=== PATIENT | female | born 1990 | race Caucasian/White ===

== ENCOUNTER → 2016-10-07 | Outpatient (CLI) | payer OTHER ==
[~2016-10-07] MED LIST: FLX10 PO; LRT5 PO; PENI-82 PO
== END | disposition home or self-care (01) ==
LOC: C.PAPS 14:28
PROVIDERS: ATTEND Obstetrics & Gynecology
DX: Z01.419 Encounter for gynecological examination (general) (routine) without abnormal findings (principal)

== ENCOUNTER 2023-09-21 04:44 | Inpatient (IN) ==
[2023-09-21] MEDS ORDERED: OXYTOCIN 30 UNITS/NSS 30 UNITS/500 ML BAG IV PRN (05:49)
[2023-09-21] MEDS ORDERED: LIDOCAINE 1% LOCAL 20 ML VIAL INFIL PRN (05:49)
[2023-09-21] MEDS: LACTATED RINGER'S 1,000 ML IV PRN (06:26)
[2023-09-21 06:36] LABS: Hematocrit (blood only) 37.4 % (37.0-47.0); Hemoglobin 12.6 g/dl (12.0-16.0); Mean Corpuscular Hemoglobin 30.8 pg (25.0-34.0); Mean Corpuscular Hgb Conc 33.7 g/dL (32.0-36.0); Mean Corpuscular Volume 91.4 fL (80.0-100.0); Mean Platelet Volume 11.3 fL (9.4-12.4); Platelet Count 209 K/uL (130-400); RDW Coefficient of Variation 14.7 % (11.5-14.5); RDW Standard Deviation 49.7 fL (36.4-46.3); Red Blood Count 4.09 M/uL (4.20-5.40); White Blood Count 10.19 K/ul (4.8-10.8)
--- NOTE | 2023-09-21 07:06 | History & Physical Report ---
Date of Service September 21, 2023 Assessment & Plan (1) Term : Plan: Will start Oxytocin to augment contractions Admission and Anticipated Discharge Date Admission Date: September 21, 2023 History of Present Illness Chief Complaint: water broke this morning Primary Care Provider: MARY ANN PCP 33 F P0000 at 39.3 weeks admitted to L&D at [facility] with SROM clear fluid without active contractions. GBS is negative. Allergies Allergy/AdvReac Type Severity Reaction Status Date / Time chlorpheniramine Allergy Unknown (from Verified 09/21/23 05:54 [facility]) unknown rxn Penicillins Allergy Unknown Unknown Verified 09/21/23 05:20 phenylephrine Allergy Unknown (from Verified 09/21/23 05:54 [facility]) unknown rxn lactose Allergy Abdominal Verified 09/21/23 05:21 Pain Home Medications Medication Instructions Recorded Confirmed Type prenat.vits,kirstie,[id number] 1 tab PO DAILY 11/26/21 09/21/23 History albuterol sulfate 90 mcg/actuation inhalation 09/21/23 History aerosol inhaler magnesium 250 mg tablet 250 mg PO DAILY 09/21/23 09/21/23 History omeprazole 20 mg tablet,delayed 20 mg PO DAILY 09/21/23 09/21/23 History release Patient History Medical History History of chicken pox Surgical History S/P surgical removal of pilonidal cyst Family History Grandmother (Paternal) Diabetes Hypertension Dyslipidemia Aunt Diabetes Ovarian cancer Paternal Grandfather (Paternal) Hypertension Dyslipidemia Mother Ulcerative colitis Denies family history of Breast cancer Colorectal cancer Social History (Updated 11/26/21 @ 10:06 by Gena Dutton) Smoking Status: Never smoker Do You Dip or Chew Tobacco: No; Hx Alcohol Use: Yes (Not during ) Hx Substance Use: No Preferred Language: Frisian Communication Ability: Effective Fabrication Supervisor Required: No Beliefs That Will Affect Care: None marital status: marital status details: Gal Riley (33) Current Living Situation: Spouse Current Living Situation Comment: lives with spouse, rabbit current occupational status: employed 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 Other Information That Helps Us Care for You: No Feels Safe at Home: Yes Safety Concerns: Feels Safe At This Time Assistive Devices: None 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 Review of Systems All systems reviewed & are unremarkable except as noted in HPI & below Physical Exam Constitutional: WD/WN, vitals as above Eyes: PERRL, conjunctivae normal, anicteric sclerae Respiratory: normal respiratory effort, lungs clear to auscultation Cardiovascular: RRR, no murmur, no edema Gastrointestinal (Abdomen): Inspection/Auscultation: abdomen normal to inspection Musculoskeletal: Extremities: extremities normal to inspection Skin: no rashes, warm and dry Neurologic: patellar DTR's 2+ bilat, sensation intact Psychiatric: A+Ox3, euthymic affect Genitourinary: Manual OB Exam: + cervical dilation fingertip, + cervical effacement 80%, + station high and + amniotic fluid clear OB Exam Monitor Tracing: + external FHT monitor used, + external uterine monitor used, + category I and + normal FHT variability EFW 7.5-8 lbs. Results & Data Vital Signs (Past 12 Hours) Vital Signs Temp Pulse Resp BP 09/21/23 06:31 18 09/21/23 06:31 36.4 C L 18 09/21/23 05:17 36.5 C 18 09/21/23 05:00 121 H 137/84 09/21/23 04:58 18 09/21/23 04:58 36.5 C 18 Laboratory Results Laboratory Results - last 48 hr 09/21/23 06:05 WBC 10.19 RBC 4.09 L Hgb 12.6 Hct 37.4 MCV 91.4 MCH 30.8 MCHC 33.7 RDW Std Deviation 49.7 H RDW Coeff of Caroline 14.7 H Plt Count 209 MPV 11.3 Monitoring External Monitor Cat 1
[2023-09-21] MEDS: OXYTOCIN 30 UNITS/NSS 30 UNITS/500 ML BAG IV PRN (07:28)
--- NOTE | 2023-09-21 09:24 | Obstetrical Progress Note ---
Date of Service September 21, 2023 Assessment & Plan Admission and Anticipated Discharge Date Admission Date: September 21, 2023 Subjective Patient is seen and examined. Reviewed her records and confirmed with her. She is 33-year-old -0-2-0 at 39 weeks and 4 days of gestation admitted this morning for SROM at 0 3:30 AM. Has been leaking clear fluids. Her has been uncomplicated except history of asthma, sinus tachycardia, anemia, status post IV iron infusions with normal H&H now. GBS negative She was started on oxytocin per protocol to augment contractions, now at 7 milliunits/min. she feels well, no complaints plans to get epidural when contractions get more painful. Vision exam by myself, lose 1 cm, 50% effaced, head is at -3 station. heart rate was tachycardic this morning and she was given IV fluid bolus of 500 mL and improved, now baseline is 150, category 1. Discussed the findings and what to expect. All questions were answered. Will continue to monitor closely and epidural when patient desires. Lab Results 09/21/23 09/21/23 Range/Units 05:30 06:05 WBC 10.19 (4.8-10.8) K/ul RBC 4.09 L (4.20-5.40) M/uL Hgb 12.6 (12.0-16.0) g/dl Hct 37.4 (37.0-47.0) % MCV 91.4 (80.0-100.0) fL MCH 30.8 (25.0-34.0) pg MCHC 33.7 (32.0-36.0) g/dL RDW Std Deviation 49.7 H (36.4-46.3) fL RDW Coeff of Caroline 14.7 H (11.5-14.5) % Plt Count 209 (130-400) K/uL MPV 11.3 (9.4-12.4) fL Amniotic Protein POS Results & Data Vital Signs (Past 12 Hours) Vital Signs Temp Pulse Resp BP 09/21/23 08:40 109 H 114/71 09/21/23 07:15 115 H 120/61 09/21/23 06:31 18 09/21/23 06:31 36.4 C L 18 09/21/23 05:17 36.5 C 18 09/21/23 05:00 121 H 137/84 09/21/23 04:58 18 09/21/23 04:58 36.5 C 18
--- NOTE | 2023-09-21 13:28 | Anesthesiology Consultation ---
Date of Service September 21, 2023 Assessment & Plan Chart Review Chart Review: Patient NOT seen in Pre Admission Testing and Acceptable Risk for Labor Epidural Consults Requested none ASA ASA2 Proposed Anesthesia Anesthesia Type: Labor Epidural Risk / Benefits Reviewed With: PT / POA / Parent / Guardian, Accepts Plan and Informed Consent Obtained History Height/Weight Height: 5 ft 1 in Weight: 75.8 kg Allergies Allergy/AdvReac Type Severity Reaction Status Date / Time chlorpheniramine Allergy Unknown (from Verified 09/21/23 05:54 [facility]) unknown rxn Penicillins Allergy Unknown Unknown Verified 09/21/23 05:20 phenylephrine Allergy [facility] unknown rxn lactose Allergy Abdominal Verified 09/21/23 05:21 Pain Medications Home Medications Medication Instructions Recorded Confirmed Last Taken prenat.vits,kirstie,[id number] 1 tab PO DAILY 11/26/21 09/21/23 09/20/23 21:00 albuterol sulfate 90 mcg/actuation inhalation 09/21/23 Unknown aerosol inhaler magnesium 250 mg tablet 250 mg PO DAILY 09/21/23 09/21/23 09/20/23 21:00 omeprazole 20 mg tablet,delayed 20 mg PO DAILY 09/21/23 09/21/23 09/20/23 10:30 release Active Medications Generic Name Dose Route Start Last Admin Trade Name Freq PRN Reason Stop Dose Admin Lactated Ringer's 1,000 mls @ 150 mls/hr 09/21/23 05:49 09/21/23 09:34 Lr IV 09/23/23 05:48 150 mls/hr .[id number] PRN Administration L&D Protocol Protocol Oxytocin 30 units in 500 mls @ 20 mls/hr 09/21/23 07:01 09/21/23 13:05 Pitocin 30 Units/Nss IV 09/23/23 07:00 1.2 units/hr .Q24H PRN 20 mls/hr Labor Induction/Augmentation Titration Protocol 1.2 UNITS/HR NPO Date Last Intake of Fluids: 09/21/23 Time Last Intake of Fluids: 13:00 Date Last Intake of Solids: 09/20/23 Time Last Intake of Solids: 20:00 Past Medical History Medical History History of chicken pox Exercise / Class Metabolic Activity 1 > 8 Run/Swim/Ski/Tennis Past Family History Family History Grandmother (Paternal) Diabetes Hypertension Dyslipidemia Aunt Diabetes Ovarian cancer Paternal Grandfather (Paternal) Hypertension Dyslipidemia Mother Ulcerative colitis Denies family history of Breast cancer Colorectal cancer Past Surgical History Surgical History S/P surgical removal of pilonidal cyst Past Anesthesia History No Hx of Anesthesia Complications and No Family Hx of Anesthesia Complications History of PONV No Hx of PONV and No Hx of Motion Sickness Social History Smoking Status: Never smoker Do You Dip or Chew Tobacco: No Hx Alcohol Use: Yes (Not during ) Hx Substance Use: No Review of Systems ROS Unobtainable: All systems reviewed & are unremarkable except as noted in HPI & below Physical Exam Vital Signs Last Vital Signs Temp 36.4 C L 09/21/23 06:31 Pulse 89 09/21/23 13:25 Resp 18 09/21/23 06:31 BP 129/69 09/21/23 13:24 Pulse Ox 100 09/21/23 13:25 ENMT Mouth: no TMJ abnormality Thyromental Distance: > or= 3.5 Finger Breadths Mallampati Class: II Neck normal visual inspection and trachea midline; neck extension not limited Respiratory normal respiratory effort Auscultation: lungs clear to auscultation bilaterally Cardiovascular Rate/Rhythm: regular rate and regular rhythm Heart Sounds: no murmur Musculoskeletal Spine: normal cervical ROM Extremities: full ROM of extremities Neurologic moves all extremities Psychiatric Orientation: alert and oriented x 3 Testing Laboratory Results 09/21/23 06:05
[2023-09-21] MEDS ORDERED: LIDOCAINE 2%/EPINEPHRINE 1:200,000 20 ML PF ONE (13:33)
[2023-09-21] MEDS: fentANYL 2 MCG/ML BUPIVacaine 0.125%-NSS 100ML BAG ONE (13:46)
[2023-09-21] MEDS ORDERED: NALOXONE HCL 1 MG in SODIUM CHLORIDE 0.9% 1,000 ML IV PRN (13:50)
[2023-09-21] MEDS ORDERED: SODIUM CHLORIDE 0.9% PF INJ 10 ML VIAL EPI PRN (13:50)
[2023-09-21] MEDS ORDERED: NALOXONE HCL 0.4 MG/1 ML VIAL/CARP IV PRN (13:50)
[2023-09-21] MEDS ORDERED: LIDOCAINE 2% MPF LOCAL 5 ML VIAL EPI PRN (13:50)
[2023-09-21] MEDS ORDERED: ePHEDrine sulfate 50 MG/ML AMP IV PRN (13:50)
[2023-09-21] MEDS ORDERED: diphenhydrAMINE 50 MG/ML VIAL IV PRN (13:50)
[2023-09-21] MEDS ORDERED: fentaNYL citrate PF 100 MCG/2 ML VIAL EPI PRN (13:50)
[2023-09-21] MEDS ORDERED: BUPIVACAINE 0.25% PF 30 ML VIAL EPI PRN (13:50)
[2023-09-21] MEDS: fentaNYL citrate PF 100 MCG/2 ML VIAL ONE (13:50)
[2023-09-21] MEDS ORDERED: NALBUPHINE HCL 5 MG in SYRINGE 0 ML IV PRN (13:50)
[2023-09-21] MEDS: BUPIVACAINE 0.25% PF 30 ML VIAL ONE (13:50)
[2023-09-21] MEDS ORDERED: ROPIVACAINE 0.5% PF 5 MG/ML 20 ML VIAL EPI PRN (13:50)
[2023-09-21] MEDS: ePHEDrine sulfate 50 MG/ML AMP ONE (14:24)
[2023-09-21] MEDS: SODIUM CHLORIDE 0.9% PF INJ 10 ML VIAL ONE (14:25)
[2023-09-21] MEDS ORDERED: Nursing to Pharmacy Communication SCH (16:45)
--- NOTE | 2023-09-21 18:35 | Obstetrical Progress Note ---
Date of Service September 21, 2023 Assessment & Plan Admission and Anticipated Discharge Date Admission Date: September 21, 2023 Subjective Late entry from 4:45 pm Patient is comfortable Oxytocin has been at 20 miu/min. VE: 3-4 cm/ 70%/-2, IUPC was placed FHR categ I Continue to monitor Adjust the dose of Oxytocin per readings. Results & Data Vital Signs (Past 12 Hours) Vital Signs Temp Pulse Resp BP Pulse Ox 09/21/23 18:30 93 H 100 09/21/23 18:26 88 119/63 09/21/23 18:25 86 99 09/21/23 18:20 104 H 98 09/21/23 18:15 98 H 99 09/21/23 18:11 100 H 114/57 L 09/21/23 18:10 106 H 100 09/21/23 18:05 97 H 98 09/21/23 18:01 18 09/21/23 18:01 36.8 C 18 09/21/23 18:00 93 H 99 09/21/23 17:55 100 09/21/23 17:55 93 H 09/21/23 17:55 94 H 102/56 L 09/21/23 17:50 88 99 09/21/23 17:45 82 99 09/21/23 17:40 94 H 113/57 L 100 09/21/23 17:35 89 99 09/21/23 17:30 37.3 C 90 99 09/21/23 17:26 90 110/54 L 09/21/23 17:25 107 H 99 09/21/23 17:20 79 100 09/21/23 17:15 85 99 09/21/23 17:10 100 09/21/23 17:10 83 09/21/23 17:10 83 129/67 09/21/23 17:05 81 100 09/21/23 17:00 81 100 09/21/23 16:55 82 100 09/21/23 16:54 86 123/70 09/21/23 16:50 103 H 100 09/21/23 16:45 92 H 100 09/21/23 16:42 87 140/77 09/21/23 16:40 85 99 09/21/23 16:35 77 99 09/21/23 16:30 78 100 09/21/23 16:27 77 125/67 09/21/23 16:25 81 100 09/21/23 16:20 90 100 09/21/23 16:15 99 H 100 09/21/23 16:10 100 09/21/23 16:10 87 09/21/23 16:10 87 129/62 91 09/21/23 16:05 83 100 09/21/23 16:00 91 H 100 09/21/23 15:55 93 H 127/64 100 09/21/23 15:50 75 100 09/21/23 15:45 85 100 09/21/23 15:40 95 H 100 09/21/23 15:35 72 100 09/21/23 15:30 69 99 09/21/23 15:25 100 09/21/23 15:25 89 05 15:25 71 126/68 09/21/23 15:20 78 100 09/21/23 15:15 86 96 09/21/23 15:11 76 122/71 09/21/23 15:10 78 100 09/21/23 15:05 100 H 98 09/21/23 15:00 72 100 09/21/23 14:55 75 121/67 100 09/21/23 14:50 74 100 09/21/23 14:45 68 99 09/21/23 14:40 99 09/21/23 14:40 71 09/21/23 14:40 67 115/63 09/21/23 14:35 71 99 09/21/23 14:30 70 99 09/21/23 14:25 71 113/71 100 09/21/23 14:22 73 92 09/21/23 14:20 70 98 09/21/23 14:15 75 99 09/21/23 14:10 87 116/64 98 09/21/23 14:05 89 98 09/21/23 14:00 36.5 C 16 09/21/23 14:00 80 99 09/21/23 13:55 84 99 09/21/23 13:54 86 121/75 09/21/23 13:51 83 124/74 09/21/23 13:50 98 09/21/23 13:50 83 05 13:50 85 126/77 09/21/23 13:47 96 H 119/73 09/21/23 13:45 91 H 124/69 99 05/30/24 13:42 96 H 121/70 09/21/23 13:40 97 H 100 09/21/23 13:39 91 H 130/74 09/21/23 13:35 100 H 100 09/21/23 13:31 110 H 131/84 09/21/23 13:30 96 H 100 09/21/23 13:25 89 100 09/21/23 13:24 84 129/69 09/21/23 13:20 96 H 100 09/21/23 13:18 91 H 129/69 09/21/23 13:15 88 100 09/21/23 12:31 98 H 129/83 09/21/23 12:01 90 126/74 09/21/23 11:30 96 H 132/77 09/21/23 11:00 36.5 C 16 09/21/23 08:40 109 H 114/71 09/21/23 08:00 36.5 C 18 09/21/23 07:15 115 H 120/61
--- NOTE | 2023-09-21 20:10 | Obstetrical Progress Note ---
Date of Service September 21, 2023 Assessment & Plan Admission and Anticipated Discharge Date Admission Date: September 21, 2023 Subjective Patient is reevaluated She is sitting on high Fowlers position VE; 7-8 cm/ 90%/ 0 to +1 FHR categ I [place], IUPC with ctxs q 2-3 min, 210 MVIU, Oxytocin is at 26 miu/min Continue to monitor Start IV AB, Cfeazolin, for prolonged ROM, has used Keflex before with no reaction Results & Data Vital Signs (Past 12 Hours) Vital Signs Temp Pulse Resp BP Pulse Ox 09/21/23 20:05 102 H 99 09/21/23 20:00 98 H 99 09/21/23 19:55 94 H 98 09/21/23 19:54 90 122/75 09/21/23 19:50 100 H 98 09/21/23 19:45 107 H 97 09/21/23 19:40 110 H 98 09/21/23 19:39 88 130/76 09/21/23 19:35 106 H 98 09/21/23 19:30 102 H 100 09/21/23 19:25 99 H 99 09/21/23 19:20 90 99 09/21/23 19:15 36.8 C 106 H 18 98 09/21/23 19:10 97 H 129/63 98 09/21/23 19:05 102 H 98 09/21/23 19:00 93 H 99 09/21/23 18:55 105 H 98 09/21/23 18:54 110 H 118/67 09/21/23 18:50 90 99 09/21/23 18:45 94 H 99 09/21/23 18:40 100 H 99 09/21/23 18:39 90 121/66 09/21/23 18:35 94 H 100 09/21/23 18:30 93 H 100 09/21/23 18:26 88 119/63 09/21/23 18:25 86 99 09/21/23 18:20 104 H 98 09/21/23 18:15 98 H 99 09/21/23 18:11 100 H 114/57 L 09/21/23 18:10 106 H 100 09/21/23 18:05 97 H 98 09/21/23 18:01 18 09/21/23 18:01 36.8 C 18 09/21/23 18:00 93 H 99 09/21/23 17:55 100 09/21/23 17:55 93 H 09/21/23 17:55 94 H 102/56 L 09/21/23 17:50 88 99 09/21/23 17:45 82 99 09/21/23 17:40 94 H 113/57 L 100 09/21/23 17:35 89 99 09/21/23 17:30 37.3 C 90 99 09/21/23 17:26 90 110/54 L 09/21/23 17:25 107 H 99 09/21/23 17:20 79 100 09/21/23 17:15 85 99 09/21/23 17:10 100 09/21/23 17:10 83 09/21/23 17:10 83 129/67 09/21/23 17:05 81 100 09/21/23 17:00 81 100 09/21/23 16:55 82 100 09/21/23 16:54 86 123/70 09/21/23 16:50 103 H 100 09/21/23 16:45 92 H 100 09/21/23 16:42 87 140/77 09/21/23 16:40 85 99 09/21/23 16:35 77 99 09/21/23 16:30 78 100 09/21/23 16:27 77 125/67 09/21/23 16:25 81 100 09/21/23 16:20 90 100 09/21/23 16:15 99 H 100 09/21/23 16:10 100 09/21/23 16:10 87 09/21/23 16:10 87 129/62 91 09/21/23 16:05 83 100 09/21/23 16:00 91 H 100 09/21/23 15:55 93 H 127/64 100 09/21/23 15:50 75 100 09/21/23 15:45 85 100 09/21/23 15:40 95 H 100 09/21/23 15:35 72 100 09/21/23 15:30 69 99 09/21/23 15:25 100 09/21/23 15:25 89 05 15:25 71 126/68 09/21/23 15:20 78 100 09/21/23 15:15 86 96 09/21/23 15:11 76 122/71 05/30/24 15:10 78 100 09/21/23 15:05 100 H 98 09/21/23 15:00 72 100 09/21/23 14:55 75 121/67 100 09/21/23 14:50 74 100 09/21/23 14:45 68 99 09/21/23 14:40 99 09/21/23 14:40 71 09/21/23 14:40 67 115/63 09/21/23 14:35 71 99 09/21/23 14:30 70 99 09/21/23 14:25 71 113/71 100 09/21/23 14:22 73 92 09/21/23 14:20 70 98 09/21/23 14:15 75 99 09/21/23 14:10 87 116/64 98 09/21/23 14:05 89 98 09/21/23 14:00 36.5 C 16 09/21/23 14:00 80 99 09/21/23 13:55 84 99 09/21/23 13:54 86 121/75 09/21/23 13:51 83 124/74 09/21/23 13:50 98 09/21/23 13:50 83 09/21/23 13:50 85 126/77 09/21/23 13:47 96 H 119/73 09/21/23 13:45 91 H 124/69 99 09/21/23 13:42 96 H 121/70 09/21/23 13:40 97 H 100 09/21/23 13:39 91 H 130/74 05 13:35 100 H 100 09/21/23 13:31 110 H 131/84 09/21/23 13:30 96 H 100 09/21/23 13:25 89 100 09/21/23 13:24 84 129/69 09/21/23 13:20 96 H 100 09/21/23 13:18 91 H 129/69 09/21/23 13:15 88 100 09/21/23 12:31 98 H 129/83 09/21/23 12:01 90 126/74 09/21/23 11:30 96 H 132/77 09/21/23 11:00 36.5 C 16 09/21/23 08:40 109 H 114/71
[2023-09-21] MEDS: ceFAZolin 2000MG 2,000 MG/15 ML SYR IV SCH (21:07)
[2023-09-21] MEDS: fentANYL 2 MCG/ML BUPIVacaine 0.125%-NSS 100ML BAG EPI PRN (21:41)
--- NOTE | 2023-09-21 23:24 | Obstetrical Progress Note ---
Date of Service September 21, 2023 Assessment & Plan Admission and Anticipated Discharge Date Admission Date: September 21, 2023 Subjective Patient is reevalauted. She feels crampy, no pressure VSS Afebrile, FHR categ I [place] ctx q 2-3 min, 200-210 MVU VE; 8/ 90%/ 0 to +1 with contraction, coned head Bed side US: Direct OP, Measurements limited due to head in pelvis and no fluids around baby, EFW 3614 lb, 8 lb, +/- 1 lb Mom in 5 feet 1 inch Discussed the findings with change in cervix despite adequate contractions Discussed OP, Possible CPD, LGA Options of either C section now or stop Oxytocin for 1 hour and restart Patient wants to think about it and decide. Continue to monitor Results & Data Vital Signs (Past 12 Hours) Vital Signs Temp Pulse Resp BP Pulse Ox 09/21/23 23:16 81 100 09/21/23 23:11 91 H 100 09/21/23 23:06 85 100 09/21/23 23:01 101 H 100 09/21/23 22:56 89 100 09/21/23 22:54 99 H 124/68 09/21/23 22:51 91 H 99 09/21/23 22:46 84 99 09/21/23 22:41 100 09/21/23 22:41 81 09/21/23 22:41 81 136/71 09/21/23 22:36 86 100 09/21/23 22:31 84 100 09/21/23 22:30 18 09/21/23 22:30 18 09/21/23 22:26 77 99 09/21/23 22:25 96 H 136/77 09/21/23 22:21 89 100 09/21/23 22:16 84 99 09/21/23 22:11 72 99 09/21/23 22:09 90 124/70 09/21/23 22:06 85 100 09/21/23 22:01 77 100 09/21/23 22:00 18 09/21/23 22:00 18 09/21/23 21:56 76 139/76 100 09/21/23 21:51 70 100 09/21/23 21:46 76 100 09/21/23 21:41 73 100 09/21/23 21:40 76 118/75 09/21/23 21:36 87 100 09/21/23 21:31 71 100 09/21/23 21:30 20 09/21/23 21:30 20 09/21/23 21:26 100 09/21/23 21:26 80 09/21/23 21:26 71 131/73 09/21/23 21:25 37.0 C 09/21/23 21:21 78 100 09/21/23 21:16 72 100 09/21/23 21:11 86 100 09/21/23 21:10 85 123/64 09/21/23 21:06 71 100 09/21/23 21:01 85 99 09/21/23 21:00 18 09/21/23 21:00 18 09/21/23 20:56 85 100 09/21/23 20:54 83 126/73 09/21/23 20:51 74 99 09/21/23 20:46 82 100 09/21/23 20:41 71 99 09/21/23 20:40 74 123/63 09/21/23 20:36 80 100 09/21/23 20:31 81 100 09/21/23 20:30 18 09/21/23 20:30 18 09/21/23 20:26 79 100 09/21/23 20:25 81 121/62 09/21/23 20:21 79 100 09/21/23 20:16 79 100 09/21/23 20:11 81 118/65 100 09/21/23 20:05 102 H 99 09/21/23 20:00 98 H 18 99 09/21/23 19:55 94 H 98 09/21/23 19:54 90 122/75 09/21/23 19:50 100 H 98 09/21/23 19:45 107 H 97 09/21/23 19:40 110 H 98 09/21/23 19:39 88 130/76 09/21/23 19:35 106 H 98 09/21/23 19:30 102 H 100 09/21/23 19:25 99 H 99 09/21/23 19:20 36.8 C 20 09/21/23 19:20 90 99 09/21/23 19:15 36.8 C 106 H 18 98 09/21/23 19:10 97 H 129/63 98 09/21/23 19:05 102 H 98 09/21/23 19:00 93 H 99 09/21/23 18:55 105 H 98 09/21/23 18:54 110 H 118/67 09/21/23 18:50 90 99 09/21/23 18:45 94 H 99 09/21/23 18:40 100 H 99 09/21/23 18:39 90 121/66 09/21/23 18:35 94 H 100 09/21/23 18:30 93 H 100 09/21/23 18:26 88 119/63 09/21/23 18:25 86 99 09/21/23 18:20 104 H 98 09/21/23 18:15 98 H 99 09/21/23 18:11 100 H 114/57 L 09/21/23 18:10 106 H 100 09/21/23 18:05 97 H 98 09/21/23 18:01 18 09/21/23 18:01 36.8 C 18 09/21/23 18:00 93 H 99 09/21/23 17:55 100 09/21/23 17:55 93 H 09/21/23 17:55 94 H 102/56 L 09/21/23 17:50 88 99 09/21/23 17:45 82 99 09/21/23 17:40 94 H 113/57 L 100 09/21/23 17:35 89 99 09/21/23 17:30 37.3 C 90 99 09/21/23 17:26 90 110/54 L 09/21/23 17:25 107 H 99 09/21/23 17:20 79 100 09/21/23 17:15 85 99 09/21/23 17:10 100 09/21/23 17:10 83 09/21/23 17:10 83 129/67 09/21/23 17:05 81 100 09/21/23 17:00 81 100 09/21/23 16:55 82 100 09/21/23 16:54 86 123/70 09/21/23 16:50 103 H 100 09/21/23 16:45 92 H 100 09/21/23 16:42 87 140/77 09/21/23 16:40 85 99 09/21/23 16:35 77 99 09/21/23 16:30 78 100 09/21/23 16:27 77 125/67 09/21/23 16:25 81 100 09/21/23 16:20 90 100 09/21/23 16:15 99 H 100 09/21/23 16:10 100 09/21/23 16:10 87 09/21/23 16:10 87 129/62 91 09/21/23 16:05 83 100 09/21/23 16:00 91 H 100 09/21/23 15:55 93 H 127/64 100 09/21/23 15:50 75 100 09/21/23 15:45 85 100 09/21/23 15:40 95 H 100 09/21/23 15:35 72 100 09/21/23 15:30 69 99 09/21/23 15:25 100 09/21/23 15:25 89 09/21/23 15:25 71 126/68 09/21/23 15:20 78 100 09/21/23 15:15 86 96 09/21/23 15:11 76 122/71 09/21/23 15:10 78 100 09/21/23 15:05 100 H 98 09/21/23 15:00 72 100 09/21/23 14:55 75 121/67 100 09/21/23 14:50 74 100 09/21/23 14:45 68 99 09/21/23 14:40 99 09/21/23 14:40 71 09/21/23 14:40 67 115/63 09/21/23 14:35 71 99 09/21/23 14:30 70 99 09/21/23 14:25 71 113/71 100 09/21/23 14:22 73 92 09/21/23 14:20 70 98 09/21/23 14:15 75 99 09/21/23 14:10 87 116/64 98 09/21/23 14:05 89 98 09/21/23 14:00 36.5 C 16 09/21/23 14:00 80 99 09/21/23 13:55 84 99 09/21/23 13:54 86 121/75 09/21/23 13:51 83 124/74 09/21/23 13:50 98 09/21/23 13:50 83 09/21/23 13:50 85 126/77 09/21/23 13:47 96 H 119/73 09/21/23 13:45 91 H 124/69 99 05/24 13:42 96 H 121/70 09/21/23 13:40 97 H 100 09/21/23 13:39 91 H 130/74 09/21/23 13:35 100 H 100 09/21/23 13:31 110 H 131/84 09/21/23 13:30 96 H 100 09/21/23 13:25 89 100 09/21/23 13:24 84 129/69 09/21/23 13:20 96 H 100 09/21/23 13:18 91 H 129/69 09/21/23 13:15 88 100 09/21/23 12:31 98 H 129/83 09/21/23 12:01 90 126/74 09/21/23 11:30 96 H 132/77
--- OUTSIDE RECORDS SUMMARY | 2023-09-21 23:41 | External Medical Summary | Summary of Care ---
Author Name Unknown Organization [facility] Address [address] [place] [address] Phone [phone] Care Team Providers Care Logging Tractor Operator Name Role Phone Shelby Hector MD Primary Care Provid er Reason for Visit * Reason Onset Date Comments Anemia Follow-Up 09/20/2023 Encounter Details Date Type Department Care Team (Late st Contact Info) Description 09/14/2023 9:30 AM EDT Pharmacy Pharmacy, [facility] [address] [place] [address] Clinic, Anemia [address] [place] [address] Iron deficiency anemia, unspecified iron deficiency anemia type* Allergies Active Allergy Reactions Criticality Noted Date Comments Erythromycin Base 06/04/2002 rash Lactose Other (Please comment) High 08/04/2015 Dietary. Lactose intolerant, Severe G.I. Intolerance. Penicillins 05/18/1999 "As a child, unsure of reaction." Chlorpheniramine-Phenyl ephrine Rash Low 10/29/2010 documented as of this encounter (statuses as of 09/20/2023) Medications Medication Sig Dispensed Refills Start Date End Date Status Vitamin 27-0.8 MG Oral Tablet Take by mouth daily . Active Albuterol Sulfate HFA 108 (90 Base) MCG/ACT Inhalation Aerosol SolutionIndications:M ild persistent extrinsic asthma without complication INHALE 2 PUFFS BY MOUTH 4 TIMES A DAY. 18 g 3 02/07/2022 Active Albuterol Sulfate HFA 108 (90 Base) MCG/ACT Inhalation Aerosol SolutionIndications:M ild persistent extrinsic asthma without complication Inhale by mouth 2 Puffs every 4 hours as needed (wheeze or cough or sob). 18 g 3 02/07/2022 Active Clindamycin Phos-Benzoyl Perox 1-5 % External GelIndications:Cystic acne Apply topically to affected area 2 times a day. To affected area (after washing and drying area). 60 g 11 09/23/2022 Active Omeprazole 20 MG Oral Capsule Delayed Release (PriLOSEC) Take 1 Capsule by mouth in the morning. Active Iron-Vitamin C 65-125 MG Oral Tablet (Vitron C) Take 1 Tablet by mouth in the morning. 90 Tablet 1 06/23/2023 Active documented as of this encounter (statuses as of 09/20/2023) Active Problems Problem Noted Date Diagnosed Date Iron deficiency anemia 07/25/2023 Anxiety 03/01/2023 Irritable bowel syndrome 03/01/2023 Normal 03/01/2023 AMA (advanced maternal age) multigravida 35+ 11/2022 Rh negative status during 03/01/2023 Maternal asthma complicating 3 Genetic testing 11/07/2022 Overview: Chromosome analysis/karyotype completed for recurrent loss. NORMAL FEMALE karyotype, 46,XX. Screening for genetic disease carrier status Overview: Expanded carrier screening for 556 genes completed. Found to be negative for all conditions screened for. See scanned in report on 10.20.2022. EXTRINSIC ASTHMA, -EXERCISE INDUCED 08/04/2004 Idiopathic scoliosis 08/04/2004 Estimated Date of Delivery Comme nts Yes 09/25/2023 Based on last me nstrual period of 12/19/2022 documented as of this encounter (statuses as of 09/20/2023) Resolved Problems Problem Noted Date Diagnosed Date Resolved Date Pilonidal cyst 08/17/2010 09/26/2016 CELLULITIS OF BUTTOCK, RIGHT UPPER 08/17/2010 07/15/2016 STREP SORE THROAT 06/04/2002 07/15/2016 ACUTE URI NOS 06/04/2002 07/15/2016 documented as of this encounter (statuses as of 09/20/2023) Immunizations Name Administration Dates Next Due PPD 12/08/2015 Season Influenza, Cell Cultu re, 18+ Yrs, With Preserv (Flucelvax) 01/22/2014 Seasonal Influenza, Quadriva lent, No Preserve, IM 01/27/2016 Seasonal Influenza, Split, I IV3, With Preserve, Inj 01/16/2015,02/18/2014,01/25/2010 TDAP (age 10 and older)(Boostrix) 07/06/2023 TDAP (age 11 and older)(Adacel) 03/17/2010 documented as of this encounter Social History Tobacco Use Types Packs/Day Years Used Date Smoking Tobacco: Never Smokeless Tobacco: Never Comments:mom, step dad smoke s in house Alcohol Use Standard Drinks/Week Comments Not Currently 0 (1 standard drink = 0.6 oz pur e alcohol) rare PHQ-2 Answer Date Recorded PHQ Adult Total Score 0 08/15/2023 Hunger Vital Sign Answer Date Recorded Within the past 12 months, y ou worried that your food would run out before you got the money to buy more. Never true 08/15/19 24 Within the past 12 months, t he food you bought just didn't last and you didn't have money to get more. Never true 08/15/2023 Chaparral Depression Scale Answer Date Recorded Chaparral Depression Scale Total 4 08/15/2023 The thought of harming myself has occurred to me . Never 08/15/2023 Estimated Date of Delivery Comme nts Yes 09/25/2023 Based on last me nstrual period of 12/19/2022 Sex and Gender Information Value Date Recorded Sex Assigned at Female 09/25/2022 9:45 PM EDT Gender Identity Female 09/25/2022 9:45 PM EDT Sexual Orientation Straight 10/30/2018 2: 40 PM EDT Job Start Date Occupation Industry Not on file Not on file Not on file documented as of this encounter Progress Notes * Karis Pink, [facility] - 09/20/2023 11:21 AM EDT Patient Phone Numbers Reviewed labs from 09/13/23. Hgb: 13.2 g/dL TSAT: 46 % Ferritin: 165 ng/mL B12: 267 FA: >20 GA: 39w2d TIMOTHY: 09/25/23 S/p Venofer 300 mg x 3 on 08/02, 08/09 and 08/16 Hgb and Iron studies within goal. Patient does not qualify for anemia pharmacologic intervention atthis time. Plan: Given late GA no additional anemia intervention required. Anemia clinic will sign off. Thank you for allowing us to participate in the care of this patient. Karis Pink, PharmD [facility] Clinical Pharmacist 09/20/2023 11:23 AM Lab Results Component Value Date/Time HGB 13.2 09/13/2023 08:36 AM HGB 11.1 (L) 07/20/2023 12:15 PM HGB 10.6 (L) 07/12/2023 03:04 PM HGB 14.2 07/10/2017 10:52 AM No results found for: "HEMOGLOBIN-OUTSIDE LAB" Results for orders placed or performed in visit on 09/13/23 IRON SCREEN, INCLUDING TIBC Result Value Ref Range Iron 164 (H) 33 - 151 ug/dL Iron Binding Capacity 354 250 - 425 ug/dL Transferrin Saturation Percent 46 15 - 55 % Results for orders placed or performed in visit on 07/20/23 IRON SCREEN, INCLUDING TIBC Result Value Ref Range Iron 82 33 - 151 ug/dL Iron Binding Capacity 395 250 - 425 ug/dL Transferrin Saturation Percent 21 15 - 55 % Results for orders placed or performed in visit on 06/22/23 IRON SCREEN, INCLUDING TIBC Result Value Ref Range Iron 57 33 - 151 ug/dL Iron Binding Capacity 461 (H) 250 - 425 ug/dL Transferrin Saturation Percent 12 (L) 15 - 55 % No results found for: "TRANSFERRIN SAT %-OUTSIDE LAB" Lab Results Component Value Date/Time FERRITIN - [facility] 165 (H) 09/13/2023 08:36 AM FERRITIN - [facility] 9 (L) 06/22/2023 11:37 AM No results found for: "FERRITIN-OUTSIDE LAB" documented in this encounter Plan of Treatment Upcoming Encounters Date Type Department Care Team (Late st Contact Info) Description 09/22/2023 8:45 AM EDT Office Visit Gynecology/Obstetrics [facility] [address] [place] [id number] Nehal Mendoza CRNP [address] [place] [address] Health Maintenance Due Date Last Done Comments Pneumococcal Vaccine: Pediatrics (0 to 5 Years) and At-Risk Patients (6 to 64 Years) (1 of 2 - PCV) 02/04/1994 COVID-19 Vaccine (1 - 2022-24 season) 2022 Influenza Vaccine (FLU shot) (Season Ended) 2023 07/10/2017 (Declined), 01/27/2016, 01/16/2015, Additional history exists Depression Screening 08/14/2024 08/15/2023 Pap Smear 03/01/2026 03/01/2023, 09/23, 10/07/2016, Additional history exists Diabetes Screening 07/11/2026 07/12/2023, 0 11/20/2020, 07/10/2017, Additional history exists Cervical Cancer Screening 03/01/2028 HPV/Co-Test 03/01/2028 03/01/2023 DTaP,Tdap,and Td Vaccines (8 - Td or Tdap) 07/05/2033 07/06/2023, 03/17/2010, 02/09/1999, Additional history exists Hepatitis B Completed 06/15/1999, 01/22, 11/16/1998 GARDASIL-HPV IMMUNIZATION SERIES Aged Out No longer eligible based on patient's age to complete this topic MENINGOCOCCAL (MENACTRA/MENVEO) Aged Out No longer eligible based on patient's age to complete this topic documented as of this encounter Medical Devices Not on filedocumented as of this encounter Visit Diagnoses Diagnosis Iron deficiency anemia, unspecified iron deficiency anemia type- Primary documented in this encounter Advance Directives * Full Code (Latest Code Status on File) Date Activated Date Inactivated Comments 10/04/2019 12:16 PM 10/04/2019 6:39 PM This order reflects the patients wishes and were consensually agreed upon. Care Teams Logging Tractor Operator Relationship Specialty Start Date End Date Shelby Hector MD [address] [facility] [place] [address] PCP - General Family Medicine 06/14/22 documented as of this encounter
--- OUTSIDE RECORDS SUMMARY | 2023-09-21 23:42 | External Medical Summary | Summary of Care ---
Author Name Unknown Organization [facility] Address [address] [facility] [place] [address] Phone [phone] Care Team Providers Care Shipping Clerk Crating Name Role Phone Shelby Hector MD Primary Care Provid er Reason for Visit * Reason Comments Return Visit Encounter Details Date Type Department Care Team (Late st Contact Info) Description 09/01/2023 8:30 AM EDT Office Visit Gynecology/Obstetric s [facility] [address] [place] [address] Gail Peterson CRNP [address] [place] [address] Normal in third trimester*; Multigravida of advanced maternal age in third trimester; Rh negative status during in third trimester; Maternal asthma complicating Allergies Active Allergy Reactions Criticality Noted Date Comments Erythromycin Base 06/04/2002 rash Lactose Other (Please comment) High 08/04/2015 Dietary. Lactose intolerant, Severe G.I. Intolerance. Penicillins 05/18/1999 "As a child, unsure of reaction." Chlorpheniramine-Phenyl ephrine Rash Low 10/29/2010 documented as of this encounter (statuses as of 09/01/2023) Medications Medication Sig Dispensed Refills Start Date End Date Status Vitamin 27-0.8 MG Oral Tablet Take by mouth daily . 0 Active Albuterol Sulfate HFA 108 (90 Base) [...] 1 Capsule by mouth in the morning. 0 Active Iron-Vitamin C 65-125 MG Oral Tablet (Vitron C) Take 1 Tablet by mouth in the morning. 90 Tablet 1 06/23/2023 Active documented as of this encounter (statuses as of 09/01/2023) Active Problems Problem Noted Date Diagnosed Date [...] as of this encounter (statuses as of 09/01/2023) Resolved Problems Problem Noted Date Diagnosed Date Resolved Date Pilonidal cyst 08/17/2010 09/26/2016 CELLULITIS OF BUTTOCK, RIGHT UPPER 08/17/2010 07/15/2016 STREP SORE THROAT 06/04/2002 07/15/2016 ACUTE URI NOS 06/04/2002 07/15/2016 documented as of this encounter (statuses as of 09/01/2023) Immunizations Name Administration Dates Next Due PPD [...] money to get more. Never true 08/15/2023 [place] Depression Scale Answer Date Recorded [place] Depression Scale Total 4 08/15/2023 The thought [...] on file documented as of this encounter Last Filed Vital Signs Vital Sign Reading Time Taken Comments Blood Pressure 118/74 09/01/2023 8:34 AM EDT Pulse - - Temperature - - Respiratory Rate - - Oxygen Saturation - - Inhaled Oxygen Concentration - - Weight 75.3 kg (166 lb) 09/01/2023 8:34 AM EDT Height - - Body Mass Index 29.41 08/01/2023 3:44 PM EDT documented in this encounter Progress Notes * Gail Peterson CRNP - 09/01/2023 8:41 AM EDT 36w4d Baby moving well, no regular ctx or leaking/bleeding. Denies new ZAZUETA, visual changes, epigastric pain. Bilateral LE edema - encouraged to push fluids, usecompression socks, elevate, decrease dietary salt. BP is normal. Baby is cephalic by Almas's. GBS collected today. Reviewed labor precautions and FKC. 1 week return Race Car Mechanic Documentation Provider requested sales floor associate. Name of sales floor associate: SAVI Rodriguez * Barbi Garcia LPN - 09/01/2023 8:34 AM EDT 36w4d Denies vaginal bleeding/rom + movement Bilat lower extremity swelling- trying to elevate, wearing compression stockings documented in this encounter Plan of Treatment Upcoming Encounters Date Type Department Care Team (Late st Contact Info) Description 09/05/2023 8:45 AM EDT Office Visit Gynecology/Obstetrics [facility] [address] [place] [address] Gail Peterson CRNP [address] [place] [address] 09/13/2023 8:10 AM EDT [facility] [address] [place] [phone] Mikhail Dixon [address] [place] [address] 09/13/2023 8:45 AM EDT Office Visit Gynecology/Obstetrics [facility] [place] [address] Reyes Bashir [facility] [place] [address] 09/14/2023 9:30 AM EDT Pharmacy Pharmacy, [address] [address] 09/22/2023 8:45 AM EDT Office Visit Gynecology/Obstetrics [facility] [place] [address] Nehal Mendoza CRNP [address] [place] [address] Pending Results Name Type Priority Associated Diagnoses Date /Time GROUP B STREP CULTURE/PCR Lab Routine Normal in third trimester 09/01/2023 8:49 AM EDT Health Maintenance Due Date Last Done Comments Pneumococcal Vaccine: Pediatrics (0 to 5 Years) and At-Risk Patients (6 to 64 Years) (1 of 2 - PCV) 02/04/1994 COVID-19 Vaccine ( - season) 2022 Influenza Vaccine (FLU shot) (Season Ended) 2023 07/10/2017 (Declined), 01/27/2016, 01/16/2015, Additional history exists Depression Screening 08/14/2024 08/15/2023 Pap Smear 03/01/2026 03/01/2023, 06/08/2017, 10/07/2016, Additional history exists Diabetes Screening 07/11/2026 [...] as of this encounter Visit Diagnoses Diagnosis Normal in third trimester- Primary Multigravida of advanced maternal age in third trimester Rh negative status during in third trimester Maternal asthma complicating Other current maternal conditions classifiable elsewhere, complicating , childbirth, or the puerperium, unspecified as to episode of care documented in this encounter Advance Directives Latest Code Status on File Code Status Date Activated Date Inactivated Comments Full Code 10/04/2019 12:16 PM 10/04/2019 6:39 PM This order reflects the patients wishes and were consensually agreed upon. Care Teams Shipping Clerk Crating Relationship Specialty Start Date End Date Shelby Hector MD [address] [place] [facility] [place] [address] PCP - General Family Medicine 06/14/22 documented as of this encounter
--- OUTSIDE RECORDS SUMMARY | 2023-09-21 23:42 | External Medical Summary ---
Author Name Unknown Address Unknown Organization [id number]:[facility] - [address] [place] [address] Laboratory Report Ordering Provider Test Date Status MAGGIEJENNIFER KRAMER 09/13/2023 08:36:37 Final Observation Date Value Abnormality Reference (Units ) Status SYNC LEUKOCYTES IN BLOOD BY AUTOMATED COUNT 09/13/2023 08:36:37 8.69 4.00-10.80 (K/uL) Final Segs 09/13/2023 08:36:37 61.9 40.0-75.0 (%) Final Lymphs % 09/13/2023 08:36:37 29.7 18.0-42.0 (%) Final Monos 09/13/2023 08:36:37 6.8 1.0-11.0 (%) Final Eosinophils 09/13/2023 08:36:37 0.5 0.0-6.0 (%) Final Basos 09/13/2023 08:36:37 0.3 0.0-2.0 (%) Final Immature Granulocyte, Percent 09/13/2023 08:36:37 0.8 0.0-2.0 (%) Final Absolute Segs 09/13/2023 08:36:37 5.38 1.80-7.70 (K/uL) Final Lymphs, absolute 09/13/2023 08:36:37 2.58 1.00-4.80 (K/ul) Final Monos, Abs 09/13/2023 08:36:37 0.59 0.00-1.10 (K/uL) Final Eos, Abs 09/13/2023 08:36:37 0.04 0.00-0.70 (K/uL) Final Basos, Abs 09/13/2023 08:36:37 0.03 0.00-0.20 (K/uL) Final Immature Granulocytes, Number 09/13/2023 08:36:37 0.07 0.00-0.20 (K/uL) Final Performing Location [facility] - [address] [facility] [address]
--- OUTSIDE RECORDS SUMMARY | 2023-09-21 23:42 | External Medical Summary ---
Author Name Unknown Address Unknown Organization [id number]:[facility] - [address] [place] [address] Laboratory Report Ordering Provider Test Date Status MAGGIEJENNIFER KRAMER 09/13/2023 08:36:37 Final Observation Date Value Abnormality Reference (Units ) Status Retic, % (auto) 09/13/2023 08:36:37 2.74 Above high normal 0.80-1.90 (%) Final Reticulocytes, Absolute 09/13/2023 08:36:37 116.5 Above high normal 31.3-100.1 (K/uL) Final Reticulocyte fraction, immature 09/13/2023 08:36:37 26.1 Above high normal 2.5-20.6 (%) Final Reticulocyte HGB 09/13/2023 08:36:37 34.4 29.7-37.4 (pg) Final Performing Location [facility] - [address] [place] [address]
--- OUTSIDE RECORDS SUMMARY | 2023-09-21 23:42 | External Medical Summary ---
Author Name Unknown Address Unknown Organization [id number]:[facility] [place] [address] [place] [address] Laboratory Report Ordering Provider Test Date Status JENNIFER SERRANO 09/13/2023 08:36:37 Final Observation Date Value Abnormality Reference (Units ) Status Vitamin B12 09/13/2023 08:36:37 [phone] (pg/mL) Final Performing Location [facility] - [address] [place] [address]
--- OUTSIDE RECORDS SUMMARY | 2023-09-21 23:42 | External Medical Summary | Summary of Care ---
Author Name Unknown Organization [facility] Address [address] [facility] [place] [address] Phone [phone] Care Team Providers Care Human Resource Statistician Name Role Phone Shelby Hector MD Primary Care Provid er Reason for Visit * Reason Comments Outpatient Testing Encounter Details Date Type Department Care Team (Late st Contact Info) Description 09/13/2023 8:10 AM EDT Laboratory Laboratory, [facility] [address] [place] [phone] [facility] [address] [place] [address] Iron deficiency anemia, unspecified iron deficiency anemia type Allergies Active Allergy Reactions Criticality Noted Date Comments Erythromycin Base 06/04/2002 rash Lactose Other (Please comment) High 08/04/2015 Dietary. Lactose intolerant, Severe G.I. Intolerance. Penicillins 05/18/1999 "As a child, unsure of reaction." Chlorpheniramine-Phenyl ephrine Rash Low 10/29/2010 documented as of this encounter (statuses as of 09/13/2023) Medications Medication Sig Dispensed Refills Start Date [...] as of this encounter (statuses as of 09/13/2023) Active Problems Problem Noted Date Diagnosed Date [...] as of this encounter (statuses as of 09/13/2023) Resolved Problems Problem Noted Date Diagnosed Date Resolved Date Pilonidal cyst 08/17/2010 09/26/2016 CELLULITIS OF BUTTOCK, RIGHT UPPER 08/17/2010 07/15/2016 STREP SORE THROAT 06/04/2002 07/15/2016 ACUTE URI NOS 06/04/2002 07/15/2016 documented as of this encounter (statuses as of 09/13/2023) Immunizations Name Administration Dates Next Due PPD [...] money to get more. Never true 08/15/2023 [place] Depression Scale Answer Date Recorded [place] Depression Scale Total 4 08/15/2023 The thought [...] on file documented as of this encounter Plan of Treatment Upcoming Encounters Date Type Department Care Team (Late st Contact Info) Description 09/14/2023 9:30 AM EDT Pharmacy Pharmacy, [place] [address] [place] [address] [facility], [place] [address] [place] [address] 09/22/2023 8:45 AM EDT Office Visit Gynecology/Obstetrics [facility] [address] [place] [address] Nehal Mendoza CRNP [address] [place] [address] Pending Results Name Type Priority Associated Diagnoses Date /Time CBC WITH WBC DIFFERENTIAL Lab Routine Iron deficiency anemia, unspecified iron deficiency anemia type 09/13/2023 8:36 AM EDT IRON SCREEN, INCLUDING TIBC Lab Routine Iron deficiency anemia, unspecified iron deficiency anemia type 09/13/2023 8:36 AM EDT FERRITIN Lab Routine Iron deficiency anemia, unspecified iron deficiency anemia type 09/13/2023 8:36 AM EDT RETICULOCYTE PANEL Lab Routine Iron deficiency anemia, unspecified iron deficiency anemia type 09/13/2023 8:36 AM EDT FOLIC ACID Lab Routine Iron deficiency anemia, unspecified iron deficiency anemia type 09/13/2023 8:36 AM EDT VITAMIN B12 Lab Routine Iron deficiency anemia, unspecified iron deficiency anemia type 09/13/2023 8:36 AM EDT CBC Lab Routine Iron deficiency anemia, unspecified iron deficiency anemia type 09/13/2023 8:36 AM EDT DIFFERENTIAL, AUTOMATED Lab Routine Iron deficiency anemia, unspecified iron deficiency anemia type 09/13/2023 8:36 AM EDT Health Maintenance Due Date Last [...] Iron deficiency anemia, unspecified iron deficiency anemia type documented in this encounter Advance Directives * Full Code (Latest Code Status on File) Date Activated Date Inactivated Comments 10/04/2019 12:16 PM 10/04/2019 6:39 PM This order reflects the patients wishes and were consensually agreed upon. Care Teams Human Resource Statistician Relationship Specialty Start Date End Date Shelby Hector MD [address] [place] [address] PCP - General Family Medicine 06/14/22 documented as of this encounter
--- OUTSIDE RECORDS SUMMARY | 2023-09-21 23:42 | External Medical Summary ---
Author Name Unknown Address Unknown Organization [id number]:[facility] [place] - [address] [place] [address] Laboratory Report Ordering Provider Test Date Status ELBA VAZQUEZ 09/01/2023 08:49:17 Final Observation Date Value Abnormality Reference (Units ) Status Streptococcus agalactiae DNA [Presence] in Specimen by CHERYL with probe detection 09/01/2023 08:49:17 Negative Negative Final No Group B Streptococcus det ected by culture-enhanced PCR (amplified probe).
The collection of vaginal/rectal swab specimen combinations (FDA approved specimen type) is optimal for the detection of Group B Streptococcus. Single source collection (vaginal only or rectal only) or alternate specimen sources may lead to false negative results. Performing Location [facility] [place] - [address] [place] [address]
--- OUTSIDE RECORDS SUMMARY | 2023-09-21 23:42 | External Medical Summary | Summary of Care ---
Author Name Unknown Organization [facility] Address [address] [place] [address] Phone [phone] Care Team Providers Care Coding Analyst Name Role Phone Shelby Hector MD Primary Care Provid er Reason for Visit * Reason Comments Infusion Venofer 04/26 Encounter Details Date Type Department Care Team (Latest Contact Info) Description 08/03/2023 1:00 PM EDT Hem/Onc Treatment Hematology/Oncology Treatment, [place] [address] [place] [address] [place], Chair 6 Hem Onc Scenery [address] [place] [address] Iron deficiency anemia, unspecified iron deficiency anemia type* Allergies Active Allergy Reactions Criticality Noted Date Comments Erythromycin Base 06/04/2002 rash Lactose Other (Please comment) High 08/04/2015 Dietary. Lactose intolerant, Severe G.I. Intolerance. Penicillins 05/18/1999 "As a child, unsure of reaction." Chlorpheniramine-Phenyl ephrine Rash Low 10/29/2010 documented as of this encounter (statuses as of 09/05/2023) Medications Medication Sig Dispensed Refills Start Date End Date Status Vitamin 27-0.8 MG Oral Tablet Take by mouth daily . 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 18 g 3 02/07/2022 Active Clindamycin Phos-Benzoyl Perox 1-5 % External GelIndications:Cyst ic acne Apply topically to affected area 2 times a day. To affected area (after washing and drying area). 60 g 11 09/23/2022 Active Omeprazole 20 MG Oral Capsule Delayed Release (PriLOSEC) Take 1 Capsule by mouth in the morning. 0 Active Iron-Vitamin C 65-125 MG Oral Tablet (Vitron C) Take 1 Tablet by mouth in the morning. 90 Tablet 1 06/23/2023 Active Mupirocin 2 % External Ointment (Bactroban)Indicati ons:Angular cheilitis Apply topically to affected area 3 times a day for 14 days. Apply to affected area. 22 g 1 08/01/2023 08/15/2023 documented as of this encounter (statuses as of 09/05/2023) Active Problems Problem Noted Date Diagnosed Date Iron deficiency anemia 07/25/2023 Anxiety 03/01/2023 Irritable bowel syndrome 03/01/2023 Normal 03/01/2023 AMA (advanced maternal age) multigravida 35+ 11/2022 Rh negative status during 03/01/2023 Maternal asthma complicating Genetic testing 11/07/2022 Overview: Chromosome analysis/karyotype completed [...] as of this encounter (statuses as of 09/05/2023) Resolved Problems Problem Noted Date Diagnosed Date Resolved Date Pilonidal cyst 08/17/2010 09/26/2016 CELLULITIS OF BUTTOCK, RIGHT UPPER 08/17/2010 07/15/2016 STREP SORE THROAT 06/04/2002 07/15/2016 ACUTE URI NOS 06/04/2002 07/15/2016 documented as of this encounter (statuses as of 09/05/2023) Immunizations Name Administration Dates Next Due PPD [...] e alcohol) rare PHQ-2 Answer Date Recorded PHQ-2 Score 0 10/30/2018 Hunger Vital Sign Answer Date Recorded Worried About Running Out of Food in the Last Ye ar Never true 10/30/2018 Ran Out of Food in the Last Year Never true 10/30/2018 Stat[place] Depression Scale Answer Date Recorded [place] Depression Scale Total 4 07/06/2023 The thought of harming myself has occurred to me . Never 07/06/2023 Estimated Date of Delivery Comme nts Yes [...] Sign Reading Time Taken Comments Blood Pressure 122/74 08/03/2023 1:10 PM EDT Pulse 130 08/03/2023 1:10 PM EDT Temperature 37 C (98.6 F) 08/03/2023 1:10 PM EDT Respiratory Rate 18 08/03/2023 1:10 PM EDT Oxygen Saturation 97% 08/03/2023 1:10 PM EDT Inhaled Oxygen Concentration - - Weight - - Height - - Body Mass Index - - documented in this encounter Nursing Notes * Karis Stephens LPN - 08/03/2023 3:25 PM EDT 1310: Chair 1. Pt arrived for Venofer 04/26 infusion. PIV in RFA. Pt tolerated well. VSS. at side. No complaints at this time. 1455: Pt tolerated Venofer infusion well. PIV removed intact. Pt to return in one week. Discharged in stable condition. documented in this encounter Plan of Treatment Upcoming Encounters Date Type Department Care Team (Late st Contact Info) Description 09/13/2023 8:10 AM EDT Laboratory Laboratory, [facility] [address] [address] [facility] [address] [place] [address] 09/13/2023 8:45 AM EDT [facility] [address] [address] Reyes Bashir MD [address] [place] [address] 09/14/2023 9:30 AM EDT Pharmacy Pharmacy, [place] [address] [place] [facility] [place] [address] Clinic, [facility] [address] [place] [facility] [place] [address] 09/22/2023 8:45 AM EDT Office Visit Gynecology/Obstetrics [facility] [address] [place] [address] Nehal Mendoza CRNP [address] [place] [address] Health Maintenance Due Date Last Done Comments Pneumococcal Vaccine: Pediatrics (0 to 5 Years) and At-Risk Patients (6 to 64 Years) (1 of 2 - PCV) 02/04/1994 COVID-19 Vaccine (1 - season) 2022 Influenza Vaccine (FLU shot) [...] anemia type- Primary documented in this encounter Administered Medications Inactive Administered Medications - up to 3 most recent administrations Medication Order MAR Action Action Date Dose Rate Site Iron Sucrose (Venofer) 300 mg in NSS 250 mL ivpb 300 mg, IV Piggyback, ONCE, 1 dose, On Shaina 08/03/23 at 1500, Administer over 90 Minutes Start Infusion 08/03/2023 1:15 PM EDT 300 mg 166.67 mL/hr NSS infusion 500 mL, Intravenous, at 50 mL/hr, CONTINUOUS, Starting on Shaina 08/03/23 at 1430, Until Shaina 08/03/23 at 1931 Start Infusion 08/03/2023 1:15 PM EDT 500 mL 50 mL/hr documented in this encounter Advance Directives Latest Code Status on File Code Status Date Activated Date Inactivated Comments Full Code 10/04/2019 12:16 PM 10/04/2019 6:39 PM This order reflects the patients wishes and were consensually agreed upon. Care Teams Coding Analyst Relationship Specialty Start Date End Date Shelby Hector MD [address] [facility] [place] [address] PCP - General Family Medicine 06/14/22 documented as of this encounter
--- OUTSIDE RECORDS SUMMARY | 2023-09-21 23:42 | External Medical Summary ---
Author Name Unknown Address Unknown Organization [id number]:LAB[facility]ATORY [facility] - [address] [place] [address] Laboratory Report Ordering Provider Test Date Status JENNIFER SERRANO 09/13/2023 08:36:37 Final Observation Date Value Abnormality Reference (Units ) Status WBC, Total 09/13/2023 08:36:37 8.69 4.00-10.80 (K/uL) Final RBC 09/13/2023 08:36:37 4.25 3.85-5.15 (M/uL) Final Hemoglobin 09/13/2023 08:36:37 13.2 12.0-15.3 (g/dL) Final HCT 09/13/2023 08:36:37 40.4 36.0-45.2 (%) Final MCV 09/13/2023 08:36:37 95.1 81.5-97.5 (fL) Final MCH 09/13/2023 08:36:37 31.1 27.0-34.0 (pg) Final MCHC 09/13/2023 08:36:37 32.7 32.0-36.0 (g/dL) Final RDW 09/13/2023 08:36:37 15.2 11.5-15.5 (%) Final Platelets 09/13/2023 08:36:37 195 140-400 (K/uL) Final MPV 09/13/2023 08:36:37 11.5 6.6-11.1 (fL) Final Nucleated erythrocytes/100 leukocytes [Ratio] in Blood by Automated count 09/13/2023 08:36:37 0 <=0 (/100 WBCs) Final Performing Location [facility] - [address] [place] [address]
--- OUTSIDE RECORDS SUMMARY | 2023-09-21 23:42 | External Medical Summary | Summary of Care ---
Author Name Unknown Organization [facility] Address [address] [facility] [place] [address] Phone [phone] Care Team Providers Care Tool Maintenance Technician Name Role Phone Shelby Hector MD Primary Care Provid er Reason for Visit * Reason Comments Return Visit Encounter Details Date Type Department Care Team (Late st Contact Info) Description 09/13/2023 8:45 AM EDT Office Visit Gynecology/Obstetric s Zonia Dixon [address] [place] [address] Reyes Bashir MD [address] [place] [address] Normal in third trimester*; Multigravida of advanced [...] money to get more. Never true 08/15/2023 Valera Depression Scale Answer Date Recorded Valera Depression Scale Total 4 08/15/2023 The thought [...] Sign Reading Time Taken Comments Blood Pressure 118/76 09/13/2023 8:43 AM EDT Pulse - - Temperature - - Respiratory Rate - - Oxygen Saturation - - Inhaled Oxygen Concentration - - Weight 75.8 kg (167 lb) 09/13/2023 8:43 AM EDT Height 160 cm (5' 2.99") 09/13/2023 8:43 AM EDT Body Mass Index 29.59 09/13/2023 8:43 AM EDT documented in this encounter Progress Notes * Reyes Bashir MD - 09/13/2023 9:06 AM EDT Pt doing well No complaint Discussed labor and meds RTC 1 weeks documented in this encounter Nursing Notes * Karen Fuller LPN - 09/13/2023 8:49 AM EDT 38w2d BL swelling. Would like to wait until next week to discuss scheduling IOL. documented in this encounter Plan of Treatment Upcoming Encounters Date Type Department Care Team (Late st Contact Info) Description 09/14/2023 9:30 AM EDT Pharmacy Pharmacy, [place] [address] [place] [address] Clinic, [facility] [address] [place] [address] 09/22/2023 8:45 AM EDT Office Visit Gynecology/Obstetrics Josephyong [place] [address] [place] [address] Nehal Mendoza CRNP [address] [place] [address] Health Maintenance Due Date Last Done Comments Pneumococcal Vaccine: Pediatrics (0 to 5 Years) and At-Risk Patients (6 to 64 Years) (1 of 2 - PCV) 02/04/1994 COVID-19 Vaccine (1 - 2022-24 season) 2022 Influenza Vaccine (FLU shot) (Season Ended) 2023 07/10/2017 (Declined), 01/27/2016, 01/16/2015, Additional history exists Depression Screening 08/14/2024 08/15/2023 Pap Smear 03/01/2026 03/01/2023, /08/2017, 10/07/2016, Additional history exists Diabetes Screening 07/11/2026 [...] care documented in this encounter Advance Directives * Full Code (Latest Code Status on File) Date Activated Date Inactivated Comments 10/04/2019 12:16 PM 10/04/2019 6:39 PM This order reflects the patients wishes and were consensually agreed upon. Care Teams Tool Maintenance Technician Relationship Specialty Start Date End Date Shelby Hector MD [address] [facility] [place] [place] [address] PCP - General Family Medicine 06/14/22 documented as of this encounter
--- OUTSIDE RECORDS SUMMARY | 2023-09-21 23:42 | External Medical Summary ---
Author Name Unknown Address Unknown Organization K01:[facility] - [address] [place] [address] Laboratory Report Ordering Provider Test Date Status JENNIFER SERRANO 09/13/2023 08:36:37 Final Observation Date Value Abnormality Reference (Units ) Status Ferritin 09/13/2023 08:36:37 165 Above high normal 13 -150 (ng/mL) Final Performing Location [facility] - [address] [place] [address]
--- OUTSIDE RECORDS SUMMARY | 2023-09-21 23:42 | External Medical Summary | Summary of Care ---
Author Name Unknown Organization [facility] Address [address] [place] [facility] [place] [address] Phone [phone] Care Team Providers Care Docking Pilot Name Role Phone Shelby Hector MD Primary Care Provid er Reason for Visit * Reason Comments IV Therapy Venofer. Encounter Details Date Type Department Care Team (Latest Contact Info) Description 08/17/2023 1:30 PM EDT Hem/Onc Treatment Hematology/Oncology Treatment, [place] [address] [place] [address] [place], Chair 8 Hem Onc Scene [address] [place] [address] Iron deficiency anemia, unspecified iron deficiency anemia type* Allergies Active Allergy Reactions Criticality Noted Date Comments Erythromycin Base 06/04/2002 rash Lactose Other (Please comment) High 08/04/2015 Dietary. Lactose intolerant, Severe G.I. Intolerance. Penicillins 05/18/1999 "As a child, unsure of reaction." Chlorpheniramine-Phenyl ephrine Rash Low 10/29/2010 documented as of this encounter (statuses as of 09/02/2023) Medications Medication Sig Dispensed Refills Start Date [...] as of this encounter (statuses as of 09/02/2023) Active Problems Problem Noted Date Diagnosed Date [...] as of this encounter (statuses as of 09/02/2023) Resolved Problems Problem Noted Date Diagnosed Date Resolved Date Pilonidal cyst 08/17/2010 09/26/2016 CELLULITIS OF BUTTOCK, RIGHT UPPER 08/17/2010 07/15/2016 STREP SORE THROAT 06/04/2002 07/15/2016 ACUTE URI NOS 06/04/2002 07/15/2016 documented as of this encounter (statuses as of 09/02/2023) Immunizations Name Administration Dates Next Due PPD [...] money to get more. Never true 08/15/2023 Stand[place] Depression Scale Answer Date Recorded Stand[place] Depression Scale Total 4 08/15/2023 The thought [...] Sign Reading Time Taken Comments Blood Pressure 126/79 08/17/2023 1:30 PM EDT Pulse 110 08/17/2023 1:30 PM EDT Temperature 36.5 C (97.7 F) 08/17/2023 1:30 PM ED T Respiratory Rate 18 08/17/2023 1:30 PM EDT Oxygen Saturation 97% 08/17/2023 1:30 PM EDT Inhaled Oxygen Concentration - - Weight - - Height - - Body Mass Index - - documented in this encounter Nursing Notes * Lisa Singletary RN - 08/17/2023 3:33 PM EDT Goals: Patient will remain free from injury. Possible barriers to meeting goals: Fall risk d/t ambulation with IV pole. Stability of the patient: Moderately stable - low risk of patient condition declining or worsening Summary regarding today's goals: Met: Patient remained free of injury. Patient tolerated infusion well. Discharged in stable condition. * Lisa Singletary RN - 08/17/2023 2:04 PM EDT Chair 10. at chairside. Patient arrived for Venofer infusion 06/24 with no acute complaints. PIV established without difficulties. Safety and Risk for Injury Patient will remain free from injury. Ensure appropriate safety devices are available. Provide and maintain safe environment. documented in this encounter Plan of Treatment Upcoming Encounters Date Type Department Care Team (Late st Contact Info) Description 09/05/2023 8:45 AM EDT Office Visit Gynecology/Obstetrics [address] [place] [address] [place], S[place]I [place] [address] [place] [address] 09/13/2023 8:10 AM EDT Laboratory Laboratory, [place]onia Dixon [place] [address] [phone] [address] [place] [address] 09/13/2023 8:45 AM EDT Office Visit Gynecology/Obstetrics Zonia Dixon [address] [facility] [place] [address] Reyes Bashir MD [address] [place] [address] 09/14/2023 9:30 AM EDT Pharmacy Pharmacy, [place] [address] [place] [address] Clinic, [place] [address] [place], [place] [id number] 09/22/2023 8:45 AM EDT Office Visit Gynecology/Obstetrics Zonia Ruggieros [address] [facility] [place] [address] Nehal Mendoza CRNP [address] [place] [address] Health Maintenance Due Date Last Done Comments Pneumococcal Vaccine: Pediatrics (0 to 5 Years) and At-Risk Patients (6 to 64 Years) (1 of 2 - PCV) 02/04/1994 COVID-19 Vaccine ( - 2022- season) 2022 Influenza Vaccine (FLU shot) (Season [...] IV Piggyback, ONCE, 1 dose, On Shaina 08/17/23 at 1530, Administer over 90 Minutes Start Infusion 08/17/2023 1:54 PM EDT 300 mg 193.33 mL/hr NSS infusion 500 mL, Intravenous, at 50 mL/hr, CONTINUOUS, Starting on Shaina 08/17/23 at 1500, Until Shaina 08/17/23 at 1938 Start Infusion 08/17/2023 1:53 PM EDT 500 mL 50 mL/hr documented in this encounter Advance Directives Latest Code Status on File Code Status Date Activated Date Inactivated Comments Full Code 10/04/2019 12:16 PM 10/04/2019 6:39 PM This order reflects the patients wishes and were consensually agreed upon. Care Teams Docking Pilot Relationship Specialty Start Date End Date Shelby Hector MD [address] [place] [address] PCP - General Family Medicine 06/14/22 documented as of this encounter
--- OUTSIDE RECORDS SUMMARY | 2023-09-21 23:42 | External Medical Summary ---
Author Name Unknown Address Unknown Organization K01:[facility] - [address] [place] [address] Laboratory Report Ordering Provider Test Date Status JENNIFER SERRANO 09/13/2023 08:36:37 Final Observation Date Value Abnormality Reference (Units ) Status Folic Acid 09/13/2023 08:36:37 >20.0 >4.5 (ng/ mL) Final Performing Location [facility] - [address] [place] [address]
--- OUTSIDE RECORDS SUMMARY | 2023-09-21 23:42 | External Medical Summary | Summary of Care ---
Author Name Unknown Organization [facility] Address [address] [facility] [place] [address] Phone [phone] Care Team Providers Care Dry Wall Plasterer Name Role Phone Shelby Hector MD Primary Care Provid er Reason for Visit * Reason Comments Return Visit Encounter Details Date Type Department Care Team (Late st Contact Info) Description 09/05/2023 8:45 AM EDT Office Visit Gynecology/Obstetric s Zonia Dixon [address] [place] [address] BackGail pool CRNP [address] [place] [address] Normal in third trimester*; Multigravida of advanced [...] money to get more. Never true 08/15/2023 [place] Depression Scale Answer Date Recorded [place] Depression Scale Total 4 08/15/2023 The thought [...] Sign Reading Time Taken Comments Blood Pressure 116/70 09/05/2023 8:45 AM EDT Pulse - - Temperature - - Respiratory Rate - - Oxygen Saturation - - Inhaled Oxygen Concentration - - Weight 76.6 kg (168 lb 12.8 oz) 09/05/2023 8:45 AM EDT Height - - Body Mass Index 29.91 08/01/2023 3:44 PM EDT documented in this encounter Progress Notes * Gail Peterson CRNP - 09/05/2023 8:57 AM EDT 37w1d Baby moving well - less pronounced but still same quantity. Discussed [facility] and when to call. Still LE edema, does improve w/elevation. BP normal. Reviewed symptoms that warrant medical attention. 1 week return SAVI Peguero documented in this encounter Plan of Treatment Upcoming Encounters Date Type Department Care Team (Late st Contact Info) Description 09/13/2023 8:10 AM EDT [facility] [address] [place] [phone] [place]Mikhail griffith [address] [place] [address] 09/13/2023 8:45 AM EDT [facility] [address] [place] [address] Reyes Bashir MD [address] [place] [address] 09/14/2023 9:30 AM EDT Pharmacy Pharmacy, [place] [address] [place] [address] Clinic, [facility] [address] [place] [address] 09/22/2023 8:45 AM EDT Office Visit Gynecology/Obstetrics [facility] [address] [place] [address] Nehal Mendoza CRNP [address] [place] [address] Health Maintenance Due Date Last Done Comments Pneumococcal Vaccine: Pediatrics (0 to 5 Years) and At-Risk Patients (6 to 64 Years) (1 of 2 - PCV) 02/04/1994 COVID-19 Vaccine (1 - 2022- season) 2022 Influenza Vaccine (FLU [...] and were consensually agreed upon. Care Teams Dry Wall Plasterer Relationship Specialty Start Date End Date Shelby Hector MD [address] [place] [address] PCP - General Family Medicine 06/14/22 documented as of this encounter
--- OUTSIDE RECORDS SUMMARY | 2023-09-21 23:43 | External Medical Summary | Summary of Care ---
Author Name Unknown Organization [facility] Address [address] [place] [address] Phone [phone] Care Team Providers Care Coloring Room Man Name Role Phone Shelby Hector MD Primary Care Provid er Reason for Visit * Reason Comments Follow Up Lip infection Lips w ill split and had swelling and thinks it is infected now Encounter Details Date Type Department Care Team (Late st Contact Info) Description 08/01/2023 3:40 PM EDT Office Visit [place] [address] [place] [address] Shelby Hector MD [address] [place] [address] Angular cheilitis* Allergies Active Allergy Reactions Criticality Noted Date Comments Erythromycin Base 06/04/2002 rash Lactose Other (Please comment) High 08/04/2015 Dietary. Lactose intolerant, Severe G.I. Intolerance. Penicillins 05/18/1999 "As a child, unsure of reaction." Chlorpheniramine-Phenyl ephrine Rash Low 10/29/2010 documented as of this encounter (statuses as of 08/01/2023) Medications Medication Sig Dispensed Refills Start Date End Date Status Vitamin 27-0.8 MG Oral Tablet Take by mouth daily . 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 18 g 3 02/07/2022 Active Clindamycin Phos-Benzoyl Perox 1-5 % External GelIndications:Cysti c acne Apply topically to affected area 2 [...] 06/23/2023 Active Mupirocin 2 % External Ointment (Bactroban)Indicatio ns:Angular cheilitis Apply topically to affected area 3 times a day for 14 days. Apply to affected area. 22 g 1 08/01/2023 08/15/2023 Active documented as of this encounter (statuses as of 08/01/2023) Active Problems Problem Noted Date Diagnosed Date [...] as of this encounter (statuses as of 08/01/2023) Resolved Problems Problem Noted Date Diagnosed Date Resolved Date Pilonidal cyst 08/17/2010 09/26/2016 CELLULITIS OF BUTTOCK, RIGHT UPPER 08/17/2010 07/15/2016 STREP SORE THROAT 06/04/2002 07/15/2016 ACUTE URI NOS 06/04/2002 07/15/2016 documented as of this encounter (statuses as of 08/01/2023) Immunizations Name Administration Dates Next Due PPD [...] Date Smoking Tobacco: Never Smokeless Tobacco: Never Tobacco Cessation:Counseling Given: Not Answered Comments:mom, step dad smokes in house Alcohol Use Standard Drinks/Week Comments Not Currently 0 (1 standard drink = 0.6 oz pur e alcohol) rare PHQ-2 Answer Date Recorded PHQ-2 Score 0 10/30/2018 Hunger Vital Sign Answer Date Recorded Worried About Running Out of Food in the Last Ye ar Never true 10/30/2018 Ran Out of Food in the Last Year Never true 10/30/2018 [place] Depression Scale Answer Date Recorded [place] Depression Scale Total 4 07/06/2023 The thought [...] Sign Reading Time Taken Comments Blood Pressure 116/74 08/01/2023 3:44 PM EDT Pulse 103 08/01/2023 3:44 PM EDT Temperature 36.7 C (98 F) 08/01/2023 3:44 PM EDT Respiratory Rate 17 08/01/2023 3:44 PM EDT Oxygen Saturation 98% 08/01/2023 3:44 PM EDT Inhaled Oxygen Concentration - - Weight 69.9 kg (154 lb) 08/01/2023 3:44 PM EDT Height 160 cm (5' 2.99") 08/01/2023 3:44 PM EDT Body Mass Index 27.29 08/01/2023 3:44 PM EDT documented in this encounter Progress Notes * Shelby Hector MD - 08/01/2023 3:53 PM EDT ASSESSMENT / PLAN: Rola Riley is a 33 year old female Angular cheilitis (Primary) - Mupirocin 2 % External Ointment (Bactroban); Apply topically to affected area 3 times a day for 14 days. Apply to affected area. Reviewed supportive care with barrier cream (aquaphor) If no improvement can add ointment as above If needed, prefers contact by: Ok to leave message on phone: SUBJECTIVE: Nursing Notes: Le Peña LPN 08/01/23 1551 Signed The patient has been properly identified by confirmation of name and date of . Chief Complaint Patient presents with Follow Up Lip infection Lips will split and had swelling and thinks it is infected now HPI: Rola Riley is a 33 year old female. Here for recheck. Area of redness and localized swelling on right angle of lip x several days Reviewed sources 1- Patient Active Problem List Diagnosis Code EXTRINSIC ASTHMA, -EXERCISE INDUCED J45.909 Idiopathic scoliosis M41.20 Genetic testing Z13.79 Screening for genetic disease carrier status Z13.71 Anxiety F41.9 Irritable bowel syndrome K58.9 Normal Z34.90 AMA (advanced maternal age) multigravida 35+ O09.529 Rh negative status during O26.899, Z67.91 Maternal asthma complicating O99.519, J45.909 Iron deficiency anemia D50.9 Current Outpatient Medications Medication Sig Dispense Refill Vitamin 27-0.8 MG Oral Tablet Take by mouth daily . Albuterol Sulfate HFA 108 (90 Base) MCG/ACT Inhalation Aerosol Solution INHALE 2 PUFFS BY MOUTH 4 TIMES A DAY. 18 g 3 Albuterol Sulfate HFA 108 (90 Base) MCG/ACT Inhalation Aerosol Solution Inhale by mouth 2 Puffs every 4 hours as needed (wheeze or cough or sob). 18 g 3 Clindamycin Phos-Benzoyl Perox 1-5 % External Gel Apply topically to affected area 2 times a day. To affected area (after washing and drying area). 60 g 11 Omeprazole 20 MG Oral Capsule Delayed Release (PriLOSEC) Take 1 Capsule by mouth in the morning. Iron-Vitamin C 65-125 MG Oral Tablet (Vitron C) Take 1 Tablet by mouth in the morning. 90 Tablet 1 Mupirocin 2 % External Ointment (Bactroban) Apply topically to affected area 3 times a day for 14 days. Apply to affected area. 22 g 1 No current facility-administered medications for this visit. OBJECTIVE: BP 116/74 | Pulse 103 | Temp 36.7 C (98 F) | Resp 17 | Ht 1.6 m (5' 2.99") | Wt 69.9 kg (154 lb) | LMP 12/19/2022 | SpO2 98% | BMI 27.29 kg/m | BSA 1.76 m Vitals reviewed and is normotensive / afebrile / and not tachycardic General: No acute distress. Neuro: Alert Pleasant & interactive. Respiratory: Good inspiratory effort, no labored breathing. HEENT: Conjunctivae appear clear. No swelling noted face or lips. Skin: +angular cheilitis on R raffi border Psych: Normal affect. Fluent speech. Shelby Hector MD [address] [address] There are no Patient Instructions on file for this visit. documented in this encounter Nursing Notes * Le Peña LPN - 08/01/2023 3:51 PM EDT The patient has been properly identified by confirmation of name and date of . Chief Complaint Patient presents with Follow Up Lip infection Lips will split and had swelling and thinks it is infected now documented in this encounter Plan of Treatment Upcoming Encounters Date Type Department Care Team (Late st Contact Info) Description 08/02/2023 8:45 AM EDT Office Visit Gynecology/Obstetrics [facility] [address] [facility] [place] [address] Yarely Goldstein, DNP, CNM [address] [facility] [place] [address] 08/03/2023 1:00 PM EDT Hem/Onc Treatment Hematology/Oncology Treatment, [address] [phone] Vero, Chair 6 Hem Onc [address] [place] [address] 08/09/2023 10:00 AM EDT Pharmacy Pharmacy, [place] [address] [place] [address] Clinic, [facility] [address] [place] [address] 08/09/2023 3:00 PM EDT Office Visit Cardiology, [facility] [address] [facility] [place] [address] Candy Cordova PA-C [address] [facility] [place] [address] 08/10/2023 1:00 PM EDT Hem/Onc Treatment [address] [phone] Vero, Chair 3 Hem Onc [address] [place] [address] 08/15/2023 8:45 AM EDT Office Visit Gynecology/Obstetrics [facility] [address] [place] [address] BackerGail CRNP [address] [place] [address] 08/17/2023 1:30 PM EDT Hem/Onc Treatment Hematology/Oncology Treatment, [place] [address] [facility] [address] [place] [phone] Vero, Chair 8 Hem Onc [place] [address] [place] [address] 09/01/2023 8:30 AM EDT Office Visit Gynecology/Obstetrics [facility] [address] [place] [address] BackGail pool CRNP [address] [place] [address] Health Maintenance Due Date Last Done Comments Pneumococcal Vaccine: Pediatrics (0 to 5 Years) and At-Risk Patients (6 to 64 Years) (1 of 2 - PCV) 02/04/1994 Depression Screening 10/31/2019 10/30/2018 COVID-19 Vaccine ( - 2022- season) 2022 Influenza Vaccine (FLU shot) (Season Ended) 2023 07/10/2017 (Declined), 01/27/2016, 01/16/2015, Additional history exists Pap Smear 03/01/2026 03/01/2023, 09/23, 10/07/2016, Additional [...] as of this encounter Visit Diagnoses Diagnosis Angular cheilitis- Primary Diseases of lips documented in this encounter Advance Directives Latest Code Status on File Code Status Date Activated Date Inactivated Comments Full Code 10/04/2019 12:16 PM 10/04/2019 6:39 PM This order reflects the patients wishes and were consensually agreed upon. Care Teams Coloring Room Man Relationship Specialty Start Date End Date Shelby Hector MD [address] [place] [address] PCP - General Family Medicine 06/14/22 documented as of this encounter
--- OUTSIDE RECORDS SUMMARY | 2023-09-21 23:43 | External Medical Summary ---
Author Name Unknown Address Unknown Organization K01:LABORATORY [facility] - [address] [place] [address] Laboratory Report Ordering Provider Test Date Status ELBA VAZQUEZ 07/20/2023 12:15:45 Final Observation Date Value Abnormality Reference (Units ) Status Iron 07/20/2023 12:15:45 82 33-151 (ug /dL) Final Iron-binding capacity 07/20/2023 12:15:45 395 250-425 (ug/dL) Final Transferrin Sat % 07/20/2023 12:15:45 21 15 -55 (%) Final Performing Location LABORATORY C - [address] [place] [address]
--- OUTSIDE RECORDS SUMMARY | 2023-09-21 23:43 | External Medical Summary | Summary of Care ---
Author Name Unknown Organization [facility] Address [address] [facility] [place] [address] Phone [phone] Care Team Providers Care Deputy Director Of Finance Name Role Phone Shelby Hector MD Primary Care Provid er Reason for Visit * Reason Comments IV Therapy Venofer. Encounter Details Date Type Department Care Team (Latest Contact Info) Description 08/17/2023 1:30 PM EDT Hem/Onc Treatment Hematology/Oncology Treatment, [place] [address] [place] [address] Vero, Chair 8 Hem Onc [place] [address] [place] [address] Iron deficiency anemia, unspecified iron deficiency anemia type* Allergies Active Allergy Reactions Criticality Noted Date Comments Erythromycin Base 06/04/2002 rash Lactose Other (Please comment) High 08/04/2015 Dietary. Lactose intolerant, Severe G.I. Intolerance. Penicillins 05/18/1999 "As a child, unsure of reaction." Chlorpheniramine-Phenyl ephrine Rash Low 10/29/2010 documented as of this encounter (statuses as of 08/17/2023) Medications Medication Sig Dispensed Refills Start Date [...] as of this encounter (statuses as of 08/17/2023) Active Problems Problem Noted Date Diagnosed Date [...] as of this encounter (statuses as of 08/17/2023) Resolved Problems Problem Noted Date Diagnosed Date Resolved Date Pilonidal cyst 08/17/2010 09/26/2016 CELLULITIS OF BUTTOCK, RIGHT UPPER 08/17/2010 07/15/2016 STREP SORE THROAT 06/04/2002 07/15/2016 ACUTE URI NOS 06/04/2002 07/15/2016 documented as of this encounter (statuses as of 08/17/2023) Immunizations Name Administration Dates Next Due PPD [...] money to get more. Never true 08/15/2023 [place] Depression Scale Answer Date Recorded [place] Depression Scale Total 4 08/15/2023 The thought [...] Care Team (Late st Contact Info) Description 08/22/2023 2:30 PM EDT Pharmacy Pharmacy, [address] [address] Clinic, [place] [address] [place] [address] 09/01/2023 8:30 AM EDT Office Visit Gynecology/Obstetrics [facility] [address] [place] [address] Gail Peterson CRNP [address] [place] [address] 09/05/2023 8:45 AM EDT Office Visit Gynecology/Obstetrics [facility] [address] [place] [address] Gail Peterson CRNP [address] [place] [address] 09/13/2023 8:45 AM EDT Office Visit Gynecology/Obstetrics [facility] [address] [place] [address] Reyes Bashir MD [address] [place] [address] 09/22/2023 8:45 AM EDT Office Visit Gynecology/Obstetrics [facility] [address] [place] [address] Nehal Mendoza CRNP [address] [place] [address] Health Maintenance Due Date Last Done Comments [...] Primary documented in this encounter Administered Medications Active Administered Medications - up to 3 most recent administrations Medication Order MAR Action Action Date Dose Rate Site diphenhydrAMINE (Benadryl) inj 50 mg 50 mg, IV Push, ONCE PRN Other, Hypersensitivity Reaction, Starting on Mon08/17/23 at 1353, Until Mon08/18/23 at 1352, For 24 hours EPINEPHrine 1 MG/ML inj 0.3 mg 0.3 mg, Intramuscular, ONCE PRN Other, Hypersensitivity Reaction or Anaphylaxis, Starting on Mon08/17/23 at 1353, Until Mon08/18/23 at 1352, For 24 hours hEParin 100 UNIT/ML Lock Flush inj 500 Units 500 Units (5 mL), IV Lock, PRN Other, IV Flush, Starting on Mon08/17/23 at 1353, Until Mon08/18/23 at 1352, For 24 hours, Do not flush if lock, PICC, or central line not in place; IV infusing or unable to flush. Hydrocortisone Sod Suc (PF) (Solu-Cortef) inj 100 mg 100 mg, IV Push, ONCE PRN Other, Hypersensitivity Reaction, Starting on Mon08/17/23 at 1353, Until Mon08/18/23 at 1352, For 24 hours NSS infusion 500 mL, Intravenous, at 50 mL/hr, CONTINUOUS, Starting on Mon08/17/23 at 1500, Until Mon08/18/23 at 0059 Start Infusion 08/17/2023 1:53 PM EDT 500 mL 50 mL/hr oxygen GAS Inhalation, OXYGEN, First dose on Mon08/17/23 at 1600, Until Discontinued, Device/Managed by: Low Flow Device, Goal SPO2 (%): 91-95, Starting Device: Nasal Cannula, Initial Flow Rate (LPM): 2, Lowest Support: Nasal Cannula: Flow 0-6 LPM. Titrate up/down by 1 LPM., Higher Support: Non-Rebreather (NRB) Mask: Minimum of 10 LPM. Titrate to maintain bag inflation., Titration Interval: Q2 minutes and as needed., Notify Provider: For sudden DECREASE in resting SPO2 to less than 85% and when escalating delivery device., Wean patient off Oxygen when the oxygen saturation is greater than or equal to 93% sodium chloride 0.9 % flush central line 10 mL 10 mL, IV Push, PRN Other, IV Flush, Starting on Shaina 08/17/23 at 1353, Until Mon08/18/23 at 1352, For 24 hours, Do not flush if lock, PICC, or central line not in place; IV infusing or unable to flush. Inactive Administered Medications - up to 3 most recent administrations Medication Order MAR Action Action Date Dose Rate Site Iron Sucrose (Venofer) 300 mg in NSS 250 mL ivpb 300 mg, IV Piggyback, ONCE, 1 dose, On Shaina 08/17/23 at 1530, Administer over 90 Minutes Start Infusion 08/17/2023 1:54 PM EDT 300 mg 193.33 mL/hr documented in this encounter Advance Directives Latest Code Status on File Code Status Date Activated Date Inactivated Comments Full Code 10/04/2019 12:16 PM 10/04/2019 6:39 PM This order reflects the patients wishes and were consensually agreed upon. Care Teams Deputy Director Of Finance Relationship Specialty Start Date End Date Shelby Hector MD [address] [place] [address] PCP - General Family Medicine 06/14/22 documented as of this encounter
--- OUTSIDE RECORDS SUMMARY | 2023-09-21 23:43 | External Medical Summary | Summary of Care ---
Author Name Unknown Organization [facility] Address [address] [facility] [place] [address] Phone [phone] Care Team Providers Care Machine Worker Name Role Phone Shelby Hector MD Primary Care Provid er Encounter Details Date Type Department Care Team (Late st Contact Info) Description 07/25/2023 Orders Only Gynecology/Obstetrics [facility] [address] [place] [address] Gial Peterson CRNP [address] [place] [address] Iron deficiency anemia, unspecified iron deficiency anemia type* Allergies Active Allergy Reactions Criticality Noted Date Comments Erythromycin Base 06/04/2002 rash Lactose Other (Please comment) High 08/04/2015 Dietary. Lactose intolerant, Severe G.I. Intolerance. Penicillins 05/18/1999 "As a child, unsure of reaction." Chlorpheniramine-Phenyl ephrine Rash Low 10/29/2010 documented as of this encounter (statuses as of 07/25/2023) Medications Medication Sig Dispensed Refills Start Date [...] as of this encounter (statuses as of 07/25/2023) Active Problems Problem Noted Date Diagnosed Date [...] as of this encounter (statuses as of 07/25/2023) Resolved Problems Problem Noted Date Diagnosed Date Resolved Date Pilonidal cyst 08/17/2010 09/26/2016 CELLULITIS OF BUTTOCK, RIGHT UPPER 08/17/2010 07/15/2016 STREP SORE THROAT 06/04/2002 07/15/2016 ACUTE URI NOS 06/04/2002 07/15/2016 documented as of this encounter (statuses as of 07/25/2023) Immunizations Name Administration Dates Next Due PPD [...] in the Last Year Never true 10/30/2018 [place] Depression Scale Answer Date Recorded [place] Depression Scale Total 4 07/06/2023 The thought [...] Care Team (Late st Contact Info) Description 07/25/2023 4:00 PM EDT Pharmacy Pharmacy, [place] [address] [place] [place] [address] Clinic, [place] [address] [place] [address] Iron deficiency anemia, unspecified iron deficiency anemia type* 08/02/2023 8:45 AM EDT Office Visit Gynecology/Obstetric s [facility] [address] [place] [address] Yarely Goldstein, DNP, CNM [address] [place] [address] 08/09/2023 10:00 AM EDT Pharmacy Pharmacy, [address] [id number] Clinic, [place] [address] [place] [address] 08/09/2023 3:00 PM EDT Office Visit Cardiology, [facility] [address] [place] [address] Candy Cordova PA-C [address] [place] [address] 08/15/2023 8:45 AM EDT Office Visit Gynecology/Obstetric s [facility] [address] [place] [address] Gail Peterson CRNP [address] [place] [address] 09/01/2023 8:30 AM EDT Office Visit Gynecology/Obstetric [facility] [address] [place] [address] Gail Peterson CRNP [address] [place] [address] Health Maintenance Due Date Last Done Comments Pneumococcal Vaccine: Pediatrics (0 to 5 Years) and At-Risk Patients (6 to 64 Years) (1 of 2 - PCV) 02/04/1994 Depression Screening 10/31/2019 10/30/2018 COVID-19 Vaccine (1 - 2022-24 season) 2022 Influenza Vaccine (FLU shot) (Season Ended) 2023 07/10/2017 (Declined), 01/27/2016, 01/16/2015, Additional history exists Pap Smear 03/01/2026 03/01/2023, 06/08/2017, 10/07/2016, Additional [...] anemia, unspecified iron deficiency anemia type- Primary Iron deficiency anemia, unspecified iron deficiency anemia type- Primary documented in this encounter Advance Directives Latest Code Status on File Code Status Date Activated Date Inactivated Comments Full Code 10/04/2019 12:16 PM 10/04/2019 6:39 PM This order reflects the patients wishes and were consensually agreed upon. Care Teams Machine Worker Relationship Specialty Start Date End Date Shelby Hector MD [address] [place] [address] PCP - General Family Medicine 06/14/22 documented as of this encounter
--- OUTSIDE RECORDS SUMMARY | 2023-09-21 23:43 | External Medical Summary | Summary of Care ---
Author Name Unknown Organization [facility] Address [address] [place] [address] Phone [phone] Care Team Providers Care Usability Specialist Name Role Phone Shelby Hector MD Primary Care Provid er Reason for Visit * Reason Comments Infusion Venofer 04/26 Encounter Details Date Type Department Care Team (Latest Contact Info) Description 08/03/2023 1:00 PM EDT Hem/Onc Treatment Hematology/Oncology Treatment, [place] [address] [place] [address] Park, Chair 6 Hem Onc Scen[place] [address] [place] [address] Iron deficiency anemia, unspecified iron deficiency anemia type* Allergies Active Allergy Reactions Criticality Noted Date Comments Erythromycin Base 06/04/2002 rash Lactose Other (Please comment) High 08/04/2015 Dietary. Lactose intolerant, Severe G.I. Intolerance. Penicillins 05/18/1999 "As a child, unsure of reaction." Chlorpheniramine-Phenyl ephrine Rash Low 10/29/2010 documented as of this encounter (statuses as of 08/03/2023) Medications Medication Sig Dispensed Refills Start Date [...] as of this encounter (statuses as of 08/03/2023) Active Problems Problem Noted Date Diagnosed Date [...] as of this encounter (statuses as of 08/03/2023) Resolved Problems Problem Noted Date Diagnosed Date Resolved Date Pilonidal cyst 08/17/2010 09/26/2016 CELLULITIS OF BUTTOCK, RIGHT UPPER 08/17/2010 07/15/2016 STREP SORE THROAT 06/04/2002 07/15/2016 ACUTE URI NOS 06/04/2002 07/15/2016 documented as of this encounter (statuses as of 08/03/2023) Immunizations Name Administration Dates Next Due PPD [...] in the Last Year Never true 10/30/2018 [place] Depression Scale Answer Date Recorded [place] Depression Scale Total 4 07/06/2023 The thought of harming myself has occurred to me . Never 07/06/2023 Estimated Date of Delivery Comme nts Yes 09/25/2023 Based on last me nstrual period of 12/19/2022 Sex and Gender Information Value Date Recorded Sex Assigned at Female 09/25/2022 9:45 PM EDT Gender Identity Female 09/25/2022 9:45 PM EDT Sexual Orientation Straight 10/30/2018 2 :40 PM EDT Job Start Date Occupation Industry [...] Care Team (Late st Contact Info) Description 08/09/2023 10:00 AM EDT Pharmacy Pharmacy, [place] [address] [place] [address] Clinic, [place] [address] [place] [address] 08/09/2023 3:00 PM EDT Office Visit Cardiology, [facility] [address] [facility] [place] [address] Candy Cordova PA-C [address] [facility] [place] [address] 08/10/2023 1:00 PM EDT Hem/Onc Treatment Hematology/Oncology Treatment, [place] [address] [place] [phone] [place], Chair 3 Hem Onc Scenery [address] [place] [address] 08/15/2023 8:45 AM EDT Office Visit Gynecology[facility]stetrics [facility] [place] [address] Gail Peterson CRNP [address] [place] [address] 08/17/2023 1:30 PM EDT Hem/Onc Treatment Hematology/Oncology Treatment, [place] [address] [place] [phone] [place], Chair 8 Hem Onc Scenery [address] [place] [address] 09/01/2023 8:30 AM EDT Office Visit Gynecology/Obstetrics Zonia Dixon [address] [place] [address] Gail Peterson CRNP [address] [place] [address] Health Maintenance Due Date Last Done Comments Pneumococcal Vaccine: Pediatrics (0 to 5 Years) and At-Risk Patients (6 to 64 Years) (1 of 2 - PCV) 02/04/1994 Depression Screening 10/31/2019 10/30/2018 COVID-19 Vaccine ( - season) 2022 Influenza [...] ONCE PRN Other, Hypersensitivity Reaction, Starting on Shaina 08/03/23 at 1315, Until Mon08/04/23 at 1314, For 24 hours EPINEPHrine 1 MG/ML inj 0.3 mg 0.3 mg, Intramuscular, ONCE PRN Other, Hypersensitivity Reaction or Anaphylaxis, Starting on Mon08/03/23 at 1315, Until Mon08/04/23 at 1314, For 24 hours hEParin 100 UNIT/ML Lock Flush inj 500 Units 500 Units (5 mL), IV Lock, PRN Other, IV Flush, Starting on Mon08/03/23 at 1315, Until Mon08/04/23 at 1314, For 24 hours, Do not flush if lock, PICC, or central line not in place; IV infusing or unable to flush. Hydrocortisone Sod Suc (PF) (Solu-Cortef) inj 100 mg 100 mg, IV Push, ONCE PRN Other, Hypersensitivity Reaction, Starting on Mon08/03/23 at 1315, Until Mon08/04/23 at 1314, For 24 hours NSS infusion 500 mL, Intravenous, at 50 mL/hr, CONTINUOUS, Starting on Mon08/03/23 at 1430, Until Mon08/04/23 at 0029 Start Infusion 08/03/2023 1:15 PM EDT 500 mL 50 mL/hr oxygen GAS Inhalation, OXYGEN, First dose on Mon08/03/23 at 1600, Until Discontinued, Device/Managed by: Low [...] PRN Other, IV Flush, Starting on Shaina 08/03/23 at 1315, Until Mon08/04/23 at 1314, For 24 hours, Do not flush if [...] 1:15 PM EDT 300 mg 166.67 mL/hr documented in this encounter Advance Directives Latest Code Status on File Code Status Date Activated Date Inactivated Comments Full Code 10/04/2019 12:16 PM 10/04/2019 6:39 PM This order reflects the patients wishes and were consensually agreed upon. Care Teams Usability Specialist Relationship Specialty Start Date End Date Shelby Hector MD [address] [place] [address] PCP - General Family Medicine 06/14/22 documented as of this encounter
--- OUTSIDE RECORDS SUMMARY | 2023-09-21 23:43 | External Medical Summary | Summary of Care ---
Author Name Unknown Organization [facility] Address [address] [place] [address] Phone [phone] Care Team Providers Care Auto Heater Mechanic Name Role Phone Shelby Hector MD Primary Care Provid er Reason for Visit * Reason Comments Left Message Encounter Details Date Type Department Care Team (Late st Contact Info) Description 08/22/2023 2:30 PM EDT Pharmacy Pharmacy, [place] [address], [place] [id number] Clinic, [place] [address] [place] [address] Iron deficiency anemia, unspecified iron deficiency anemia type* Allergies Active Allergy Reactions Criticality Noted Date Comments Erythromycin Base 06/04/2002 rash Lactose Other (Please comment) High 08/04/2015 Dietary. Lactose intolerant, Severe G.I. Intolerance. Penicillins 05/18/1999 "As a child, unsure of reaction." Chlorpheniramine-Phenyl ephrine Rash Low 10/29/2010 documented as of this encounter (statuses as of 08/22/2023) Medications Medication Sig Dispensed Refills Start Date [...] as of this encounter (statuses as of 08/22/2023) Active Problems Problem Noted Date Diagnosed Date [...] as of this encounter (statuses as of 08/22/2023) Resolved Problems Problem Noted Date Diagnosed Date Resolved Date Pilonidal cyst 08/17/2010 09/26/2016 CELLULITIS OF BUTTOCK, RIGHT UPPER 08/17/2010 07/15/2016 STREP SORE THROAT 06/04/2002 07/15/2016 ACUTE URI NOS 06/04/2002 07/15/2016 documented as of this encounter (statuses as of 08/22/2023) Immunizations Name Administration Dates Next Due PPD [...] money to get more. Never true 08/15/2023 [place] Depression Scale Answer Date Recorded [place] Depression Scale Total 4 08/15/2023 The thought [...] as of this encounter Progress Notes * Liana Becker, [facility] - 08/22/2023 3:02 PM EDT CBCd, ferritin, iron screen, retic panel, B12, FA ordered for 09/13/23. Liana Becker, PharmD, BCPS Clinical Pharmacist [facility] (P: [phone]) 08/22/2023 3:02 PM * Carey Black, supervisor - 08/22/2023 9:14 AM EDT Patient Phone Numbers MyG sent to patient. Patient received Venofer 300 mg x 3 on 08/02, 08/09 and 08/16. Labs due on 09/12. GA: 35w1d Estimated Date of Delivery: 09/25/23 Pharmacist - please place appropriate lab orders. Thank you, Carey Black Cabin Outfitter 08/22/2023,9:15 AM documented in this encounter Plan of Treatment Upcoming Encounters Date Type Department Care Team (Late st Contact Info) Description 09/01/2023 8:30 AM EDT [facility] [address] [place] [address] Gail Peterson CRNP [address] [place] [address] 09/05/2023 8:45 AM EDT Office [facility] [address] [place] [address] Gail Peterson CRNP [address] [place] [address] 09/13/2023 8:10 AM EDT [facility] [address] [place] [phone] DixonMikhail griffith Ling [address] [place] [address] 09/13/2023 8:45 AM EDT Office [facility] [address] [place] [address] Reyes Bashir MD [address] [place] [address] 09/14/2023 9:30 AM EDT Pharmacy Pharmacy, [place] [address] [place] [address] Clinic, [place] [address] [place] [address] 09/22/2023 8:45 AM EDT Office Visit Gynecology/Obstetrics [facility] [address] [place] [address] Nehal Mendoza CRNP [address] [place] [address] Scheduled Orders Name Type Priority Associated Diagnoses Orde r Schedule CBC WITH WBC DIFFERENTIAL Lab Routine Iron deficiency anemia, unspecified iron deficiency anemia type Expected: 09/13/2023, Expires: 07/21/2024 IRON SCREEN, INCLUDING TIBC Lab Routine Iron deficiency anemia, unspecified iron deficiency anemia type Expected: 09/13/2023, Expires: 07/21/2024 FERRITIN Lab Routine Iron deficiency anemia, unspecified iron deficiency anemia type Expected: 09/13/2023, Expires: 07/21/2024 RETICULOCYTE PANEL Lab Routine Iron deficiency anemia, unspecified iron deficiency anemia type Expected: 09/13/2023, Expires: 07/21/2024 FOLIC ACID Lab Routine Iron deficiency anemia, unspecified iron deficiency anemia type Expected: 09/13/2023, Expires: 07/21/2024 VITAMIN B12 Lab Routine Iron deficiency anemia, unspecified iron deficiency anemia type Expected: 09/13/2023, Expires: 07/21/2024 Health Maintenance Due Date Last Done Comments [...] and were consensually agreed upon. Care Teams Auto Heater Mechanic Relationship Specialty Start Date End Date Shelby Hector MD [address] [place] [facility] [place] [facility] [place] [address] PCP - General Family Medicine 06/14/22 documented as of this encounter
--- OUTSIDE RECORDS SUMMARY | 2023-09-21 23:43 | External Medical Summary | Summary of Care ---
Author Name Unknown Organization [facility] Address [address] [facility] [place] [address] Phone [phone] Care Team Providers Care Print Finishing Worker Name Role Phone Shelby Hector MD Primary Care Provid er Reason for Visit * Reason Comments Return Visit Encounter Details Date Type Department Care Team (Late st Contact Info) Description 07/20/2023 11:45 AM EDT Office Visit Gynecology/Obstetric [facility] [address] [facility] [place] [address] Nay Nieves MD [address] [place] [address] 35 weeks gestation of *; Antepartum anemia complicating ; Rh negative status during in third trimester; Maternal asthma complicating ; Swelling of lower leg; Multigravida of advanced maternal age in third trimester; Tachycardia Allergies Active Allergy Reactions Criticality Noted Date Comments Erythromycin Base 06/04/2002 rash Lactose Other (Please comment) High 08/04/2015 Dietary. Lactose intolerant, Severe G.I. Intolerance. Penicillins 05/18/1999 "As a child, unsure of reaction." Chlorpheniramine-Phenyl ephrine Rash Low 10/29/2010 documented as of this encounter (statuses as of 07/20/2023) Medications Medication Sig Dispensed Refills Start Date [...] as of this encounter (statuses as of 07/20/2023) Active Problems Problem Noted Date Diagnosed Date Anxiety 03/01/2023 Irritable bowel syndrome 03/01/2023 Normal [...] as of this encounter (statuses as of 07/20/2023) Resolved Problems Problem Noted Date Diagnosed Date Resolved Date Pilonidal cyst 08/17/2010 09/26/2016 CELLULITIS OF BUTTOCK, RIGHT UPPER 08/17/2010 07/15/2016 STREP SORE THROAT 06/04/2002 07/15/2016 ACUTE URI NOS 06/04/2002 07/15/2016 documented as of this encounter (statuses as of 07/20/2023) Immunizations Name Administration Dates Next Due PPD [...] in the Last Year Never true 10/30/2018 [place] Depression Scale Answer Date Recorded [place] Depression Scale Total 4 07/06/2023 The thought [...] Sign Reading Time Taken Comments Blood Pressure 114/72 07/20/2023 11:44 AM EDT Pulse 110 07/20/2023 11:44 AM EDT Temperature - - Respiratory Rate - - Oxygen Saturation - - Inhaled Oxygen Concentration - - Weight 68 kg (150 lb) 07/20/2023 11:44 AM EDT Height 160 cm (5' 2.99") 07/20/2023 11:44 AM EDT Body Mass Index 26.58 07/20/2023 11:44 AM EDT documented in this encounter Progress Notes * Nay Nieves MD - 07/20/2023 12:05 PM EDT Rola Riley is a 33 year old female here for her routine OB appointment at 30w3d. Patient offers no complaints today. She was seen by the wheelage clerk for tachycardia. Her Estimated Date of Delivery: 09/25/23 REVIEW OF SYSTEMS: She affirms movement. Denies vaginal bleeding, LOF, regular contractions, N/V, headaches PHYSICAL EXAM: Filed Vitals: 07/20/23 1144 BP: 114/72 Weight: 68 kg (150 lb) Height: 1.6 m (5' 2.99") +FHT 150 bpm Fundal height 31 cm ASSESSMENT/PLAN: (O99.019) Antepartum anemia complicating Plan: Patient is scheduled for IV iron infusions. (O26.893, Z67.91) Rh negative status during in third trimester Plan: Patient received RhoGAM on 07/06/2023. (O99.519, J45.909) Maternal asthma complicating Plan: Patient has no complaints with regards to Asthma today. (M79.89) Swelling of lower leg Plan: Patient states that leg swelling is much better today. Patient was encouraged to wear compression stockings. (O09.529) AMA (advanced maternal age) multigravida 35+ Plan: Q leonides and MSAFP were within normal limits. (R00.0) Tachycardia Plan: Patient was seen by the wheelage clerk. Echocardiogram done. Patient has a follow up appointment withthe wheelage clerk. (Z3A.35) 35 weeks gestation of (primary encounter diagnosis) Plan: . - labor precautions and kick counts reviewed - RTO in 2 weeks Nay Nieves MD documented in this encounter Nursing Notes * Karen Fuller LPN - 07/20/2023 11:55 AM EDT 30w3d Still waiting to schedule for iron infx. Hopefully next week. Cardiology recommend f/u with UA for trace protein. documented in this encounter Plan of Treatment Upcoming Encounters Date Type Department Care Team (Late st Contact Info) Description 07/25/2023 4:00 PM EDT Pharmacy Pharmacy, [place] [address] [place] [address] Clinic, Anemia [address] [place] [address] 08/02/2023 8:45 AM EDT Office Visit Gynecology/Obstetrics [facility] [address] [place] [address] Yarely Goldstein, DNP, CNM [address] [facility] [place] [address] 08/09/2023 3:00 PM EDT Office Visit Cardiology, [facility] [address] [place] [address] Candy Cordova PA-C [address] [place] [address] 08/15/2023 8:45 AM EDT Office Visit Gynecology/Obstetrics [facility] [address] [place] [address] Gail Peterson CRNP [address] [place] [address] 09/01/2023 8:30 AM EDT Office Visit Gynecology/Obstetrics [facility] [address] [place] [address] Gail Peterson CRNP [address] [place] [address] Pending Results Name Type Priority Associated Diagnoses Date /Time URINALYSIS, REFLEX TO MICROSCOPIC Lab Routine 35 weeks gestation of 07/20/2023 12:25 PM EDT Health Maintenance Due Date Last Done Comments Pneumococcal Vaccine: Pediatrics (0 to 5 Years) and At-Risk Patients (6 to 64 Years) (1 of 2 - PCV) 02/04/1994 Depression Screening 10/31/2019 10/30/2018 COVID-19 Vaccine (1 - 2022-24 season) 2022 Influenza Vaccine (FLU shot) (#1) 2022 07/10/2017 (Declined), 01/27/2016, 01/16/2015, Additional history exists [...] as of this encounter Visit Diagnoses Diagnosis 35 weeks gestation of - Primary state, incidental Antepartum anemia complicating Anemia, antepartum Rh negative status during in third trimester Maternal asthma complicating Other current maternal conditions classifiable elsewhere, complicating , childbirth, or the puerperium, unspecified as to episode of care Swelling of lower leg Multigravida of advanced maternal age in third trimester Tachycardia Tachycardia, unspecified documented in this encounter Advance Directives Latest Code Status on File Code Status Date Activated Date Inactivated Comments Full Code 10/04/2019 12:16 PM 10/04/2019 6:39 PM This order reflects the patients wishes and were consensually agreed upon. Care Teams Print Finishing Worker Relationship Specialty Start Date End Date Shelby Hector MD [address] [place] [address] PCP - General Family Medicine 06/14/22 documented as of this encounter
--- OUTSIDE RECORDS SUMMARY | 2023-09-21 23:43 | External Medical Summary ---
Author Name Unknown Address Unknown Organization K01:[facility] [address] [place] [address] Laboratory Report Ordering Provider Test Date Status ALETHA GUZMÁN 07/20/2023 12:15:45 Final Observation Date Value Abnormality Reference (Units ) Status SYNC LEUKOCYTES IN BLOOD BY AUTOMATED COUNT 07/20/2023 12:15:45 9.17 4.00-10.80 (K/uL) Final Segs 07/20/2023 12:15:45 66.6 40.0-75.0 (%) Final Lymphs % 07/20/2023 12:15:45 24.9 18.0-42.0 (%) Final Monos 07/20/2023 12:15:45 7.0 1.0-11.0 (%) Final Eosinophils 07/20/2023 12:15:45 0.5 0.0-6.0 (%) Final Basos 07/20/2023 12:15:45 0.2 0.0-2.0 (%) Final Immature Granulocyte, Percent 07/20/2023 12:15:45 0.8 0.0-2.0 (%) Final Absolute Segs 07/20/2023 12:15:45 6.11 1.80-7.70 (K/uL) Final Lymphs, absolute 07/20/2023 12:15:45 2.28 1.00-4.80 (K/ul) Final Monos, Abs 07/20/2023 12:15:45 0.64 0.00-1.10 (K/uL) Final Eos, Abs 07/20/2023 12:15:45 0.05 0.00-0.70 (K/uL) Final Basos, Abs 07/20/2023 12:15:45 0.02 0.00-0.20 (K/uL) Final Immature Granulocytes, Number 07/20/2023 12:15:45 0.07 0.00-0.20 (K/uL) Final Performing Location [facility] [address] [facility] [address]
--- OUTSIDE RECORDS SUMMARY | 2023-09-21 23:43 | External Medical Summary | Summary of Care ---
Author Name Unknown Organization [facility] Address [address] [facility] [place] [address] Phone [phone] Care Team Providers Care Baseball Sewer Hand Name Role Phone Shelby Hector MD Primary Care Provid er Reason for Visit * Reason Comments IV Therapy Venofer Encounter Details Date Type Department Care Team (Latest Contact Info) Description 08/10/2023 1:00 PM EDT Hem/Onc Treatment Hematology/Oncology Treatment, [place] [address] [place] [address] Park, Chair 3 Hem Onc Scene [address] [place], [place] [phone] Iron deficiency anemia, unspecified iron deficiency anemia type* Allergies Active Allergy Reactions Criticality Noted Date Comments Erythromycin Base 06/04/2002 rash Lactose Other (Please comment) High 08/04/2015 Dietary. Lactose intolerant, Severe G.I. Intolerance. Penicillins 05/18/1999 "As a child, unsure of reaction." Chlorpheniramine-Phenyl ephrine Rash Low 10/29/2010 documented as of this encounter (statuses as of 08/31/2023) Medications Medication Sig Dispensed Refills Start Date [...] as of this encounter (statuses as of 08/31/2023) Active Problems Problem Noted Date Diagnosed Date [...] as of this encounter (statuses as of 08/31/2023) Resolved Problems Problem Noted Date Diagnosed Date Resolved Date Pilonidal cyst 08/17/2010 09/26/2016 CELLULITIS OF BUTTOCK, RIGHT UPPER 08/17/2010 07/15/2016 STREP SORE THROAT 06/04/2002 07/15/2016 ACUTE URI NOS 06/04/2002 07/15/2016 documented as of this encounter (statuses as of 08/31/2023) Immunizations Name Administration Dates Next Due PPD [...] in the Last Year Never true 10/30/2018 [place] Depression Scale Answer Date Recorded [place] Depression Scale Total 4 07/06/2023 The thought [...] Sign Reading Time Taken Comments Blood Pressure 113/76 08/10/2023 1:18 PM EDT Pulse 99 08/10/2023 1:18 PM EDT Temperature 36.3 C (97.4 F) 08/10/2023 1:18 PM ED T Respiratory Rate 16 08/10/2023 1:18 PM EDT Oxygen Saturation 95% 08/10/2023 1:18 PM EDT Inhaled Oxygen Concentration - - Weight - - Height - - Body Mass Index - - documented in this encounter Nursing Notes * Anabel Carrera LPN - 08/10/2023 3:04 PM EDT IV therapy Venofer completed. IV access was discontinued, site was cleaned and bandaged. Patient was discharged in stable condition. * Anabel Carrera LPN - 08/10/2023 1:25 PM EDT Patient arrived Chair 5 for IV therapy Venofer. Vital signs are stable. IV access successful at theright median antecubital. Patient has no complaints. documented in this encounter Plan of Treatment Upcoming Encounters Date Type Department Care Team (Late st Contact Info) Description 09/01/2023 8:30 AM EDT [facility] [address] [place] [place] [address] Gail Peterson CRNP [address] [place] [place] [address] 09/05/2023 8:45 AM EDT Office Visit Gynecology/Obstetrics [facility] [address] [place] [address] Gail Peterson CRNP [address] [place] [address] 09/13/2023 8:10 AM EDT [facility] [address] [place] [phone] Mikhail Dixon [facility] [address] [place] [address] 09/13/2023 8:45 AM EDT Office Visit Gynecology/Obstetrics [facility] [address] [place] [address] Reyes Bashir MD [address] [place] [address] 09/14/2023 9:30 AM EDT Pharmacy Pharmacy, [address] [id number] [id number] 09/22/2023 8:45 AM EDT Office Visit Gynecology/Obstetrics [facility] [address] [place] [address] Nehal Mendoza CRNP [address] [place] [address] Health Maintenance Due Date Last Done Comments [...] IV Piggyback, ONCE, 1 dose, On Shaina 08/10/23 at 1445, Administer over 90 Minutes Start Infusion 08/10/2023 1:21 PM EDT 300 mg 166.67 mL/hr NSS infusion 500 mL, Intravenous, at 50 mL/hr, CONTINUOUS, Starting on Shaina 08/10/23 at 1415, Until Shaina 08/10/23 at 1907 Start Infusion 08/10/2023 1:21 PM EDT 500 mL 50 mL/hr documented in this encounter Advance Directives Latest Code Status on File Code Status Date Activated Date Inactivated Comments Full Code 10/04/2019 12:16 PM 10/04/2019 6:39 PM This order reflects the patients wishes and were consensually agreed upon. Care Teams Baseball Sewer Hand Relationship Specialty Start Date End Date Shelby Hector MD [address] [place] [address] PCP - General Family Medicine 06/14/22 documented as of this encounter
--- OUTSIDE RECORDS SUMMARY | 2023-09-21 23:43 | External Medical Summary | Summary of Care ---
Author Name Unknown Organization [facility] Address [address] [facility] [place] [address] Phone [phone] Care Team Providers Care Ux Engineer Name Role Phone Shelby Hector MD Primary Care Provid er Reason for Visit * Reason Comments Return Visit Encounter Details Date Type Department Care Team (Late st Contact Info) Description 08/15/2023 8:45 AM EDT Office Visit Gynecology/Obstetric s Zonia Dixon [address] [place] [address] Gail Peterson CRNP [address] [place] [address] Normal in third trimester*; Multigravida of advanced [...] as of this encounter (statuses as of 08/15/2023) Medications Medication Sig Dispensed Refills Start Date [...] as of this encounter (statuses as of 08/15/2023) Active Problems Problem Noted Date Diagnosed Date [...] as of this encounter (statuses as of 08/15/2023) Resolved Problems Problem Noted Date Diagnosed Date Resolved Date Pilonidal cyst 08/17/2010 09/26/2016 CELLULITIS OF BUTTOCK, RIGHT UPPER 08/17/2010 07/15/2016 STREP SORE THROAT 06/04/2002 07/15/2016 ACUTE URI NOS 06/04/2002 07/15/2016 documented as of this encounter (statuses as of 08/15/2023) Immunizations Name Administration Dates Next Due PPD [...] money to get more. Never true 08/15/2023 [place] Depression Scale Answer Date Recorded [place] Depression Scale Total 4 08/15/2023 The thought [...] Reading Time Taken Comments Blood Pressure 116/74 08/15/2023 8:38 AM EDT Pulse - - Temperature - - Respiratory Rate - - Oxygen Saturation - - Inhaled Oxygen Concentration - - Weight 70.8 kg (156 lb) 08/15/2023 8:38 AM EDT Height - - Body Mass Index 27.64 08/01/2023 3:44 PM EDT documented in this encounter Progress Notes * Gail Peterson CRNP - 08/15/2023 8:42 AM EDT 34w1d Doing well. Given labor instructions. Discussed GBS swab to be completed at next visit. Baby is active. No ctx, leaking, bleeding. Completed FMLA forms given to pt. Discussed sheet metal worker, public relations coordinator OB. 2 week return SAVI Peguero documented in this encounter Plan of Treatment Upcoming Encounters Date Type Department Care Team (Late st Contact Info) Description 08/17/2023 1:30 PM EDT Hem/Onc Treatment Hematology/Oncology Treatment, [address] [phone] Vero, Chair [address] [place] [address] 08/18/2023 2:00 PM EDT Pharmacy Pharmacy, [place] [address] [place] [address] Clinic, Anemia [address] [place] [address] 09/01/2023 8:30 AM EDT Office Visit Gynecology/Obstetrics [facility] [address] [facility] [place] [address] Gail Peterson CRNP [address] [facility] [place] [address] 09/05/2023 8:45 AM EDT Office Visit Gynecology/Obstetrics [facility] [address] [place] [address] Gail Peterson CRNP [address] [place] [address] 09/13/2023 8:45 AM EDT Office Visit Gynecology/Obstetrics [facility] [address] [place] [address] Reyes Bashir MD [address] [place] [address] 09/22/2023 8:45 AM EDT Office Visit Gynecology/Obstetrics [facility] [address] [place] [address] Nehal Mendoza CRNP [address] [place] [address] 10/23/2023 8:30 AM EDT Office Visit Cardiology, [facility] [address] [place] [address] Candy Cordova PA-C [address] [place] [address] Health Maintenance Due Date Last Done Comments [...] and were consensually agreed upon. Care Teams Ux Engineer Relationship Specialty Start Date End Date Shelby Hector MD [address] [place] [address] PCP - General Family Medicine 06/14/22 documented as of this encounter
--- OUTSIDE RECORDS SUMMARY | 2023-09-21 23:43 | External Medical Summary | Summary of Care ---
Author Name Unknown Organization [facility] Address [address] [place] [place] [address] Phone [phone] Care Team Providers Care Machine Hose Cutter Name Role Phone Shelby Hector MD Primary Care Provid er Reason for Visit * Reason Comments IV Therapy Venofer Encounter Details Date Type Department Care Team (Latest Contact Info) Description 08/10/2023 1:00 PM EDT Hem/Onc Treatment Hematology/Oncology Treatment, [place] [address] [place] [address] Park, Chair 3 Hem Onc Scenery [address] [place], [place] [phone] Iron deficiency anemia, unspecified iron deficiency anemia type* Allergies Active Allergy Reactions Criticality Noted Date Comments Erythromycin Base 06/04/2002 rash Lactose Other (Please comment) High 08/04/2015 Dietary. Lactose intolerant, Severe G.I. Intolerance. Penicillins 05/18/1999 "As a child, unsure of reaction." Chlorpheniramine-Phenyl ephrine Rash Low 10/29/2010 documented as of this encounter (statuses as of 08/10/2023) Medications Medication Sig Dispensed Refills Start Date [...] as of this encounter (statuses as of 08/10/2023) Active Problems Problem Noted Date Diagnosed Date [...] as of this encounter (statuses as of 08/10/2023) Resolved Problems Problem Noted Date Diagnosed Date Resolved Date Pilonidal cyst 08/17/2010 09/26/2016 CELLULITIS OF BUTTOCK, RIGHT UPPER 08/17/2010 07/15/2016 STREP SORE THROAT 06/04/2002 07/15/2016 ACUTE URI NOS 06/04/2002 07/15/2016 documented as of this encounter (statuses as of 08/10/2023) Immunizations Name Administration Dates Next Due PPD [...] in the Last Year Never true 10/30/2018 [place] Depression Scale Answer Date Recorded [place] Depression Scale Total 4 07/06/2023 The thought [...] Description 08/15/2023 8:45 AM EDT Office Visit Gynecology/Obstetrics [facility] [address] [place] [address] [place], SAVI Larsen [address] [place] [address] 08/17/2023 1:30 PM EDT Hem/Onc Treatment Hematology/Oncology Treatment, [place] [address] [place] [phone] Vero, Chair 8 Hem Onc Scenery [address] [place] [address] 08/18/2023 2:00 PM EDT [facility] [address] [place] [address] Clinic, [facility] [address] [place] [address] 09/01/2023 8:30 AM EDT Office Visit Gynecology/Obstetrics [facility] [address] [place] [address] Gail Peterson CRNP [address] [place] [address] 10/23/2023 8:30 AM EDT Office Visit Cardiology, [facility] [address] [place] [address] Candy Cordova PA-C [address] [place] [address] Health Maintenance Due Date Last Done Comments [...] ONCE PRN Other, Hypersensitivity Reaction, Starting on Mon08/10/23 at 1304, Until Mon08/11/23 at 1303, For 24 hours EPINEPHrine 1 MG/ML inj 0.3 mg 0.3 mg, Intramuscular, ONCE PRN Other, Hypersensitivity Reaction or Anaphylaxis, Starting on Mon08/10/23 at 1304, Until Mon08/11/23 at 1303, For 24 hours hEParin 100 UNIT/ML Lock Flush inj 500 Units 500 Units (5 mL), IV Lock, PRN Other, IV Flush, Starting on Mon08/10/23 at 1304, Until Mon08/11/23 at 1303, For 24 hours, Do not flush if lock, PICC, or central line not in place; IV infusing or unable to flush. Hydrocortisone Sod Suc (PF) (Solu-Cortef) inj 100 mg 100 mg, IV Push, ONCE PRN Other, Hypersensitivity Reaction, Starting on Mon08/10/23 at 1304, Until Mon08/11/23 at 1303, For 24 hours NSS infusion 500 mL, Intravenous, at 50 mL/hr, CONTINUOUS, Starting on Mon08/10/23 at 1415, Until Mon08/11/23 at 0014 Start Infusion 08/10/2023 1:21 PM EDT 500 mL 50 mL/hr oxygen GAS Inhalation, OXYGEN, First dose on Mon08/10/23 at 1600, Until Discontinued, Device/Managed by: Low [...] PRN Other, IV Flush, Starting on Shaina 08/10/23 at 1304, Until Mon08/11/23 at 1303, For 24 hours, Do not flush if [...] 1:21 PM EDT 300 mg 166.67 mL/hr documented in this encounter Advance Directives Latest Code Status on File Code Status Date Activated Date Inactivated Comments Full Code 10/04/2019 12:16 PM 10/04/2019 6:39 PM This order reflects the patients wishes and were consensually agreed upon. Care Teams Machine Hose Cutter Relationship Specialty Start Date End Date Shelby Hector MD [address] [place], [place] [phone] PCP - General Family Medicine 06/14/22 documented as of this encounter
--- OUTSIDE RECORDS SUMMARY | 2023-09-21 23:43 | External Medical Summary ---
Author Name Unknown Address Unknown Organization K01:[facility] [place] [address] [place] [id number] Laboratory Report Ordering Provider Test Date Status ANNA MARIEKOLADE 07/20/2023 12:25:58 Final Observation Date Value Abnormality Reference (Units ) Status Color of Urine by Auto 07/20/2023 12:25:58 Colorless Colorless, Light Yellow, Yellow, Dark Yellow Final Clarity, Urine 07/20/2023 12:25:58 Clear Clear Final Glucose [Mass/volume] in Urine by Automated test strip 07/20/2023 12:25:58 Negative Negative (mg/dL) Final Bilirubin.total [Presence] in Urine by Automated test strip 07/20/2023 12:25:58 Negative Negative Final Ketones [Mass/volume] in Urine by Automated test strip 07/20/2023 12:25:58 Negative Negative (mg/dL) Final Specific gravity, Urine 07/20/2023 12:25:58 1.005 1.003-1.030 Final Hemoglobin [Presence] in Urine by Automated test strip 07/20/2023 12:25:58 Negative Negative Final pH, Urine 07/20/2023 12:25:58 6.5 5.0-7.5 (Units) Final Protein [Mass/volume] in Urine by Automated test strip 07/20/2023 12:25:58 Negative Negative (mg/dL) Final Urobilinogen [Mass/volume] in Urine by Automated test strip 07/20/2023 12:25:58 Normal Normal (mg/dL) Final Nitrite [Presence] in Urine by Automated test strip 07/20/2023 12:25:58 Negative Negative Final Leukocyte esterase [Presence] in Urine by Automated test strip 07/20/2023 12:25:58 Negative Negative Final Annotation Comment 07/20/2023 12:25:58 Final Screen negative - Microscopi c not performed. Performing Location [facility] - [address] [place] [id number]
--- OUTSIDE RECORDS SUMMARY | 2023-09-21 23:43 | External Medical Summary | Summary of Care ---
Author Name Unknown Organization [facility] Address [address] [place] [address] Phone [phone] Care Team Providers Care Cork Slabs Sawyer Name Role Phone Shelby Hector MD Primary Care Provid er Reason for Visit * Reason Onset Date Comments Anemia Follow-Up 07/25/2023 * Evaluate & Treat - Unlimited Visits (Within 10 days (routine)) - Authorized Specialty Diagnoses / Procedures Referred By Conttio t Referred To Contact Pharmacist / Pharmacy Diagnoses SHARITA (iron deficiency anemia) Gail Peterson CRNP [address] [place] [address] Referral ID Status Reason Start Date Expiration Date Visits Requested Visits Authorized [id number] Authorized Specialty Services Required 07/17/2023 99 99 Encounter Details Date Type Department Care Team (Late st Contact Info) Description 07/25/2023 4:00 PM EDT Pharmacy Pharmacy, [place] [address] [place] [address] Clinic, Anemia [address] [place] [address] Iron deficiency anemia, unspecified iron deficiency anemia [...] in the Last Year Never true 10/30/2018 [place] Depression Scale Answer Date Recorded [place] Depression Scale Total 4 07/06/2023 The thought [...] as of this encounter Progress Notes * Makenna Guzman [facility] - 07/25/2023 2:08 PM EDT Patient Phone Numbers Patient referred by SAVI Martinez for evaluation of anemia by the Anemia Clinic. Called patient to introduce role/clinic and to review labs from 07/19. Hgb: 11.1 g/dL TSAT: 21 % Ferritin: 9 ng/mL GA: 31w1d Estimated Date of Delivery: 09/25/23 Hgb is below target range for the third trimester. Iron studies below target range. Patient reports feeling extra tired and short of breath almost daily and otherwise denies signs/symptoms of anemia. Patient is taking Vitron C daily and appears to be tolerating it well. Patient qualifies for IV iron repletion. Plan: Venofer 300 mg IV weekly x 3 doses at SP. Orders placed and routed to appropriate parties. Patient agreeable to intervention. Follow-up labs to be scheduled ~4-6 weeks after iron repletion completed if appropriate prior to delivery. Anemia Clinic will continue to follow. Thank you for allowing us to participate in the care of thispatient. Thanks, Makenna Guzman [facility] Clinical Pharmacist [facility]emia [facility] (P: [phone]) 07/25/2023 2:08 PM documented in this encounter Plan of Treatment Upcoming Encounters Date Type Department Care Team (Late st Contact Info) Description 08/02/2023 8:45 AM EDT Office Visit Gynecology/Obstetrics [facility] [address] [facility] [place] [address] Yarely Goldstein, KIMBER, CN [address] [place] [address] 08/09/2023 10:00 AM EDT Pharmacy Pharmacy, [place] [address] [facility] [address] Clinic, Anemia [address] [place] [address] 08/09/2023 3:00 PM EDT Office Visit Cardiology, [facility] [address] [place] [address] Candy Cordova PA-C [address] [place] [address] 08/15/2023 8:45 AM EDT Office Visit Gynecology/Obstetrics [facility] [address] [place] [address] Gail Peterson CRNP [address] [place] [address] 09/01/2023 8:30 AM EDT Office Visit Gynecology/Obstetrics [facility] [address] [place] [address] Gail Peterson CRNP [address] [place] [address] Scheduled Referrals Name Type Priority Associated Diagnoses Orde r Schedule PHARMACIST MEDS THERAPY MGMT REFERRAL OP Referral Within 10 days (routine) SHARITA (iron deficiency anemia) Ordered: 07/17/2023 Health Maintenance Due Date Last Done Comments [...] and were consensually agreed upon. Care Teams Cork Slabs Sawyer Relationship Specialty Start Date End Date Shelby Hector MD [address] [place] [address] PCP - General Family Medicine 06/14/22 documented as of this encounter
--- OUTSIDE RECORDS SUMMARY | 2023-09-21 23:43 | External Medical Summary | Summary of Care ---
Author Name Unknown Organization [facility] Address [address] [facility] [place] [address] Phone [phone] Care Team Providers Care Commercial Lines Assistant Name Role Phone Shelby Hector MD Primary Care Provid er Reason for Referral * Evaluate & Treat - Unlimited Visits (Within 30 days (routine)) - Authorized Specialty Diagnoses / Procedures Referred By Lauri lucero Referred To Contact Cardiovascular Medicine / Cardiology Diagnoses Sinus tachycardia Shelby Hector MD [address] [place] [address] Referral ID Status Reason Start Date Expiration Date Visits Requested Visits Authorized [id number] Authorized Specialty Services Required 07/31/2023 999 999 Question Answer Referral Priority Within 30 days (routine) Where should this appointment be scheduled? [facility] To which of the following clinics are you referring your patient? General Cardiology Clinic Reason for Visit * Reason Onset Date Comments Referral 07/31/2023 Encounter Details Date Type Department Care Team (Late st Contact Info) Description 07/31/2023 Telephone [facility] [address] [place] [address] Shelby Hector MD [address] [place] [address] Referral Allergies Active Allergy Reactions Criticality Noted Date Comments Erythromycin Base 06/04/2002 rash Lactose Other (Please comment) High 08/04/2015 Dietary. Lactose intolerant, Severe G.I. Intolerance. Penicillins 05/18/1999 "As a child, unsure of reaction." Chlorpheniramine-Phenyl ephrine Rash Low 10/29/2010 documented as of this encounter (statuses as of 07/31/2023) Medications Medication Sig Dispensed Refills Start Date [...] as of this encounter (statuses as of 07/31/2023) Active Problems Problem Noted Date Diagnosed Date [...] as of this encounter (statuses as of 07/31/2023) Resolved Problems Problem Noted Date Diagnosed Date Resolved Date Pilonidal cyst 08/17/2010 09/26/2016 CELLULITIS OF BUTTOCK, RIGHT UPPER 08/17/2010 07/15/2016 STREP SORE THROAT 06/04/2002 07/15/2016 ACUTE URI NOS 06/04/2002 07/15/2016 documented as of this encounter (statuses as of 07/31/2023) Immunizations Name Administration Dates Next Due PPD [...] in the Last Year Never true 10/30/2018 [place] Depression Scale Answer Date Recorded [place] Depression Scale Total 4 07/06/2023 The thought [...] on file documented as of this encounter Miscellaneous Notes * Telephone Encounter - Shelby Hector MD - 07/31/2023 5:18 PM EDT signed * Telephone Encounter - Rosalina uRggiero RN - 07/31/2023 8:42 AM EDT Patient's insurance requires updated referral for upcoming Cardiology evaluation 08/09/23. Referral pended, please sign if agreeable. Once signed, please route to scheduling to link with appointment. Thank you. documented in this encounter Plan of Treatment Upcoming Encounters Date Type Department Care Team (Late st Contact Info) Description 08/01/2023 3:40 PM EDT Office Visit [facility] [address] [place] [phone] Shelby Hector MD [address] [place] [address] 08/02/2023 8:45 AM EDT Office Visit Gynecology/Obstetrics [facility] [address] [facility] [place] [address] Yarely Goldstein, KIMBER, CNM [address] [facility] [place] [address] 08/03/2023 1:00 PM EDT Hem/Onc Treatment Hematology/Oncology Treatment, [place] [address] [place] [address] Vero, Chair 6 Hem Onc Scenery [address] [place] [address] 08/09/2023 10:00 AM EDT Pharmacy Pharmacy, [place] [address] [place] [address] Clinic, Anemia [address] [place] [address] 08/09/2023 3:00 PM EDT Office Visit Cardiology, [facility] [address] [place] [address] Candy Cordova PA-C [address] [place] [address] 08/10/2023 1:00 PM EDT Hem/Onc Treatment Hematology/Oncology Treatment, [address], [place] [phone] Vero, Chair [address] [place] [address] 08/15/2023 8:45 AM EDT Office Visit Gynecology/Obstetrics [facility] [address] [place] [address] Gail Peterson CRNP [address] [place] [address] 08/17/2023 1:30 PM EDT Hem/Onc Treatment Hematology/Oncology Treatment, [address], [place] [phone] Vero, Chair 8 Hem Onc [facility] [address] [facility] [place] [address] 09/01/2023 8:30 AM EDT Office Visit Gynecology/Obstetrics [facility] [address] [place] [address] BackGail pool CRNP [address] [place] [address] Scheduled Referrals Name Type Priority Associated Diagnoses Orde r Schedule CARDIOLOGY REFERRAL OP Referral Within 30 days (routine) Sinus tachycardia Ordered: 07/31/2023 Health Maintenance Due Date Last Done Comments Pneumococcal Vaccine: Pediatrics (0 to 5 Years) and At-Risk Patients (6 to 64 Years) (1 of 2 - PCV) 02/04/1994 Depression Screening 10/31/2019 10/30/2018 COVID-19 Vaccine (1 - 2022- season) 2022 [...] as of this encounter Visit Diagnoses Diagnosis Sinus tachycardia- Primary Other specified cardiac dysrhythmias documented in this encounter Advance Directives Latest Code Status on File Code Status Date Activated Date Inactivated Comments Full Code 10/04/2019 12:16 PM 10/04/2019 6:39 PM This order reflects the patients wishes and were consensually agreed upon. Care Teams Commercial Lines Assistant Relationship Specialty Start Date End Date Shelby Hector MD [address] [place] [address] PCP - General Family Medicine 06/14/22 documented as of this encounter
--- OUTSIDE RECORDS SUMMARY | 2023-09-21 23:43 | External Medical Summary | Summary of Care ---
Author Name Unknown Organization [facility] Address [address] [place] [address] Phone [phone] Care Team Providers Care Php Mysql Developer Name Role Phone Shelby Hector MD Primary Care Provid er Encounter Details Date Type Department Care Team (Late st Contact Info) Description 08/16/2023 Orders Only Pharmacy, [place] [address] [place], [place] [phone] [facility] [address] [place] [address] Allergies Active Allergy Reactions Criticality Noted Date Comments Erythromycin Base 06/04/2002 rash Lactose Other (Please comment) High 08/04/2015 Dietary. Lactose intolerant, Severe G.I. Intolerance. Penicillins 05/18/1999 "As a child, unsure of reaction." Chlorpheniramine-Phenyl ephrine Rash Low 10/29/2010 documented as of this encounter (statuses as of 08/16/2023) Medications Medication Sig Dispensed Refills Start Date [...] as of this encounter (statuses as of 08/16/2023) Active Problems Problem Noted Date Diagnosed Date [...] as of this encounter (statuses as of 08/16/2023) Resolved Problems Problem Noted Date Diagnosed Date Resolved Date Pilonidal cyst 08/17/2010 09/26/2016 CELLULITIS OF BUTTOCK, RIGHT UPPER 08/17/2010 07/15/2016 STREP SORE THROAT 06/04/2002 07/15/2016 ACUTE URI NOS 06/04/2002 07/15/2016 documented as of this encounter (statuses as of 08/16/2023) Immunizations Name Administration Dates Next Due PPD [...] money to get more. Never true 08/15/2023 [place] Depression Scale Answer Date Recorded [place] Depression Scale Total 4 08/15/2023 The thought [...] 1:30 PM EDT Hem/Onc Treatment Hematology/Oncology Treatment, [place] [address] [place] [phone] Vero, Chair 8 Hem Onc Scenery [address] [place] [address] 08/18/2023 2:00 PM EDT Pharmacy Pharmacy, [place] [address] [place] [address] Clinic, [facility] [address] [place] [address] 09/01/2023 8:30 AM EDT Office Visit Gynecology/Obstetrics [facility] [address] [place] [address] Gail Peterson CRNP [address] [place] [address] 09/05/2023 8:45 AM EDT Office Visit Gynecology/Obstetrics [facility] [address] [place] [address] Gail Peterson CRNP [address] [place] [address] 09/13/2023 8:45 AM EDT Office Visit Gynecology/Obstetrics [facility] [address] [place] [address] Reyes Bashir MD [address] [place] [address] 09/22/2023 8:45 AM EDT Office Visit Gynecology/Obstetrics [facility] [address] [place] [address] Nehal Mendoza CRNP [address] [place] [address] 10/23/2023 8:30 AM EDT Office Visit Cardiology, [facility] [address] [place] [address] Candy Cordova PA-C [address] [place] [address] Health Maintenance Due Date Last Done Comments [...] Not on filedocumented as of this encounter Advance Directives Latest Code Status on File Code Status Date Activated Date Inactivated Comments Full Code 10/04/2019 12:16 PM 10/04/2019 6:39 PM This order reflects the patients wishes and were consensually agreed upon. Care Teams Php Mysql Developer Relationship Specialty Start Date End Date Shelby Hector MD [address] [facility] [place] [address] PCP - General Family Medicine 06/14/22 documented as of this encounter
--- OUTSIDE RECORDS SUMMARY | 2023-09-21 23:43 | External Medical Summary | Summary of Care ---
Author Name Unknown Organization [facility] Address [address] [facility] [place] [address] Phone [phone] Care Team Providers Care Thermostat Maker Name Role Phone Shelby Hector MD Primary Care Provid er Reason for Visit * Reason Comments Outpatient Testing Encounter Details Date Type Department Care Team (Late st Contact Info) Description 07/20/2023 12:20 PM EDT Laboratory Laboratory, [facility] [address] [place] [phone] [facility] [address] [place] [address] Antepartum anemia complicating Allergies Active Allergy Reactions Criticality Noted [...] in the Last Year Never true 10/30/2018 [place] Depression Scale Answer Date Recorded [place] Depression Scale Total 4 07/06/2023 The thought [...] Description 07/25/2023 4:00 PM EDT Pharmacy Pharmacy, [place] [address] [facility] [address] Clinic, [place] [address] [place] [facility] [place] [address] 08/02/2023 8:45 AM EDT Office Visit Gynecology/Obstetrics [facility] [address] [facility] [place] [address] Yarely Goldstein, DNP, CNM [address] [place] [address] 08/09/2023 3:00 PM EDT Office Visit Cardiology, [facility] [address] [place] [address] Candy Cordova PA-C [address] [place] [address] 08/15/2023 8:45 AM EDT Office Visit Gynecology/Obstetrics [facility] [address] [place] [address] Gail Peterson CRNP [address] [place] [address] 09/01/2023 8:30 AM EDT Office Visit Gynecology/Obstetrics [facility] [address] [place] [address] Gail Peterson CRNP [address] [place] [address] Pending Results Name Type Priority Associated Diagnoses Date /Time IRON SCREEN, INCLUDING TIBC Lab Routine Antepartum anemia complicating 07/20/2023 12:15 PM EDT Health Maintenance Due Date Last Done Comments Pneumococcal Vaccine: Pediatrics (0 to 5 Years) and At-Risk Patients (6 to 64 Years) (1 of 2 - PCV) 02/04/1994 Depression Screening 10/31/2019 10/30/2018 COVID-19 Vaccine ( - 2022-24 season) 2022 Influenza Vaccine (FLU [...] as of this encounter Visit Diagnoses Diagnosis Antepartum anemia complicating Anemia, antepartum documented in this encounter Advance Directives Latest Code Status on File Code Status Date Activated Date Inactivated Comments Full Code 10/04/2019 12:16 PM 10/04/2019 6:39 PM This order reflects the patients wishes and were consensually agreed upon. Care Teams Thermostat Maker Relationship Specialty Start Date End Date Shelby Hector MD [address] [place] [facility] [place] [address] PCP - General Family Medicine 06/14/22 documented as of this encounter
--- OUTSIDE RECORDS SUMMARY | 2023-09-21 23:43 | External Medical Summary | Summary of Care ---
Author Name Unknown Organization [facility] Address [address] [facility] [place] [address] Phone [phone] Care Team Providers Care Mechanical Design Technician Name Role Phone Shelby Hector MD Primary Care Provid er Reason for Visit * Reason Comments Return Visit 32w2d Encounter Details Date Type Department Care Team (Late st Contact Info) Description 08/02/2023 8:45 AM EDT Office Visit Gynecology/Obstetric s [facility] [address] [facility] [place] [address] Yarely Goldstein, DNP, CNM [address] [facility] [place] [address] Normal intrauterine , antepartum*; Antepartum multigravida of advanced maternal age; Rh negative, antepartum; Maternal asthma complicating ; Other iron deficiency anemia Allergies Active Allergy Reactions Criticality Noted Date Comments Erythromycin Base 06/04/2002 rash Lactose Other (Please comment) High 08/04/2015 Dietary. Lactose intolerant, Severe G.I. Intolerance. Penicillins 05/18/1999 "As a child, unsure of reaction." Chlorpheniramine-Phenyl ephrine Rash Low 10/29/2010 documented as of this encounter (statuses as of 08/09/2023) Medications Medication Sig Dispensed Refills Start Date [...] as of this encounter (statuses as of 08/09/2023) Active Problems Problem Noted Date Diagnosed Date [...] as of this encounter (statuses as of 08/09/2023) Resolved Problems Problem Noted Date Diagnosed Date Resolved Date Pilonidal cyst 08/17/2010 09/26/2016 CELLULITIS OF BUTTOCK, RIGHT UPPER 08/17/2010 07/15/2016 STREP SORE THROAT 06/04/2002 07/15/2016 ACUTE URI NOS 06/04/2002 07/15/2016 documented as of this encounter (statuses as of 08/09/2023) Immunizations Name Administration Dates Next Due PPD [...] in the Last Year Never true 10/30/2018 [place] Depression Scale Answer Date Recorded [place] Depression Scale Total 4 07/06/2023 The thought [...] Sign Reading Time Taken Comments Blood Pressure 122/70 08/02/2023 8:56 AM EDT Pulse - - Temperature - - Respiratory Rate - - Oxygen Saturation - - Inhaled Oxygen Concentration - - Weight 69.7 kg (153 lb 9.6 oz) 08/02/2023 8:56 A M EDT Height - - Body Mass Index 27.22 08/01/2023 3:44 PM EDT documented in this encounter Progress Notes * Yarely Goldstein DNP, CNM - 08/02/2023 9:06 AM EDT Rola Riley is a 33 year old female here for her routine OB appointment at 32w2d Her Estimated Date of Delivery: 09/25/23 REVIEW OF SYSTEMS: She affirms movement. Denies vaginal bleeding, LOF, contractions, N/V, headaches PHYSICAL EXAM: Filed Vitals: 08/02/23 0856 BP: 122/70 Weight: 69.7 kg (153 lb 9.6 oz) ASSESSMENT/PLAN: (Z34.90) Normal intrauterine , antepartum (primary encounter diagnosis) (D50.8) Other iron deficiency anemia Plan: - Starting 1st of 3 venofer infusions tomorrow Supervision of - labor precautions and kick counts reviewed - RTO in 2 weeks Yarely Goldstein DNP, CNM documented in this encounter Nursing Notes * Tamica Arrington CMA - 08/02/2023 8:55 AM EDT Chief Complaint Patient presents with Return Visit 32w2d documented in this encounter Plan of Treatment Upcoming Encounters Date Type Department Care Team (Late st Contact Info) Description 08/10/2023 1:00 PM EDT Hem/Onc Treatment Hematology/Oncology Treatment, [place] [address] [place] [phone] Vero, Chair 3 Hem [facility] [address] 08/15/2023 8:45 AM EDT Office Visit Gynecology/Obstetrics [facility] [address] [place] [address] BackGail pool CRNP [address] [place] [address] 08/17/2023 1:30 PM EDT Hem/Onc Treatment Hematology/Oncology Treatment, [place] [address] [place] [address] Vero, Chair 8 Hem Onc Scenery [address] [place] [address] 08/18/2023 2:00 PM EDT Pharmacy Pharmacy, [address] [id number] 09/01/2023 8:30 AM EDT Office Visit Gynecology/Obstetrics [facility] [address] [place] [address] Gail Peterson CRNP [address] [place] [address] 10/23/2023 8:30 AM EDT Office Visit Cardiology, [facility] [address] [place] [address] Candy Cordova PA-C [address] [place] [address] Health Maintenance Due Date Last Done Comments [...] of this encounter Visit Diagnoses Diagnosis Normal intrauterine , antepartum- Primary Antepartum multigravida of advanced maternal age Rh negative, antepartum Rhesus isoimmunization affecting management of mother, antepartum condition Maternal asthma complicating Other current maternal conditions classifiable elsewhere, complicating , childbirth, or the puerperium, unspecified as to episode of care Other iron deficiency anemia documented in this encounter Advance Directives Latest Code Status on File Code Status Date Activated Date Inactivated Comments Full Code 10/04/2019 12:16 PM 10/04/2019 6:39 PM This order reflects the patients wishes and were consensually agreed upon. Care Teams Mechanical Design Technician Relationship Specialty Start Date End Date Shelby Hector MD [address] [facility] [place] [address] PCP - General Family Medicine 06/14/22 documented as of this encounter
--- OUTSIDE RECORDS SUMMARY | 2023-09-21 23:43 | External Medical Summary | Summary of Care ---
Author Name Unknown Organization [facility] Address [address] [place] [address] Phone [phone] Care Team Providers Care Warehouse Packer Name Role Phone Shelby Hector MD Primary Care Provid er Encounter Details Date Type Department Care Team (Late st Contact Info) Description 07/26/2023 Orders Only Pharmacy, [place] [address] [place], [place] [phone] [facility] [address] [place] [address] Allergies Active Allergy Reactions Criticality Noted Date Comments Erythromycin Base 06/04/2002 rash Lactose Other (Please comment) High 08/04/2015 Dietary. Lactose intolerant, Severe G.I. Intolerance. Penicillins 05/18/1999 "As a child, unsure of reaction." Chlorpheniramine-Phenyl ephrine Rash Low 10/29/2010 documented as of this encounter (statuses as of 07/26/2023) Medications Medication Sig Dispensed Refills Start Date [...] as of this encounter (statuses as of 07/26/2023) Active Problems Problem Noted Date Diagnosed Date [...] as of this encounter (statuses as of 07/26/2023) Resolved Problems Problem Noted Date Diagnosed Date Resolved Date Pilonidal cyst 08/17/2010 09/26/2016 CELLULITIS OF BUTTOCK, RIGHT UPPER 08/17/2010 07/15/2016 STREP SORE THROAT 06/04/2002 07/15/2016 ACUTE URI NOS 06/04/2002 07/15/2016 documented as of this encounter (statuses as of 07/26/2023) Immunizations Name Administration Dates Next Due PPD [...] in the Last Year Never true 10/30/2018 [place] Depression Scale Answer Date Recorded [place] Depression Scale Total 4 07/06/2023 The thought [...] 08/02/2023 8:45 AM EDT Office Visit Gynecology/Obstetrics [facility] [address] [place] [address] Yarely Goldstein, KIMBER, CNM [address] [place] [id number] 08/09/2023 10:00 AM EDT [address], [address] [place] [address] Clinic, [place] [address] [facility], [place] [address] 08/09/2023 3:00 PM EDT Office Visit Cardiology, [facility] [address] [place] [address] Candy Cordova PA-C [address] [place] [address] 08/15/2023 8:45 AM EDT Office Visit Gynecology/Obstetrics [facility] [address] [place] [address] Gail Peterson CRNP [address] [place] [address] 09/01/2023 8:30 AM EDT Office Visit Gynecology/Obstetrics [facility] [address] [place] [address] Gail Peterson CRNP [address] [place] [address] Health Maintenance Due Date Last Done Comments [...] and were consensually agreed upon. Care Teams Warehouse Packer Relationship Specialty Start Date End Date Shelby Hector MD [address] [place] [address] PCP - General Family Medicine 06/14/22 documented as of this encounter
--- OUTSIDE RECORDS SUMMARY | 2023-09-21 23:43 | External Medical Summary | Summary of Care ---
Author Name Unknown Organization [facility] Address [address] [place] [place] [address] Phone [phone] Care Team Providers Care Joy Operator Name Role Phone Shelby Hector MD Primary Care Provid er Reason for Referral * Evaluate & Treat - Unlimited Visits (Within 10 days (routine)) - Authorized Specialty Diagnoses / Procedures Referred By Lauri lucero Referred To Contact Pharmacist / Pharmacy Diagnoses SHARITA (iron deficiency anemia) Gail Peterson CRNP [address] [place] [address] Referral ID Status Reason Start Date Expiration Date Visits Requested Visits Authorized [id number] Authorized Specialty Services Required 07/17/2023 99 99 Question Answer Referral Priority Within 10 days (routine) Where should this appointment be scheduled? 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 Reason for Referral: Anemia Comments Pharmacist Medication Therapy Management: Iron deficiency anemia Larry Noble RN Reason for Visit * Reason Onset Date Comments Blood Management Program 07/17/2023 Encounter Details Date Type Department Care Team (Late st Contact Info) Description 07/17/2023 Telephone Patient Blood Management, [place] [address] [place] [address] Gail Peterson CRNP [address] [place] [address] Blood Management Program Allergies Active Allergy Reactions Criticality Noted Date Comments Erythromycin Base 06/04/2002 rash Lactose Other (Please comment) High 08/04/2015 Dietary. Lactose intolerant, Severe G.I. Intolerance. Penicillins 05/18/1999 "As a child, unsure of reaction." Chlorpheniramine-Phenyl ephrine Rash Low 10/29/2010 documented as of this encounter (statuses as of 07/27/2023) Medications Medication Sig Dispensed Refills Start Date [...] as of this encounter (statuses as of 07/27/2023) Active Problems Problem Noted Date Diagnosed Date [...] as of this encounter (statuses as of 07/27/2023) Resolved Problems Problem Noted Date Diagnosed Date Resolved Date Pilonidal cyst 08/17/2010 09/26/2016 CELLULITIS OF BUTTOCK, RIGHT UPPER 08/17/2010 07/15/2016 STREP SORE THROAT 06/04/2002 07/15/2016 ACUTE URI NOS 06/04/2002 07/15/2016 documented as of this encounter (statuses as of 07/27/2023) Immunizations Name Administration Dates Next Due PPD [...] in the Last Year Never true 10/30/2018 [place] Depression Scale Answer Date Recorded [place] Depression Scale Total 4 07/06/2023 The thought [...] encounter Miscellaneous Notes * Telephone Encounter - Indira Domínguez OSA - 07/27/2023 8:21 AM EDT Called pt and scheduled appts for all 3 tx * Telephone Encounter - Marine Moss RN - 07/27/2023 7:42 AM EDT [place] is signed. Scheduling: please call patient to schedule 2 hour appt "venofer 04/26" (Gail Backer). Thanks! Patient will need venofer once a week x3 doses. * Telephone Encounter - Gail Miller LPN - 07/25/2023 3:11 PM EDT Order received for Venofer. [place] plan built and routed to [facility]. No Prior Auth required. Awaiting sign-off before scheduling patient. * Telephone Encounter - Larry Noble RN - 07/17/2023 10:09 AM EDT Recommend IV iron per OB MTM guidelines. Patient is agreeable, prefers infusion at [facility]. documented in this encounter Plan of Treatment Upcoming Encounters Date Type Department Care Team (Late st Contact Info) Description 08/02/2023 8:45 AM EDT Office Visit Gynecology/Obstetrics [facility] [address] [place] [address] Yarely Goldstein, KIMBER, CN [address] [place] [address] 08/03/2023 1:00 PM EDT Hem/Onc Treatment Hematology/Oncology Treatment[address] [place] [phone] Vero, Chair [address], [place] [address] 08/09/2023 10:00 AM EDT Pharmacy Pharmacy, [place] [address] [place], [place] [phone] Clinic, An[place] [address] [place] [address] 08/09/2023 3:00 PM EDT Office Visit Cardiology, [facility] [address] [facility] [place] [address] Candy Cordova PA-C [address] [place] [address] 08/10/2023 1:00 PM EDT Hem/Onc Treatment Hematology/Oncology Treatment, [address] [place] [phone] Vero, Chair 3 Hem Onc [address], [place] [address] 08/15/2023 8:45 AM EDT Office Visit Gynecology/Obstetrics [facility] [address] [place] [address] Gail Peterson CRNP [address] [place] [address] 08/17/2023 1:30 PM EDT Hem/Onc Treatment Hematology/Oncology Treatment, [address], [place] [address] Vero, Chair 8 Hem Onc Scenery [address] [place] [address] 09/01/2023 8:30 AM EDT Office Visit Gynecology/Obstetrics [facility] Dixon [address] [place] [address] Backer, SAVI Larsen [address] [place] [address] Scheduled Referrals Name Type Priority Associated Diagnoses Orde r Schedule PHARMACIST MEDS THERAPY MGMT REFERRAL OP Referral Within 10 days (routine) SHARITA (iron deficiency anemia) Ordered: 07/17/2023 Health Maintenance Due Date Last Done Comments Pneumococcal Vaccine: Pediatrics (0 to 5 Years) and At-Risk Patients (6 to 64 Years) (1 of 2 - PCV) 02/04/1994 Depression Screening 10/31/2019 10/30/2018 COVID-19 Vaccine ( season) 2022 Influenza Vaccine (FLU shot) (Season [...] as of this encounter Visit Diagnoses Diagnosis SHARITA (iron deficiency anemia)- Primary Iron deficiency anemia, unspecified documented in this encounter Advance Directives Latest Code Status on File Code Status Date Activated Date Inactivated Comments Full Code 10/04/2019 12:16 PM 10/04/2019 6:39 PM This order reflects the patients wishes and were consensually agreed upon. Care Teams Joy Operator Relationship Specialty Start Date End Date Shelby Hector MD [address] [place] [facility] [place] [address] PCP - General Family Medicine 06/14/22 documented as of this encounter
--- OUTSIDE RECORDS SUMMARY | 2023-09-21 23:44 | External Medical Summary ---
Author Name Unknown Address Unknown Organization [facility] [place] [address] [place] [address] Laboratory Report Ordering Provider Test Date Status SABI DOYLE 07/12/2023 15:04:48 Final Observation Date Value Abnormality Reference (Units ) Status BUN 07/12/2023 15:04:48 6 6-20 (mg/dL) Final Creatinine 07/12/2023 15:04:48 0.6 0.5-1.0 (mg/dL) Final Glomerular filtration rate/1.73 sq M.predicted [Volume Rate/Area] in Serum, Plasma or Blood by Creatinine-based formula (CKD-EPI) 07/12/2023 15:04:48 >90 >=60 (mL/min) Final eGFR is calculated based on the CKD-EPI 2020 equation Sodium 07/12/2023 15:04:48 138 135-146 (m mol/L) Final Potassium 07/12/2023 15:04:48 3.8 3.5-5.1 (m mol/L) Final Cl 07/12/2023 15:04:48 103 98-107 (mm ol/L) Final CO2 07/12/2023 15:04:48 23 22-32 (mmo l/L) Final Anion gap 07/12/2023 15:04:48 12 7-15 (mmol /L) Final Glucose 07/12/2023 15:04:48 106 70-120 (mg /dL) Final Calcium 07/12/2023 15:04:48 8.7 8.4-10.2 ( mg/dL) Final Performing Location [facility] [place] [address] [place] [address]
--- OUTSIDE RECORDS SUMMARY | 2023-09-21 23:44 | External Medical Summary | Summary of Care ---
Author Name Unknown Organization [facility] Address [address] [facility] [place] [address] Phone [phone] Care Team Providers Care Nurse Chemical Dependency Name Role Phone Shelby Hector MD Primary Care Provid er Reason for Referral * Evaluate & Treat - Unlimited Visits (Within 10 days (routine)) Specialty Diagnoses / Procedures Referred By Lauri lucero Referred To Contact Gail Peterson CRNP [address] [place] [address] Referral ID Status Reason Start Date Expiration Date V isits Requested Visits Authorized Specialty Services Required Question Answer Referral Priority Within 10 days (routine) Where should this appointment be scheduled? [place] Encounter Details Date Type Department Care Team (Late st Contact Info) Description 07/14/2023 Telephone Gynecology/Obstetrics [facility] 400 [facility] [place] [phone] Erica Anderson CNM 400 [place] [address] Allergies Active Allergy Reactions Criticality Noted Date Comments Erythromycin Base 06/04/2002 rash Lactose Other (Please comment) High 08/04/2015 Dietary. Lactose intolerant, Severe G.I. Intolerance. Penicillins 05/18/1999 "As a child, unsure of reaction." Chlorpheniramine-Phenyl ephrine Rash Low 10/29/2010 documented as of this encounter (statuses as of 07/17/2023) Medications Medication Sig Dispensed Refills Start Date [...] as of this encounter (statuses as of 07/17/2023) Active Problems Problem Noted Date Diagnosed Date [...] as of this encounter (statuses as of 07/17/2023) Resolved Problems Problem Noted Date Diagnosed Date Resolved Date Pilonidal cyst 08/17/2010 09/26/2016 CELLULITIS OF BUTTOCK, RIGHT UPPER 08/17/2010 07/15/2016 STREP SORE THROAT 06/04/2002 07/15/2016 ACUTE URI NOS 06/04/2002 07/15/2016 documented as of this encounter (statuses as of 07/17/2023) Immunizations Name Administration Dates Next Due PPD [...] in the Last Year Never true 10/30/2018 [place] Depression Scale Answer Date Recorded [place] Depression Scale Total 4 07/06/2023 The thought [...] encounter Miscellaneous Notes * Telephone Encounter - Omayra Lee RN - 07/17/2023 9:28 AM EDT Patient called in and made aware of below. She verbalized understanding. [facility]. * Telephone Encounter - Karis Pham RN - 07/17/2023 8:21 AM EDT left message for patient to call office * Telephone Encounter - Gail Peterson CRNP - 07/17/2023 7:50 AM EDT Needs iron infusions d/t worsening anemia and not tolerating PO iron. Referral placed. Will need additional labs, ordered. SAVI Peguero * Telephone Encounter - Marielena Garcia RN - 07/14/2023 1:17 PM EDT T/C from pt stating she saw the Seed Corn Manager Production on 07/12/23. Seed Corn Manager Production wanted pt to complete a repeat CBC due to the low iron and was wondering if a provider could review her new CBC and iron levels. Pt still having racing heart rate but did not take Vitron C 07/12 and reports she did not have heartburn or upset stomach. She states her bowels seemed more normal by the end of the day. Pt states shewould be interested in pursuing iron infusions because she is not tolerating the Vitron C well. Please review and advise, thanks! documented in this encounter Plan of Treatment Upcoming Encounters Date Type Department Care Team (Late st Contact Info) Description 07/20/2023 11:45 AM EDT Office Visit Gynecology/Obstetrics [facility] [address] [place] [address] Nay Nieves MD [address] [facility] [place] [address] 08/02/2023 8:45 AM EDT Office Visit Gynecology/Obstetrics [facility] [address] [facility] [place] [address] Yarely Goldstein, DNP, CNM [address] [facility] [place] [address] 08/09/2023 3:00 PM EDT Office Visit Cardiology, [facility] [address] [address] Candy Cordova PA-C [address] [place] [address] 08/15/2023 8:45 AM EDT Office Visit Gynecology/Obstetrics [facility] [address] [address] Gail Peterson CRNP [address] [place] [address] 09/01/2023 8:30 AM EDT Office Visit Gynecology/Obstetrics [facility] [address] [place] [address] Gail Peterson CRNP [address] [place] [address] Scheduled Orders Name Type Priority Associated Diagnoses Orde r Schedule IRON SCREEN, INCLUDING TIBC Lab Routine Antepartum anemia complicating Expected: 07/17/2023, Expires: 07/16/2024 Scheduled Referrals Name Type Priority Associated Diagnoses Orde r Schedule BLOOD MANAGEMENT REFERRAL Referral Within 10 days (routine) Antepartum anemia complicating Ordered: 07/17/2023 Health Maintenance Due Date Last Done Comments Pneumococcal Vaccine: Pediatrics (0 to 5 Years) and At-Risk Patients (6 to 64 Years) (1 of 2 - PCV) 02/04/1994 Depression Screening 10/31/2019 10/30/2018 COVID-19 Vaccine (1 - season) 2022 Influenza Vaccine (FLU shot) (#1) [...] encounter Visit Diagnoses Diagnosis Antepartum anemia complicating - Primary Anemia, antepartum documented in this encounter Advance Directives Latest Code Status on File Code Status Date Activated Date Inactivated Comments Full Code 10/04/2019 12:16 PM 10/04/2019 6:39 PM This order reflects the patients wishes and were consensually agreed upon. Care Teams Nurse Chemical Dependency Relationship Specialty Start Date End Date Shelby Hector MD [address] [facility] [place] [address] PCP - General Family Medicine 06/14/22 documented as of this encounter
--- OUTSIDE RECORDS SUMMARY | 2023-09-21 23:44 | External Medical Summary | Summary of Care ---
Author Name Unknown Organization [facility] Address [address] [place] [address] Phone [phone] Care Team Providers Care Vacuum Extractor Operator Name Role Phone Shelby Hector MD Primary Care Provid er Reason for Visit * Reason Comments Blood Management Program Encounter Details Date Type Department Care Team (Late st Contact Info) Description 07/17/2023 Documentation Patient Blood Management, [facility] [address] [place] [address] Larry Noble RN Allergies Active Allergy Reactions Criticality Noted Date [...] as of this encounter Progress Notes * Larry Noble RN - 07/17/2023 10:01 AM EDT REFERRAL - Patient Blood Management Name: Rola Riley REQUESTING SERVICE: Ling Dixon OB REASON FOR REFERRAL: new evaluation outpatient, anemia in [place]: 09/25/23 Anemia Evaluation: Latest Reference Range & Units 06/22/23 11:37 07/12/23 15:04 HGB 12.0 - 15.3 g/dL 10.7 (L) 10.6 (L) HCT 36.0 - 45.2 % 32.4 (L) 33.0 (L) Iron 33 - 151 ug/dL 57 Iron Binding Capacity 250 - 425 ug/dL 461 (H) Transferrin Saturation Percent 15 - 55 % 12 (L) Ferritin 13 - 150 ng/mL 9 (L) Vitamin B12 232 - 1,245 pg/mL 309 Folic Acid >4.5 ng/mL >20.0 Immature Reticuloctye Fraction 2.5 - 20.6 % 34.3 (H) Reticulocyte Hemoglobin 29.7 - 37.4 pg 28.3 (L) (L): Data is abnormally low (H): Data is abnormally high Current Patient Medications: Medications that may impair hemostasis: none Medications that may impair iron absorption: omeprazole Patient Refused Blood Transfusion? (e.g. [facility]): no Possible Contributing Factors: iron deficiency Treatment Recommendations: IV iron per OB MTM guidelines. 07/16 - Spoke with Rola, she is agreeable to IV iron at [facility]. Will submit OB MTM. Thank you for allowing Blood Management to participate in the care of this patient. documented in this encounter Plan of Treatment Upcoming Encounters Date Type Department Care Team (Late st Contact Info) Description 07/20/2023 11:45 AM EDT Office Visit Gynecology/Obstetrics [facility] [address] [facility] [place] [id number] Nay Nieves MD [address] [facility] [place] [phone] 08/02/2023 8:45 AM EDT Office Visit Gynecology/Obstetrics [facility] [address] [facility] [place] [address] Yarely Goldstein DNP, CNM [facility] [address] 08/09/2023 3:00 PM EDT Office Visit Cardiology, [facility] [address] [place] [address] Candy Cordova PA-C [address] [facility] [place] [id number] 08/15/2023 8:45 AM EDT Office Visit Gynecology/Obstetrics [facility] [address] [place] [address] Gail Peterson CRNP [address] [place] [address] 09/01/2023 8:30 AM EDT Office Visit Gynecology/Obstetrics [facility] [address] [place] [address] Gail Peterson CRNP [address] [place] [address] Health Maintenance Due Date Last Done Comments Pneumococcal Vaccine: Pediatrics (0 to 5 Years) and At-Risk Patients (6 to 64 Years) (1 of 2 - PCV) 02/04/1994 Depression Screening 10/31/2019 10/30/2018 COVID-19 Vaccine (1 - 2022- season) 2022 Influenza Vaccine (FLU shot) (#1) [...] and were consensually agreed upon. Care Teams Vacuum Extractor Operator Relationship Specialty Start Date End Date Shelby Hector MD [address] [place] [facility] [place] [address] PCP - General Family Medicine 06/14/22 documented as of this encounter
--- OUTSIDE RECORDS SUMMARY | 2023-09-21 23:44 | External Medical Summary | Summary of Care ---
Author Name Unknown Organization [facility] Address [address] [facility] [place] [address] Phone [phone] Care Team Providers Care Tower Observer Name Role Phone Shelby Hector MD Primary Care Provid er Reason for Visit * Reason Comments Outpatient Testing Encounter Details Date Type Department Care Team (Late st Contact Info) Description 07/12/2023 3:20 PM EDT Laboratory Laboratory, [facility] [address] [place] [phone] [facility] [address] [place] [address] Sinus tachycardia Allergies Active Allergy Reactions Criticality Noted Date Comments Erythromycin Base 06/04/2002 rash Lactose Other (Please comment) High 08/04/2015 Dietary. Lactose intolerant, Severe G.I. Intolerance. Penicillins 05/18/1999 "As a child, unsure of reaction." Chlorpheniramine-Phenyl ephrine Rash Low 10/29/2010 documented as of this encounter (statuses as of 07/12/2023) Medications Medication Sig Dispensed Refills Start Date [...] as of this encounter (statuses as of 07/12/2023) Active Problems Problem Noted Date Diagnosed Date [...] as of this encounter (statuses as of 07/12/2023) Resolved Problems Problem Noted Date Diagnosed Date Resolved Date Pilonidal cyst 08/17/2010 09/26/2016 CELLULITIS OF BUTTOCK, RIGHT UPPER 08/17/2010 07/15/2016 STREP SORE THROAT 06/04/2002 07/15/2016 ACUTE URI NOS 06/04/2002 07/15/2016 documented as of this encounter (statuses as of 07/12/2023) Immunizations Name Administration Dates Next Due PPD [...] in the Last Year Never true 10/30/2018 [place] Depression Scale Answer Date Recorded [place] Depression Scale Total 4 07/06/2023 The thought [...] Care Team (Late st Contact Info) Description 07/13/2023 7:00 AM EDT Cardiac Studies Cardiac Studies, [facility] [address] [facility] [place] [address] 07/20/2023 11:45 AM EDT Office Visit [facility]cology[facility] [address] [place] [address] Nay Nieves MD [address] [place] [address] [place] [address] 08/02/2023 8:45 AM EDT Office Visit Gynecology/Obstetrics [facility] [address] [place] [place] [address] Yarely Goldstein, DNP, CNM [address] [place] [address] 08/09/2023 3:00 PM EDT Office Visit Cardiology, [facility] [address] [place] [address] Candy Cordova PA-C [address] [place], [place] [address] 08/15/2023 8:45 AM EDT Office Visit Gynecology/Obstetrics [facility] [address] [place] [address] Gail Peterson CRNP [address] [place] [address] 09/01/2023 8:30 AM EDT Office Visit Gynecology/Obstetrics [facility] [address] [place] [address] Gail Peterson CRNP [address] [place] [address] Pending Results Name Type Priority Associated Diagnoses Date /Time BASIC METABOLIC PANEL Lab Routine Sinus tachycardia 07/12/2023 3:04 PM EDT URINALYSIS, REFLEX TO MICROSCOPIC Lab Routine Sinus tachycardia 07/12/2023 3:08 PM EDT Health Maintenance Due Date Last Done Comments Pneumococcal Vaccine: Pediatrics (0 to 5 Years) and At-Risk Patients (6 to 64 Years) (1 of 2 - PCV) 02/04/1994 Depression Screening 10/31/2019 10/30/2018 COVID-19 Vaccine ( - 2022-24 season) 2022 Influenza Vaccine (FLU shot) (#1) 2022 07/10/2017 (Declined), 01/27/2016, 01/16/2015, Additional history exists Diabetes Screening 11/21/2023 11/20/2020, 0 07/10/2017, 07/15/2016 Pap Smear 03/01/2026 03/01/2023, 06/2 08/2017, 10/07/2016, Additional history exists Cervical Cancer Screening 03/01/2028 [...] Not on filedocumented as of this encounter Procedures Procedure Name Priority Date/Time Associated Diagnosis Comments DIFFERENTIAL, AUTOMATED Routine 07/12/2023 3:04 PM EDT Sinus tachycardia CBC Routine 07/12/2023 3:04 PM EDT Sinus tachycardia CBC Routine 07/12/2023 3:04 PM EDT Sinus tachycardia documented in this encounter Results * DIFFERENTIAL, AUTOMATED (07/12/2023 3:04 PM EDT) WBC 10.18 4.00 - 10.80 K/uL 07/12/2023 3:24 PM EDT [facility] [place] [facility] Neutrophils % 70.8 40.0 - 75.0 % 07/12/2023 3:24 PM EDT [facility] [place] [facility] Lymphocytes % 20.6 18.0 - 42.0 % 07/12/2023 3:24 PM EDT [facility] [place] [facility] Monocytes % 7.7 1.0 - 11.0 % 07/12/2023 3:24 PM EDT [facility] [place] [facility] Eosinophils % 0.8 0.0 - 6.0 % 07/12/2023 3:24 PM EDT [facility] [place] [facility] Basophils % 0.1 0.0 - 2.0 % 07/12/2023 3:24 PM EDT [facility] [place] [facility] Absolute Neutrophils 7.21 1.80 - 7.70 K/uL 07/12/2023 3:24 PM EDT [facility] [place] [facility] Absolute Lymphocytes 2.10 1.00 - 4.80 K/ul 07/12/2023 3:24 PM EDT [facility] [place] [facility] Absolute Monocytes 0.78 0.00 - 1.10 K/uL 07/12/2023 3:24 PM EDT [facility] [place] [facility] Absolute Eosinophils 0.08 0.00 - 0.70 K/uL 07/12/2023 3:24 PM EDT [facility] [place] [facility] Absolute Basophils 0.01 0.00 - 0.20 K/uL 07/12/2023 3:24 PM EDT [facility] [place] [facility] Blood Venous blood specimen / Unknown Venipuncture / Unknown 07/12/2023 3:04 PM EDT 07/12/2023 3:04 PM EDT Willian Baires MD LAB BLOOD ORDERABLES Performing Organization Address City/State/[facility] Co de Phone Number [facility] [place] [address] [place] [address] * (ABNORMAL) CBC (07/12/2023 3:04 PM EDT) WBC 10.18 4.00 - 10.80 K/uL 07/12/2023 3:24 PM EDT [facility] [place] [facility] RBC 3.50 3.85 - 5.15 M/uL 07/12/2023 3:24 PM EDT [facility] [place] [facility] HGB 10.6(L) 12.0 - 15.3 g/dL 07/12/2023 3:24 PM EDT [facility] [place] [facility] HCT 33.0(L) 36.0 - 45.2 % 07/12/2023 3:24 PM EDT [facility] [place] [facility] MCV 94.3 81.5 - 97.5 fL 07/12/2023 3:24 PM EDT [facility] [place] [facility] MCH 30.3 27.0 - 34.0 pg 07/12/2023 3:24 PM EDT [facility] [place] [facility] MCHC 32.1 32.0 - 36.0 g/dL 07/12/2023 3:24 PM EDT [facility] [place] [facility] RDW 14.5 11.5 - 15.5 % 07/12/2023 3:24 PM EDT [facility] [place] [facility] PLT 246 140 - 400 K/uL 07/12/2023 3:24 PM EDT [facility] [place] [facility] MPV 10.1 6.6 - 11.1 fL 07/12/2023 3:24 PM EDT [facility] [place] [facility] Blood Venous blood specimen / Unknown Venipuncture / Unknown 07/12/2023 3:04 PM EDT 07/12/2023 3:04 PM EDT Willian Baires MD LAB BLOOD ORDERABLES Performing Organization Address City/State/[facility] Co de Phone Number [facility] [place] [facility] [facility] [place] [address] documented in this encounter Visit Diagnoses Diagnosis Sinus tachycardia Other specified cardiac dysrhythmias documented in this encounter Advance Directives Latest Code Status on File Code Status Date Activated Date Inactivated Comments Full Code 10/04/2019 12:16 PM 10/04/2019 6:39 PM This order reflects the patients wishes and were consensually agreed upon. Care Teams Tower Observer Relationship Specialty Start Date End Date Shelby Hector MD [address] [place] [address] PCP - General Family Medicine 06/14/22 documented as of this encounter
--- OUTSIDE RECORDS SUMMARY | 2023-09-21 23:44 | External Medical Summary | Summary of Care ---
Author Name Unknown Organization [facility] Address [address] [facility] [place] [address] Phone [phone] Care Team Providers Care Hitting Coach Name Role Phone Shelby Hector MD Primary Care Provid er Reason for Visit * Reason Comments Return Visit Encounter Details Date Type Department Care Team (Late st Contact Info) Description 07/06/2023 9:15 AM EDT Office Visit Gynecology/Obstetric s [facility] [address] [place] [address] Gail Peterson CRNP [address] [place] [address] Normal in third trimester*; Multigravida of advanced maternal age in third trimester; Rh negative status during in third trimester; Maternal asthma complicating ; Need for prophylactic vaccination with combined txinbdckhg-rakngfg-ct rtussis (DTP) vaccine Allergies Active Allergy Reactions Criticality Noted Date Comments Erythromycin Base 06/04/2002 rash Lactose Other (Please comment) High 08/04/2015 Dietary. Lactose intolerant, Severe G.I. Intolerance. Penicillins 05/18/1999 "As a child, unsure of reaction." Chlorpheniramine-Phenyl ephrine Rash Low 10/29/2010 documented as of this encounter (statuses as of 07/06/2023) Medications Medication Sig Dispensed Refills Start Date [...] 11 09/23/2022 Active Omeprazole 20 MG Oral Tablet Delayed Release Disintegrating Take by mouth. 0 Active Iron-Vitamin C 65-125 MG Oral Tablet (Vitron C) Take 1 Tablet by mouth in the morning. 90 Tablet 1 06/23/2023 Active Docusate Sodium 100 MG Oral Capsule (Colace) Take 1 Capsule by mouth 2 times a day as needed for Constipation. 60 Capsule 5 06/23/2023 Active Hospital, Clinic, or Other Facility Administered Medication Ordered Dose Route Frequency Start Date End Date Status Rho D Immune Globulin (Rhophylac) inj 300 mcgIndications:Rh negative status during in third trimester 300 mcg IM ONCE 07/06/2023 07/06/2023 Ended documented as of this encounter (statuses as of 07/06/2023) Active Problems Problem Noted Date Diagnosed Date [...] as of this encounter (statuses as of 07/06/2023) Resolved Problems Problem Noted Date Diagnosed Date Resolved Date Pilonidal cyst 08/17/2010 09/26/2016 CELLULITIS OF BUTTOCK, RIGHT UPPER 08/17/2010 07/15/2016 STREP SORE THROAT 06/04/2002 07/15/2016 ACUTE URI NOS 06/04/2002 07/15/2016 documented as of this encounter (statuses as of 07/06/2023) Immunizations Name Administration Dates Next Due PPD [...] in the Last Year Never true 10/30/2018 [place] Depression Scale Answer Date Recorded [place] Depression Scale Total 4 07/06/2023 The thought [...] Sign Reading Time Taken Comments Blood Pressure 110/62 07/06/2023 9:18 AM EDT Pulse - - Temperature - - Respiratory Rate - - Oxygen Saturation - - Inhaled Oxygen Concentration - - Weight 67.6 kg (149 lb) 07/06/2023 9:18 AM EDT Height - - Body Mass Index 26.4 06/22/2023 10:55 AM EST documented in this encounter Progress Notes * Barbi Garcia LPN - 07/06/2023 9:18 AM EDT 28w3d Denies vaginal bleeding/rom + movement Gtt today Tdap and rhogam today * Gail Peterson CRNP - 07/06/2023 9:16 AM EDT 28w3d Labs, RhoGAM, Tdap today. Baby is moving well; reviewed [facility] at length and when to call. Denies bleeding/leaking/cramping. Fewer palpitations since starting iron supplements. Has a cardiology appt next week for reported tachycardia. 2 week return SAVI Peguero documented in this encounter Nursing Notes * Barbi Garcia LPN - 07/06/2023 10:27 AM EDT Patient here for tdap & rhogam injection. Patient doing well no complaints. Injection given IM as ordered. Patient tolerated well. Patient to follow up as directed. Patient instructed to call if any complications. Patient verbalized understanding of instructions given. Injection site: Right Gluteus- rhogam Right Deltoid- tdap Medication Source: Dispensed stock medication documented in this encounter Plan of Treatment Upcoming Encounters Date Type Department Care Team (Late st Contact Info) Description 07/12/2023 2:00 PM EDT [facility] [address] [place] [address] Willian Baires MD [address] [place] [address] 07/20/2023 11:45 AM EDT Office Visit Gynecology/Obstetrics [facility] [address] [address] Nay Nieves MD [address] [place] [address] 08/02/2023 8:45 AM EDT Office Visit Gynecology/Obstetrics [facility] [address] [place] [address] Yarely Goldstein DNP, CN [address] [place] [address] 08/15/2023 8:45 AM EDT Office Visit Gynecology/Obstetrics [facility] [address] [place] [address] Gail Peterson CRNP [address] [place] [address] 09/01/2023 8:30 AM EDT Office Visit Gynecology/Obstetrics [facility] [address] [place] [address] Gail Peterson CRNP [address] [place] [address] Health Maintenance Due Date Last Done Comments Pneumococcal Vaccine: Pediatrics (0 to 5 Years) and At-Risk Patients (6 to 64 Years) (1 of 2 - PCV) 02/04/1994 Depression Screening 10/31/2019 10/30/2018 COVID-19 Vaccine ( - 2022-24 season) 2022 Influenza Vaccine (FLU shot) (#1) 2022 07/10/2017 (Declined), 01/27/2016, 01/16/2015, Additional history exists Diabetes Screening 11/21/2023 11/20/2020, 0 07/10/2017, 07/15/2016 Pap Smear 03/01/2026 03/01/2023, 06/08/2017, 10/07/2016, Additional history exists Cervical Cancer Screening [...] puerperium, unspecified as to episode of care Need for prophylactic vaccination with combined zyuelflmwb-rvqwkti-asrbkwmvr (DTP) vaccine documented in this encounter Administered Medications Inactive Administered Medications - up to 3 most recent administrations Medication Order MAR Action Action Date Dose Rate Site Rho D Immune Globulin (Rhophylac) inj 300 mcg 300 mcg, Intramuscular, ONCE, On Shaina 07/06/23 at 1000, For 1 dose, Do not administer until type and screen has been collected! 1 MCG = 5 INTERNATIONAL UNITS Given 07/06/2023 10:23 AM EDT 300 mcg Ventrogluteal Right documented in this encounter Advance Directives Latest Code Status on File Code Status Date Activated Date Inactivated Comments Full Code 10/04/2019 12:16 PM 10/04/2019 6:39 PM This order reflects the patients wishes and were consensually agreed upon. Care Teams Hitting Coach Relationship Specialty Start Date End Date Shelby Hector MD [address] [place] [address] PCP - General Family Medicine 06/14/22 documented as of this encounter
--- OUTSIDE RECORDS SUMMARY | 2023-09-21 23:44 | External Medical Summary | Summary of Care ---
Author Name Unknown Organization [facility] Address [address] [place] [facility] [place] [address] Phone [phone] Care Team Providers Care Refueler Name Role Phone Shelby Hector MD Primary Care Provid er Reason for Visit * Reason Comments Outpatient Testing Encounter Details Date Type Department Care Team (Late st Contact Info) Description 07/06/2023 9:00 AM EDT Laboratory Laboratory, [facility] [address] [place] [phone] [facility] [address] [place] [address] Normal in third trimester Allergies Active Allergy Reactions Criticality Noted Date [...] in the Last Year Never true 10/30/2018 [place] Depression Scale Answer Date Recorded [place] Depression Scale Total 4 07/06/2023 The thought [...] 07/12/2023 2:00 PM EDT [facility] [address] [place] [address] Willian Baires MD [address] [place] [address] 07/20/2023 11:45 AM EDT Office Visit Gynecology/Obstetrics [facility] [address] [place] [address] Nay Nieves MD [address] [place] [address] 08/02/2023 8:45 AM EDT Office Visit Gynecology/Obstetrics [facility] [address] [place] [address] Yarely Goldstein DNP, CN [address] [place] [address] 08/15/2023 8:45 AM EDT Office Visit Gynecology/Obstetrics [facility] [address] [address] Gail Peterson CRNP [address] [place] [address] 09/01/2023 8:30 AM EDT Office Visit Gynecology/Obstetrics [facility] [address] [place] [address] Gail Peterson CRNP [address] [place] [address] Pending Results Name Type Priority Associated Diagnoses Date /Time 50-G GESTATIONAL GLUCOSE, 1 HOUR Lab Routine Normal in third trimester 07/06/2023 10:16 AM EDT TYPE AND SCREEN Lab Routine Normal in third trimester 07/06/2023 10:16 AM EDT SYPHILIS ANTIBODY SCREEN WITH REFLEX TO RPR Lab Routine Normal in third trimester 07/06/2023 10:16 AM EDT SYPHILIS ANTIBODY SCREEN Lab Routine Normal in third trimester 07/06/2023 10:16 AM EDT Health Maintenance Due Date Last [...] 0 07/10/2017, 07/15/2016 Pap Smear 03/01/2026 03/01/2023, 09/23, 10/07/2016, Additional history exists Cervical Cancer Screening [...] encounter Visit Diagnoses Diagnosis Normal in third trimester documented in this encounter Advance Directives Latest Code Status on File Code Status Date Activated Date Inactivated Comments Full Code 10/04/2019 12:16 PM 10/04/2019 6:39 PM This order reflects the patients wishes and were consensually agreed upon. Care Teams Refueler Relationship Specialty Start Date End Date Shelby Hector MD [address] [facility] [place] [address] PCP - General Family Medicine 06/14/22 documented as of this encounter
--- OUTSIDE RECORDS SUMMARY | 2023-09-21 23:44 | External Medical Summary ---
Author Name Unknown Address Unknown Organization [id number] [place] [address] - [address] [place] [address] Laboratory Report Ordering Provider Test Date Status SABI DOYLE 07/12/2023 15:04:48 Final Observation Date Value Abnormality Reference (Units ) Status WBC, Total 07/12/2023 15:04:48 10.18 4.00-10.8 0 (K/uL) Final RBC 07/12/2023 15:04:48 3.50 3.85-5.15 (M/uL) Final Hemoglobin 07/12/2023 15:04:48 10.6 Below low normal 12 .0-15.3 (g/dL) Final HCT 07/12/2023 15:04:48 33.0 Below low normal 36. 0-45.2 (%) Final MCV 07/12/2023 15:04:48 94.3 81.5-97.5 (fL) Final MCH 07/12/2023 15:04:48 30.3 27.0-34.0 (pg) Final MCHC 07/12/2023 15:04:48 32.1 32.0-36.0 (g/dL) Final RDW 07/12/2023 15:04:48 14.5 11.5-15.5 (%) Final Platelets 07/12/2023 15:04:48 246 140-400 (K /uL) Final MPV 07/12/2023 15:04:48 10.1 6.6-11.1 ( fL) Final Performing Location [facility] [place] [facility] - [address] [place] [address]
--- OUTSIDE RECORDS SUMMARY | 2023-09-21 23:44 | External Medical Summary ---
Author Name Unknown Address Unknown Organization [facility]-[address] - [address] [place] [address] Laboratory Report Ordering Provider Test Date Status SABI DOYLE 07/12/2023 15:04:48 Final Observation Date Value Abnormality Reference (Units ) Status SYNC LEUKOCYTES IN BLOOD BY AUTOMATED COUNT 07/12/2023 15:04:48 10.18 4.00-10.80 (K/uL) Final Segs 07/12/2023 15:04:48 70.8 40.0-75.0 (%) Final Lymphs % 07/12/2023 15:04:48 20.6 18.0-42.0 (%) Final Monos 07/12/2023 15:04:48 7.7 1.0-11.0 (%) Final Eosinophils 07/12/2023 15:04:48 0.8 0.0-6.0 (%) Final Basos 07/12/2023 15:04:48 0.1 0.0-2.0 (%) Final Absolute Segs 07/12/2023 15:04:48 7.21 1.80-7.70 (K/uL) Final Lymphs, absolute 07/12/2023 15:04:48 2.10 1.00-4.80 (K/ul) Final Monos, Abs 07/12/2023 15:04:48 0.78 0.00-1.10 (K/uL) Final Eos, Abs 07/12/2023 15:04:48 0.08 0.00-0.70 (K/uL) Final Basos, Abs 07/12/2023 15:04:48 0.01 0.00-0.20 (K/uL) Final Performing Location [facility] [place] [address]
--- OUTSIDE RECORDS SUMMARY | 2023-09-21 23:44 | External Medical Summary | Summary of Care ---
Author Name Unknown Organization [facility] Address [address] [facility] [place] [address] Phone [phone] Care Team Providers Care Clearing Supervisor Name Role Phone Shelby Hector MD Primary Care Provid er Encounter Details Date Type Department Care Team (Late st Contact Info) Description 07/19/2023 Orders Only PATIENT PORTAL DO NOT DELETE THIS DEPT USED BY [place] [id number] Allergies Active Allergy Reactions Criticality Noted Date Comments Erythromycin Base 06/04/2002 rash Lactose Other (Please comment) High 08/04/2015 Dietary. Lactose intolerant, Severe G.I. Intolerance. Penicillins 05/18/1999 "As a child, unsure of reaction." Chlorpheniramine-Phenyl ephrine Rash Low 10/29/2010 documented as of this encounter (statuses as of 07/19/2023) Medications Medication Sig Dispensed Refills Start Date [...] as of this encounter (statuses as of 07/19/2023) Active Problems Problem Noted Date Diagnosed Date [...] as of this encounter (statuses as of 07/19/2023) Resolved Problems Problem Noted Date Diagnosed Date Resolved Date Pilonidal cyst 08/17/2010 09/26/2016 CELLULITIS OF BUTTOCK, RIGHT UPPER 08/17/2010 07/15/2016 STREP SORE THROAT 06/04/2002 07/15/2016 ACUTE URI NOS 06/04/2002 07/15/2016 documented as of this encounter (statuses as of 07/19/2023) Immunizations Name Administration Dates Next Due PPD [...] in the Last Year Never true 10/30/2018 Lancaster Depression Scale Answer Date Recorded Lancaster Depression Scale Total 4 07/06/2023 The thought [...] Care Team (Late st Contact Info) Description 07/19/2023 4:00 PM EDT Pharmacy Pharmacy, [place] [address] [place] [address] Clinic, [facility] [address] [place] [address] 07/20/2023 11:45 AM EDT Office Visit Gynecology/Obstetrics [facility] [address] [facility] [place] [address] Nay Nieves MD [address] [place] [address] 08/02/2023 8:45 AM EDT Office Visit Gynecology/Obstetrics [facility] [address] [place] [address] Yarely Goldstein, DNP, CNM [address] [facility] [place] [address] 08/09/2023 3:00 PM EDT Office Visit Cardiology, [facility] [address] [place] [address] Candy Cordova PA-C [address] [place] [address] 08/15/2023 8:45 AM EDT Office Visit Gynecology/Obstetrics [facility] [address] [place] [address] Gail Peterson CRNP [address] [place] [address] 09/01/2023 8:30 AM EDT Office Visit Gynecology/Obstetrics [facility] [address] [place] [address] Gail Peterson CRNP [address] [place] [address] Health Maintenance Due Date Last Done Comments Pneumococcal Vaccine: Pediatrics (0 to 5 Years) and At-Risk Patients (6 to 64 Years) (1 of 2 - PCV) 02/04/1994 Depression Screening 10/31/2019 10/30/2018 COVID-19 Vaccine ( - 24 season) 2022 Influenza Vaccine (FLU shot) (#1) [...] and were consensually agreed upon. Care Teams Clearing Supervisor Relationship Specialty Start Date End Date Shelby Hector MD [address] [place] [address] PCP - General Family Medicine 06/14/22 documented as of this encounter
--- OUTSIDE RECORDS SUMMARY | 2023-09-21 23:44 | External Medical Summary | Summary of Care ---
Author Name Unknown Organization [facility] Address [address] [place] [address] Phone [phone] Care Team Providers Care Senior Systems Administrator Name Role Phone Kevin Hector MD Primary Care Provid er Reason for Referral * Precert (Within 10 days (routine)) - Authorized Specialty Diagnoses / Procedures Referred By Contac t Referred To Contact Cardiac Studies Diagnoses Sinus tachycardia Procedures ECHO, COMPLETE (2D), TRANS-THORACIC Willian Baires MD [address] [place] [address] Referral ID Status Reason Start Date Expiration Date V isits Requested Visits Authorized [id number] Authorized Precert 07/13/2023 [id number] Reason for Visit * Reason Comments NEW PATIENT Elevated HR, sweatin g, anxious feeling. Sx started with . Recent labs showed anemia, started Vitron-C about 3 weeks with improvement in symptoms. States she is an anxious person and HR typically runs high. * Evaluate & Treat - Unlimited Visits (Within 10 days (routine)) - Authorized Specialty Diagnoses / Procedures Referred By Contact Referred To Contact Cardiovascular Medicine / Cardiology Diagnoses Tachycardia Erica Anderson CNM [address] [facility] [place] [address] Referral ID Status Reason Start Date Expiration Date Visits Requested Visits Authorized [id number] Authorized Specialty Services Required 06/22/2023 07/02/2024 [id number] Encounter Details Date Type Department Care Team (Late st Contact Info) Description 07/12/2023 2:00 PM EDT Office Visit Cardiology, [facility] [address] [place] [address] Willian Baires MD [address] [place] [address] Sinus tachycardia* Allergies Active Allergy Reactions Criticality Noted Date [...] HFA 108 (90 Base) MCG/ACT Inhalation Aerosol SolutionIndication s:Mild persistent extrinsic asthma without complication INHALE 2 PUFFS BY MOUTH 4 TIMES A DAY. 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 18 g 3 02/07/2022 Active Clindamycin Phos-Benzoyl Perox 1-5 % External GelIndications:Cys tic acne Apply topically to affected area 2 [...] needed for Constipation. 60 Capsule 5 06/23/2023 Discontinue d(End of Procedure) documented as of this encounter (statuses as [...] in the Last Year Never true 10/30/2018 Sibley Depression Scale Answer Date Recorded S[place]y Depression Scale Total 4 07/06/2023 The thought [...] Sign Reading Time Taken Comments Blood Pressure 134/72 07/12/2023 2:05 PM EDT Pulse 120 07/12/2023 2:05 PM EDT Temperature - - Respiratory Rate 12 07/12/2023 2:05 PM EDT Oxygen Saturation - - Inhaled Oxygen Concentration - - Weight 68 kg (149 lb 14.4 oz) 07/12/2023 2:05 PM EDT Height - - Body Mass Index 26.56 06/22/2023 10:55 AM EST documented in this encounter Progress Notes * Willian Baires MD - 07/12/2023 2:00 PM EDT Cardiology Consultation [facility] [place] 07/12/2023 Reason for Consultation: Sinus tachycardia Provider Requesting Consultation: PCP: KEVIN HECTOR [address] [place] [address] History of Present Illness: Rola Riley is a 33 year old year old female recently evaluated as part of ongoing management at 26 weeks' gestation. Notes was having episodes of nausea and heart pounding elevated heart rate found on examination with EKG reflecting sinus tachycardia. Evaluation included laboratory testing demonstrating anemia with iron deficiency, duplex lower extremity excluding DVT and mildly edematous left leg Patient referred now for further evaluation Patient accompanied by who aids in history. Both notes history of elevated heart rates in the past prior to No prior history of structural heart disease, rheumatic fever scarlet fever renal or hepatic disease. No history of TIA or stroke. Denies fevers chills or unexplained infections. Physically active onjob Appetite currently diminished with mild nausea attempting to maintain good hydration. No history of hypertension, diabetes mellitus pre or during Patient did begun iron supplements approximately 3 weeks ago and does feel she is improved but has been experiencing GI upset from medication. A Complete Review of Systems is as stated above or negative. Past Medical History: Patient Active Problem List Diagnosis Code EXTRINSIC ASTHMA, -EXERCISE INDUCED J45.909 Idiopathic scoliosis M41.20 Genetic testing Z13.79 Screening for genetic disease carrier status Z13.71 Anxiety F41.9 Irritable bowel syndrome K58.9 Normal Z34.90 AMA (advanced maternal age) multigravida 35+ O09.529 Rh negative status during O26.899, Z67.91 Maternal asthma complicating O99.519, J45.909 Past Surgical History: Procedure Laterality Date REMOVE PILONIDAL CYST, COMPLEX N/A 10/04/2019 EXCISION OF PILONIDAL CYST SINUS COMPLICATED performed by Ismael Griffiths MD at [facility] Family History: Family History Problem Relation Age of Onset Ulcerative colitis Mother uc, bowel obstruction Anxiety Disorder Mother Hyperlipidemia Father Irritable Bowel Syndrome Sister lactose intolerance Diabetes Grandmother (Paternal) Other (none[Other]) Other Social History: Social History Socioeconomic History Marital status: Spouse name: Gal Number of children: Not on file Years of education: Not on file Highest education level: Not on file Occupational History Comment: [employer] Tobacco Use Smoking status: Never Smokeless tobacco: Never Tobacco comments: mom, step dad smokes in house Vaping Use Vaping Use: Never used Substance and Sexual Activity Alcohol use: Not Currently Comment: rare Drug use: No Sexual activity: Yes Partners: Male Other Topics Concern Not on file Social History Narrative Not on file Social Determinants of Health Financial Resource Strain: Not on file Food Insecurity: No Food Insecurity (10/30/2018) Hunger Vital Sign Worried About Running Out of Food in the Last Year: Never true Ran Out of Food in the Last Year: Never true Transportation Needs: Not on file Physical Activity: Not on file Stress: Not on file Social Connections: Not on file Intimate Partner Violence: Not on file Housing Stability: Not on file Allergies: Lactose, Erythromycin base, Penicillins, and Rynatan [chlorpheniramine-phenylephrine] Medications: Current Outpatient Medications Medication Sig Dispense Refill [...] mouth in the morning. 90 Tablet 1 No current facility-administered medications for this visit. OBJECTIVE/PHYSICAL EXAMINATION: BP 134/72 (BP Site: Left Arm, BP Position: Sitting, BP Cuff Size: Regular) | Pulse 120 | Resp 12 | Wt 68 kg (149 lb 14.4 oz) | LMP 12/19/2022 | BMI 26.56 kg/m | BSA 1.74 m General: Age-appropriate female in no acute distress Head: normocephalic, no masses, lesions, tenderness or abnormalities Eyes: conjunctiva are pink and non-injected, sclera clear Throat: clear Nares: without discharge Neck: supple, no adenopathy, normal jugular venous pulse, no hepatojugular reflux, no carotid bruits Chest: normal shape and normal respiratory effort Lungs: clear to auscultation and percussion Cardiac Exam: - regular rate & rhythm, no murmur, gallop or rub - normal S-1, normal S-2 Abdomen: abdomen soft, non-tender, appropriate distention for age of gestation no abnormal masses, no hepatosplenomegaly, no abdominal bruit, no femoral bruit Musculoskeletal: no gait disturbance, no joint inflammation, no deforming arthritis Extremities: Trace left lower extremity edema, no cyanosis, pulses intact 2+/4 Neuro: grossly normal exam Data: EKG June 22, 2023 Sinus tachycardia, rate 129 beats per minute with normal tracing, no pre-excitation IMPRESSION: 33 year old year old female presents now at 29 weeks' gestation of 1st for evaluation of sinus tachycardia. Patient due date September 25, 2023 Patient notes feeling somewhat improved since initiating iron therapies for anemia but remains tachycardic. In discussion with patient sinus tachycardia pre dates No prior history of structural heart disease RECOMMENDATIONS/PLAN: In essence of completeness will order echocardiogram no audible abnormalities on physical examination CBC to assess anemia exclude further decline in hemoglobin. Blood pressure is mildly elevated today but likely in association with visit. Urinalysis ordered assess for proteinuria Discussed management with patient maintaining good hydration and oral intake Would not initiate medication to reduce heart rate unless persistently symptomatic. Discussed use of beta-blockers in Patient advised to call with any questions or concerns and to report to the ER with any and all emergencies. Disposition: Routine appointment scheduled echocardiogram to be done tomorrow Willian Baires MD Cardiology, [address] [address] documented in this encounter Nursing Notes * Lesly Gloria CMA - 07/12/2023 2:18 PM EDT Chief Complaint Patient presents with NEW PATIENT Elevated HR, sweating, anxious feeling. Sx started with . Recent labs showed anemia, started Vitron-C about 3 weeks with improvement in symptoms. States she is an anxious person and HR typically runs high. Examination Room: 13 Name: Rola Riley Date of : (1990). Reason for Visit: New patient Interim Hospitalization(s): none Problems/Concerns: see chief complaint Chest Pain/SOB: denies unusual SOB [facility] Discussed: No [facility] is a way you can talk to your provider online through e-mail. Would you like to sign up? I can activate it for you? ALREADY ACTIVE Patient was instructed to not get up on the exam table until directed and assisted by their provider; patient is to remain seated in the chair/ wheelchair/ exam table for fall prevention and safety reasons. Patient is aware to have assistance to step down off exam table with personnel. Patient voiced full comprehension of instructions. documented in this encounter Plan of Treatment Upcoming Encounters Date Type Department Care Team (Late st Contact Info) Description 07/13/2023 7:00 AM EDT Cardiac Studies Cardiac Studies, [facility] [address] [facility] [place] [address] 07/20/2023 11:45 AM EDT Office Visit Gynecology/Obstetrics [facility] [address] [place] [address] Nay Nieves MD [address] [place] [address] 08/02/2023 8:45 AM EDT Office Visit Gynecology/Obstetrics [facility] [address] [facility] [place] [address] Yarely Goldstein, KIMBER, CNM [address] [facility] [address] 08/09/2023 3:00 PM EDT Office Visit Cardiology, [facility] [address] [place] [address] Candy Cordova PA-C [address] [place] [address] 08/15/2023 8:45 AM EDT Office Visit Gynecology/Obstetrics [facility] [address] [place] [address] Gail Peterson CRNP [address] [place] [address] 09/01/2023 8:30 AM EDT Office Visit Gynecology/Obstetrics Zonia Dixon [address] [place] [address] Gail Peterson CRNP [address] [place] [address] Pending Results Name Type Priority Associated Diagnoses Date /Time URINALYSIS, REFLEX TO MICROSCOPIC Lab Routine Sinus tachycardia 07/12/2023 3:08 PM EDT Scheduled Orders Name Type Priority Associated Diagnoses Orde r Schedule URINALYSIS, REFLEX TO MICROSCOPIC Lab Routine Sinus tachycardia Expected: 07/12/2023, Expires: 07/11/2024 ECHO, COMPLETE (2D), TRANS-THORACIC Echocardiology Routine Sinus tachycardia Expected: 07/13/2023 (Approximate), Expires: 08/11/2025 Health Maintenance Due Date Last Done Comments [...] Not on filedocumented as of this encounter Results * BASIC METABOLIC PANEL (07/12/2023 3:04 PM EDT) BUN 6 6 - 20 mg/dL 07/12/2023 4:59 PM EDT [facility] [place] [facility] Creatinine 0.6 0.5 - 1.0 mg/dL 07/12/2023 4:59 PM EDT [facility] [place] [facility] Estimated Glomerular Filtration Rate >90 >=60 mL/min 07/12/2023 4:59 PM EDT [facility] [place] [facility] Comment:eGFR is calculated b ased on the CKD-EPI 2020 equation Sodium 138 135 - 146 mmol/L 07/12/2023 4:59 PM EDT [facility] [place] [facility] Potassium 3.8 3.5 - 5.1 mmol/L 07/12/2023 4:59 PM EDT [facility] [place] [facility] Chloride 103 98 - 107 mmol/L 07/12/2023 4:59 PM EDT [facility] [place] [facility] CO2 23 22 - 32 mmol/L 07/12/2023 4:59 PM EDT [facility] [place] [facility] Anion Gap 12 7 - 15 mmol/L 07/12/2023 4:59 PM EDT [facility] [place] [facility] Glucose 106 70 - 120 mg/dL 07/12/2023 4:59 PM EDT [facility] [place] [facility] Calcium 8.7 8.4 - 10.2 mg/dL 07/12/2023 4:59 PM EDT [facility] [place] [facility] Blood Venous blood specimen / Unknown Venipuncture / Unknown 07/12/2023 3:04 PM EDT 07/12/2023 3:04 PM EDT Willian Baires MD LAB BLOOD ORDERABLES [facility] [place] [facility] [address] [place] [address] documented in this encounter Visit Diagnoses Diagnosis Sinus tachycardia- Primary Other specified cardiac dysrhythmias documented in this encounter Advance Directives Latest Code Status on File Code Status Date Activated Date Inactivated Comments Full Code 10/04/2019 12:16 PM 10/04/2019 6:39 PM This order reflects the patients wishes and were consensually agreed upon. Care Teams Senior Systems Administrator Relationship Specialty Start Date End Date Kevin Hector MD [address] [place] [facility] [place] [address] PCP - General Family Medicine 06/14/22 documented as of this encounter
--- OUTSIDE RECORDS SUMMARY | 2023-09-21 23:44 | External Medical Summary | Summary of Care ---
Author Name Unknown Organization [facility] Address [address] [facility] [place] [address] Phone [phone] Care Team Providers Care Leisure Travel Agent Name Role Phone Shelby Hector MD Primary Care Provid er Reason for Visit * Reason Onset Date Comments Test Results 07/17/2023 Encounter Details Date Type Department Care Team (Late st Contact Info) Description 07/17/2023 Telephone Cardiology, [facility] [address] [place] [address] Willian Baires MD [address] [place] [id number] Test Results Allergies Active Allergy Reactions Criticality Noted Date [...] in the Last Year Never true 10/30/2018 [place] Depression Scale Answer Date Recorded [place] Depression Scale Total 4 07/06/2023 The thought [...] encounter Miscellaneous Notes * Telephone Encounter - Maya Dodd CMA - 07/17/2023 3:33 PM EDT My g sent. * Telephone Encounter - Maya Dodd CMA - 07/17/2023 3:32 PM EDT ----- Message from Willian Baires MD sent at 07/13/2023 5:16 PM EDT ----- Heart function and valve structures are normal, good Laboratory studies demonstrate normal kidney function and electrolytes Anemia is still present Trace protein urine make sure is rechecked at next visit. Check blood pressure daily documented in this encounter Plan of Treatment Upcoming Encounters Date Type Department Care Team (Late st Contact Info) Description 07/19/2023 4:00 PM EDT Pharmacy Pharmacy, [place] [address] [place], [place] [id number] Clinic, [facility] [address] [place], [place] [phone] 07/20/2023 11:45 AM EDT Office Visit Gynecology/Obstetrics [facility] [address] [place] [phone] Nay Nieves MD [address] [place], [place] [id number] 08/02/2023 8:45 AM EDT Office Visit Gynecology/Obstetrics [facility] [address] [address] Yarely Goldstein, KIMBER, CNM [address] [facility] [place] [address] 08/09/2023 3:00 PM EDT Office Visit Cardiology, [facility] [address] [place], [place] [id number] Candy Cordova PA-C [address] [place] [address] 08/15/2023 8:45 AM EDT Office Visit Gynecology/Obstetrics [facility] [address] [place] [address] Gail Peterson CRNP [address] [place] [address] 09/01/2023 8:30 AM EDT Office Visit Gynecology/Obstetrics Zonia Dixon [address] [place] [address] Backer, SAVI Larsen [address] [place] [address] Health Maintenance Due Date Last Done Comments [...] and were consensually agreed upon. Care Teams Leisure Travel Agent Relationship Specialty Start Date End Date Shelby Hector MD [address] [place] [address] PCP - General Family Medicine 06/14/22 documented as of this encounter
--- OUTSIDE RECORDS SUMMARY | 2023-09-21 23:45 | External Medical Summary ---
Author Name Unknown Address Unknown Organization [id number]:[facility] - [address] [place] [address] Laboratory Report Ordering Provider Test Date Status ALETHA GUZMÁN 06/22/2023 11:37:40 Final Observation Date Value Abnormality Reference (Units ) Status Creatinine 06/22/2023 11:37:40 0.5 0.5-1.0 (mg/dL) Final Glomerular filtration rate/1.73 sq M.predicted [Volume Rate/Area] in Serum, Plasma or Blood by Creatinine-based formula (CKD-EPI) 06/22/2023 11:37:40 >90 >=60 (mL/min) Final eGFR is calculated based on the CKD-EPI 2020 equation Performing Location [facility] - [address] [place] [address]
--- OUTSIDE RECORDS SUMMARY | 2023-09-21 23:45 | External Medical Summary ---
Author Name Unknown Address Unknown Organization K01:[facility] - [address] [place] [address] Laboratory Report Ordering Provider Test Date Status ALETHA GUZMÁN 06/22/2023 11:37:40 Final Observation Date Value Abnormality Reference (Units ) Status Ferritin 06/22/2023 11:37:40 9 Below low normal 13- 150 (ng/mL) Final Performing Location [facility] - [address] [place] [address]
--- OUTSIDE RECORDS SUMMARY | 2023-09-21 23:45 | External Medical Summary | Summary of Care ---
Author Name Unknown Organization [facility] Address [address] [facility] [place] [address] Phone [phone] Care Team Providers Care Corncob [employer] Manufacturing Supervisor Name Role Phone Shelby Hector MD Primary Care Provid er Reason for Visit * Reason Onset Date Comments anemia 06/23/2023 Encounter Details Date Type Department Care Team (Late st Contact Info) Description 06/23/2023 Telephone [facility] Gynecology and Obstetrics [address] [place], [place] [phone] Erica Anderson [facility] [address] [place], [place] [phone] anemia Allergies Active Allergy Reactions Criticality Noted Date Comments Erythromycin Base 06/04/2002 rash Lactose Other (Please comment) High 08/04/2015 Dietary. Lactose intolerant, Severe G.I. Intolerance. Penicillins 05/18/1999 "As a child, unsure of reaction." Chlorpheniramine-Phenyl ephrine Rash Low 10/29/2010 documented as of this encounter (statuses as of 06/23/2023) Medications Medication Sig Dispensed Refills Start Date [...] for Constipation. 60 Capsule 5 06/23/2023 Active documented as of this encounter (statuses as of 06/23/2023) Active Problems Problem Noted Date Diagnosed Date [...] as of this encounter (statuses as of 06/23/2023) Resolved Problems Problem Noted Date Diagnosed Date Resolved Date Pilonidal cyst 08/17/2010 09/26/2016 CELLULITIS OF BUTTOCK, RIGHT UPPER 08/17/2010 07/15/2016 STREP SORE THROAT 06/04/2002 07/15/2016 ACUTE URI NOS 06/04/2002 07/15/2016 documented as of this encounter (statuses as of 06/23/2023) Immunizations Name Administration Dates Next Due PPD 12/08/2015 Season Influenza, Cell Cultu re, 18+ Yrs, With Preserv (Flucelvax) 01/22/2014 Seasonal Influenza, Quadriva lent, No Preserve, IM 01/27/2016 Seasonal Influenza, Split, I IV3, With Preserve, Inj 01/16/2015,02/18/2014,01/25/2010 TDAP (age 11 and older)(Adacel) 03/17/2010 documented [...] in the Last Year Never true 10/30/2018 [place] Depression Scale Answer Date Recorded [place] Depression Scale Total 6 03/01/2023 The thought of harming myself has occurred to me . Never 03/01/2023 Estimated Date of Delivery Comme nts Yes [...] encounter Miscellaneous Notes * Telephone Encounter - Erica Anderson CNM - 06/23/2023 10:42 AM EST Called patient. Rx sent for Vitron C PO BID. Instructed patient to take this at least 2 hours apartfrom her PNV and any calcium and dairy. Patient reports that her "heart racing" feeling is better today than yesterday. Reports feeling generalized weakness. Discussed that anemia can make her feel this way, but she should let us know if ongoing or worsening. Cardiology consult is pending. Also notified patient that her vascular doppler study of the LLE showed no evidence of acute DVT. Patient verbalized understanding. Erica Anderson CNM 06/23/23 10:48 AM documented in this encounter Plan of Treatment Upcoming Encounters Date Type Department Care Team (Late st Contact Info) Description 07/06/2023 9:00 AM EDT Laboratory Laboratory, [facility] [address] [place] [phone] [facility] [address] [place] [address] 07/06/2023 9:15 AM EDT Office Visit Gynecology/Obstetrics Zonia Dixon [address] [place] [address] [place], SAVI Larsen [address] [place] [address] Health Maintenance Due Date Last Done Comments Pneumococcal Vaccine: Pediatrics (0 to 5 Years) and At-Risk Patients (6 to 64 Years) (1 of 2 - PCV) 02/04/1994 Depression Screening 10/31/2019 10/30/2018 DTaP,Tdap,and Td Vaccines (7 - Td or Tdap) 03/17/2020 03/17/2010, 02/09/1999, 02/09/1999, Additional history exists COVID-19 Vaccine ( - season) 2022 Influenza Vaccine (FLU shot) (#1) 2022 07/10/2017 (Declined), 01/27/2016, 01/16/2015, Additional history exists Pap Smear 03/01/2026 03/01/2023, 09/23, 10/07/2016, Additional history exists Cervical Cancer Screening 03/01/2028 HPV/Co-Test 03/01/2028 03/01/2023 Hepatitis B Completed 06/15/1999, 01/22, 11/16/1998 GARDASIL-HPV [...] and were consensually agreed upon. Care Teams Corncob [employer] Supervisor Relationship Specialty Start Date End Date Shelby Hector MD [address] [facility] [place] [address] PCP - General Family Medicine 06/14/22 documented as of this encounter
--- OUTSIDE RECORDS SUMMARY | 2023-09-21 23:45 | External Medical Summary | Summary of Care ---
Author Name Unknown Organization [facility] Address [address] [facility] [place] [address] Phone [phone] Care Team Providers Care Test Technician Name Role Phone Shelby Hector MD Primary Care Provid er Reason for Visit * Reason Comments Outpatient Testing Encounter Details Date Type Department Care Team (Late st Contact Info) Description 04/27/2023 9:50 AM EST Laboratory Laboratory, [facility] [address] [place] [address] [facility] [address] [place] [address] Normal in second trimester Allergies Active Allergy Reactions Criticality Noted Date Comments Erythromycin Base 06/04/2002 rash Lactose Other (Please comment) High 08/04/2015 Dietary. Lactose intolerant, Severe G.I. Intolerance. Penicillins 05/18/1999 "As a child, unsure of reaction." Chlorpheniramine-Phenyl ephrine Rash Low 10/29/2010 documented as of this encounter (statuses as of 04/27/2023) Medications Medication Sig Dispensed Refills Start Date End Date Status Vitamin 27-0.8 MG Oral Tablet Take by mouth daily . 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 0 Active documented as of this encounter (statuses as of 04/27/2023) Active Problems Problem Noted Date Diagnosed Date [...] as of this encounter (statuses as of 04/27/2023) Resolved Problems Problem Noted Date Diagnosed Date Resolved Date Pilonidal cyst 08/17/2010 09/26/2016 CELLULITIS OF BUTTOCK, RIGHT UPPER 08/17/2010 07/15/2016 STREP SORE THROAT 06/04/2002 07/15/2016 ACUTE URI NOS 06/04/2002 07/15/2016 documented as of this encounter (statuses as of 04/27/2023) Immunizations Name Administration Dates Next Due PPD [...] in the Last Year Never true 10/30/2018 [place] Depression Scale Answer Date Recorded [place] Depression Scale Total 6 03/01/2023 The thought [...] Care Team (Late st Contact Info) Description 05/10/2023 9:15 AM EST Imaging Radiology [facility] [address] [place] [address] 05/25/2023 10:15 AM EST Office Visit Gynecology/Obstetrics [facility] [address] [place] [address] Nehal Mendoza CRNP [address] [place] [address] Pending Results Name Type Priority Associated Diagnoses Date /Time MATERNAL SERUM AFP Lab Routine Normal in second trimester 04/27/2023 9:35 AM EST Health Maintenance Due Date Last Done Comments COVID-19 Vaccine (#1) 1988 Pneumococcal Vaccine: Pediatrics (0 to 5 Years) and At-Risk Patients (6 to 64 Years) (1 - PCV) 02/04/1994 Depression Screening 10/31/2019 10/30/2018 DTaP,Tdap,and Td Vaccines (7 - Td or Tdap) 03/17/2020 03/17/2010, 02/09/1999, 02/09/1999, Additional history exists Influenza Vaccine (FLU shot) (#1) 2022 07/10/2017 [...] this encounter Visit Diagnoses Diagnosis Normal in second trimester documented in this encounter Advance Directives Latest Code Status on File Code Status Date Activated Date Inactivated Comments Full Code 10/04/2019 12:16 PM 10/04/2019 6:39 PM This order reflects the patients wishes and were consensually agreed upon. Care Teams Test Technician Relationship Specialty Start Date End Date Shelby Hector MD [address] [facility] [place] [address] PCP - General Family Medicine 06/14/22 documented as of this encounter
--- OUTSIDE RECORDS SUMMARY | 2023-09-21 23:45 | External Medical Summary | Summary of Care ---
Author Name Unknown Organization [facility] Address [address] [facility] [place] [address] Phone [phone] Care Team Providers Care Counter Clerk [employer] Name Role Phone Shelby Hector MD Primary Care Provid er Reason for Referral * Evaluate & Treat - Unlimited Visits (Within 10 days (routine)) - Authorized Specialty Diagnoses / Procedures Referred By Contact Referred To Contact Cardiovascular Medicine / Cardiology Diagnoses Tachycardia Erica Anderson CNM [address] [place] [address] Referral ID Status Reason Start Date Expiration Date Visits Requested Visits Authorized [id number] Authorized Specialty Services Required 06/22/2023 999 999 Question Answer Referral Priority Within 10 days (routine) Where should this appointment be scheduled? [facility] To which of the following clinics are you referring your patient? General Cardiology Clinic Comments Tachycardia in , feeling like heart is racing. HR 120s-140s. Reason for Visit * Reason Comments Return Visit Encounter Details Date Type Department Care Team (Late st Contact Info) Description 06/22/2023 10:45 AM EST Office Visit Gynecology/Obstetric [facility] [address] [facility] [place] [address] Erica Anderson CNM [address] [place] [phone] Normal in third trimester*; Multigravida of advanced maternal age in third trimester; Rh negative status during in second trimester; Maternal asthma complicating ; Swelling of lower leg; Tachycardia Allergies Active Allergy Reactions Criticality Noted Date Comments Erythromycin Base 06/04/2002 rash Lactose Other (Please comment) High 08/04/2015 Dietary. Lactose intolerant, Severe G.I. Intolerance. Penicillins 05/18/1999 "As a child, unsure of reaction." Chlorpheniramine-Phenyl ephrine Rash Low 10/29/2010 documented as of this encounter (statuses as of 06/22/2023) Medications Medication Sig Dispensed Refills Start Date [...] as of this encounter (statuses as of 06/22/2023) Active Problems Problem Noted Date Diagnosed Date [...] as of this encounter (statuses as of 06/22/2023) Resolved Problems Problem Noted Date Diagnosed Date Resolved Date Pilonidal cyst 08/17/2010 09/26/2016 CELLULITIS OF BUTTOCK, RIGHT UPPER 08/17/2010 07/15/2016 STREP SORE THROAT 06/04/2002 07/15/2016 ACUTE URI NOS 06/04/2002 07/15/2016 documented as of this encounter (statuses as of 06/22/2023) Immunizations Name Administration Dates Next Due PPD [...] in the Last Year Never true 10/30/2018 [place] Depression Scale Answer Date Recorded [place] Depression Scale Total 6 03/01/2023 The thought [...] Sign Reading Time Taken Comments Blood Pressure 120/70 06/22/2023 10:55 AM EST Pulse 143 06/22/2023 10:55 AM EST Temperature - - Respiratory Rate - - Oxygen Saturation - - Inhaled Oxygen Concentration - - Weight 63 kg (139 lb) 06/22/2023 10:55 AM EST Height 160 cm (5' 2.99") 06/22/2023 10:55 AM EST Body Mass Index 24.63 06/22/2023 10:55 AM EST documented in this encounter Progress Notes * Erica Anderson CNM - 06/22/2023 10:53 AM EST Rola Riley is a 33 year old female here for her routine OB appointment at 26w3d Her Estimated Date of Delivery: 09/25/23 REVIEW OF SYSTEMS: She affirms movement. Denies vaginal bleeding, LOF, contractions, headaches, vision changes, and RUQ pain. Reports an increase in pelvic pressure and occasional transient muscle spasms. Last night, patient felt that her heart was beating fast. Her checked her pulse manually which was about 108bpm. States she felt anxious because she has been nauseated the last few days and not eating very much. She has been staying well hydrated. Denies chest pain and shortness of breath. States that several years ago she had a pilonidal cyst removed surgically and was told her heart rate was in the 130s either during or shortly after the procedure. Also reports left foot/ankle swelling. Denies pain, redness, warmth in either leg. Denies any calf pain bilaterally. She takes magnesium for muscle cramps, vitamin, and omeprazole. She has not used her albuterol inhaler in the last few months. Patient also asking about work restrictions. She does a lot of bending and lifting at her job. Asking specifically about the bending, since the lifting is not heavy. PHYSICAL EXAM: Filed Vitals: 06/22/23 1055 BP: 120/70 Pulse: 143 Weight: 63 kg (139 lb) Height: 1.6 m (5' 2.99") +FHT 150-160bpm Fundal height: 27cm ASSESSMENT/PLAN: (O09.523) Multigravida of advanced maternal age in third trimester (O26.892, Z67.91) Rh negative status during in second trimester Plan: -Rhogam after type and screen at next visit in 2 weeks (O99.519, J45.909) Maternal asthma complicating Plan: -Patient has not required her inhaler in the last few months but has one to be used prn. (M79.89) Swelling of lower leg Plan: VASC DUPLEX VENOUS LE UNILAT -Left lower extremity doppler to be done today to rule out DVT in the setting of lower extremity swelling and tachycardia. -Reviewed warning signs of DVT (R00.0) Tachycardia Plan: CBC WITH WBC DIFFERENTIAL AND ANEMIA REFLEX WORKUP, EKG, VASC DUPLEX VENOUS LE UNILAT, CARDIOLOGY REFERRAL OP -CBC ordered to be done today -EKG ordered to be done today -Lower leg doppler ordered to be done today -Cardiology consult -Instructed patient to present to ED with any chest pain or shortness of breath -HR was initially 143bpm, then decreased to 129bpm at the end of today's visit. (Z34.93) Normal in third trimester (primary encounter diagnosis) Plan: 50-G GESTATIONAL GLUCOSE, 1 HOUR, TYPE AND SCREEN, SYPHILIS ANTIBODY SCREEN WITH REFLEX TO RPR, VASC DUPLEX VENOUS LE UNILAT -reviewed comfort measures of such a belly band - reviewed and ordered GTT and syphilis screen for patient to complete between now and her next visit -recommended avoiding repetitive lifting at work; provided OB restrictions letter -CBC to be done today for - reviewed recommendation for tdap vaccine at next visit - rhogam at next visit - RTO in 4 weeks Erica Anderson CNM documented in this encounter Nursing Notes * Suzy High LPN - 06/22/2023 10:54 AM EST 26w3d [place] documented in this encounter Plan of Treatment Upcoming Encounters Date Type Department Care Team (Late st Contact Info) Description 06/22/2023 1:15 PM EST Cardiac Studies Cardiac Studies, [facility] [address] [place] [address] Normal ; AMA (advanced maternal age) multigravida 35+ 06/22/2023 2:15 PM EST Imaging Radiology, [address] [place] [address] 07/06/2023 9:00 AM EDT Laboratory Laboratory, [facility] [address] [facility] [place] [phone] [facility] [address] [facility] [place] [address] 07/06/2023 9:15 AM EDT Office Visit Gynecology/Obstetri cs [facility] [address] [facility] [place] [address] Gail Peterson CRNP [address] [facility] [place] [address] Pending Results Name Type Priority Associated Diagnoses Date /Time CBC WITH WBC DIFFERENTIAL AND ANEMIA REFLEX WORKUP Lab Routine AMA (advanced maternal age) multigravida 35+ 06/22/2023 11:37 AM EST Scheduled Orders Name Type Priority Associated Diagnoses Orde r Schedule 50-G GESTATIONAL GLUCOSE, 1 HOUR Lab Routine Normal in third trimester Expected: 06/22/2023, Expires: 06/21/2024 TYPE AND SCREEN Lab Routine Normal in third trimester Expected: 06/29/2023 (Approximate), Expires: 07/20/2024 SYPHILIS ANTIBODY SCREEN WITH REFLEX TO RPR Lab Routine Normal in third trimester Expected: 06/29/2023, Expires: 06/21/2024 CBC WITH WBC DIFFERENTIAL AND ANEMIA REFLEX WORKUP Lab Routine Tachycardia Expected: 06/29/2023 (Approximate), Expires: 06/21/2024 VASC DUPLEX VENOUS LE UNILAT Medical Imaging STAT Normal in third trimester Swelling of lower leg Tachycardia Expected: 06/22/2023, Expires: 07/20/2024 Scheduled Referrals Name Type Priority Associated Diagnoses Orde r Schedule CARDIOLOGY REFERRAL OP Referral Within 10 days (routine) Tachycardia Ordered: 06/22/2023 Health Maintenance Due Date Last Done Comments [...] filedocumented as of this encounter Results * EKG (06/22/2023 11:54 AM EST) 06/22/2023 11:5 4 AM EST Narrative Procedure Note Boyd Sharma DO - 06/22/2023 11:54 AM EST REASON FOR STUDY: tachycardia;tachycardia CONCLUSIONS: Sinus tachycardia Otherwise normal ECG No previous ECGs available Ventricular Rate: 129 Atrial Rate: 129 FL Interval: 130 QRS Duration: 78 QT/QTc: 296/433 ms P-R-T [place]: 59 : 71 : 21 degrees Erica Anderson CNM EKG Performing Organization Address City/State/[facility] [place] Phone Number [facility] documented in this encounter Visit Diagnoses Diagnosis Normal in third trimester- Primary Multigravida of advanced maternal age in third trimester Rh negative status during in second trimester Maternal asthma complicating Other current maternal conditions classifiable elsewhere, complicating , childbirth, or the puerperium, unspecified as to episode of care Swelling of lower leg Tachycardia Tachycardia, unspecified Normal state, incidental AMA (advanced maternal age) multigravida 35+ Elderly multigravida unspecified as to episode of care or not applicable documented in this encounter Advance Directives Latest Code Status on File Code Status Date Activated Date Inactivated Comments Full Code 10/04/2019 12:16 PM 10/04/2019 6:39 PM This order reflects the patients wishes and were consensually agreed upon. Care Teams Counter Clerk [employer] Relationship Specialty Start Date End Date Shelby Hector MD [address] [place] [address] PCP - General Family Medicine 06/14/22 documented as of this encounter
--- OUTSIDE RECORDS SUMMARY | 2023-09-21 23:45 | External Medical Summary | Summary of Care ---
Author Name Unknown Organization [facility] Address [address] [facility] [place] [address] Phone [phone] Care Team Providers Care Spray Worker Name Role Phone Shelby Hector MD Primary Care Provid er Reason for Visit * Reason Comments Return Visit Encounter Details Date Type Department Care Team (Late st Contact Info) Description 04/27/2023 9:15 AM EST Office Visit Gynecology/Obstetric s Zonia Dixon [address] [place] [address] Gail Peterson CRNP [address] [place] [address] Normal in second trimester*; Multigravida of advanced maternal age in second trimester; Rh negative status during in second trimester; Maternal asthma complicating Allergies Active Allergy [...] in the Last Year Never true 10/30/2018 [place] Depression Scale Answer Date Recorded [place] Depression Scale Total 6 03/01/2023 The thought [...] Sign Reading Time Taken Comments Blood Pressure 114/60 04/27/2023 9:14 AM EST Pulse - - Temperature - - Respiratory Rate - - Oxygen Saturation - - Inhaled Oxygen Concentration - - Weight 60.8 kg (134 lb) 04/27/2023 9:14 AM EST Height - - Body Mass Index 23.74 08/29/2022 3:06 PM EDT documented in this encounter Progress Notes * Barbi Garcia LPN - 04/27/2023 9:14 AM EST 18w3d Denies vaginal bleeding/rom + movement Dry lips/cracking * Gail Peterson CRNP - 04/27/2023 9:13 AM EST 18w3d No severe cramping or bleeding. Feeling baby move. Will get MSAFP today. Has anatomy scan scheduled. HEATH in 4 weeks. SAVI Peguero documented in this encounter Plan of Treatment Upcoming Encounters Date Type Department Care Team (Late st Contact Info) Description 04/27/2023 9:50 AM EST Laboratory Laboratory, [facility] [address] [facility] [place] [phone] [place] [address] Normal in second trimester 05/10/2023 9:15 AM EST Imaging Radiology [facility] [address] [facility] [address] [facility] [place] [address] 05/25/2023 10:15 AM EST Office Visit Gynecology/Obstetric s [facility] [address] [facility] [place] [address] Nehal Mendoza CRNP [address] [facility] [place] [address] Pending Results Name Type Priority Associated Diagnoses Date /Time MATERNAL SERUM AFP Lab Routine Normal in second trimester 04/27/2023 9:35 AM EST Scheduled Orders Name Type Priority Associated Diagnoses Orde r Schedule MATERNAL SERUM AFP Lab Routine Normal in second trimester Expected: 04/27/2023 (Approximate), Expires: 04/27/2024 Health Maintenance Due Date Last Done Comments [...] encounter Visit Diagnoses Diagnosis Normal in second trimester- Primary Multigravida of advanced maternal age in second trimester Rh negative status during in second trimester Maternal asthma complicating Other current maternal conditions classifiable elsewhere, complicating , childbirth, or the puerperium, unspecified as to episode of care Normal in second trimester documented in this encounter Advance Directives Latest Code Status on File Code Status Date Activated Date Inactivated Comments Full Code 10/04/2019 12:16 PM 10/04/2019 6:39 PM This order reflects the patients wishes and were consensually agreed upon. Care Teams Spray Worker Relationship Specialty Start Date End Date Shelby Hector MD [address] [facility] [place] [address] PCP - General Family Medicine 06/14/22 documented as of this encounter
--- OUTSIDE RECORDS SUMMARY | 2023-09-21 23:45 | External Medical Summary ---
Author Name Unknown Address Unknown Organization [id number]:LABORATORY [facility] - [address] [place] [address] Laboratory Report Ordering Provider Test Date Status ALETHA GUZMÁN 06/22/2023 11:37:40 Final Observation Date Value Abnormality Reference (Units ) Status Vitamin B12 06/22/2023 11:37:40 143 140-1012 (pg/mL) Final Performing Location LABORATORY [facility] - [address] [place] [address]
--- OUTSIDE RECORDS SUMMARY | 2023-09-21 23:45 | External Medical Summary ---
Author Name Unknown Address Unknown Organization [id number]:LABORATORY [facility] - [address] [place] [address] Laboratory Report Ordering Provider Test Date Status ALETHA GUZMÁN 06/22/2023 11:37:40 Final Observation Date Value Abnormality Reference (Units ) Status Folic Acid 06/22/2023 11:37:40 >20.0 >4.5 (ng/ mL) Final Performing Location LABORATORY [facility] - [address] [place] [address]
--- OUTSIDE RECORDS SUMMARY | 2023-09-21 23:45 | External Medical Summary ---
Author Name Unknown Address Unknown Organization [id number]:LABORATORY [facility] - [address] [place] [address] Laboratory Report Ordering Provider Test Date Status ALETHA GUZMÁN 07/06/2023 10:16:39 Final Observation Date Value Abnormality Reference (Units ) Status Treponema pallidum Ab [Presence] in Serum by Immunoassay 07/06/2023 10:16:39 Nonreactive Nonreactive Final No serologic evidence of syp hilis. No additional testing clinicially indicated at this time. Consider repeat testing in 2-4 weeks if acute or primary syphilis is suspected. Performing Location LABORATORY [facility] - [address] [place] [address]
--- OUTSIDE RECORDS SUMMARY | 2023-09-21 23:45 | External Medical Summary ---
Author Name Unknown Address Unknown Organization [id number]:LABORATORY [facility] - [address] [place] [address] Laboratory Report Ordering Provider Test Date Status ALETHA GUZMÁN 07/06/2023 10:16:39 Final Observation Date Value Abnormality Reference (Units ) Status ABO 07/06/2023 10:16:39 A Final RH 07/06/2023 10:16:39 Negative Final RED BLOOD CELL ANTIBODY SCREEN 07/06/2023 10:16:39 Negative Final SPECIMEN EXPIRATION DATE 07/06/2023 10:16:39 07/09/2023 23:59 Final Performing Location LABORATORY [facility] - [address] [place] [address]
--- OUTSIDE RECORDS SUMMARY | 2023-09-21 23:45 | External Medical Summary ---
Author Name Unknown Address Unknown Organization K01:LABORATORY [facility] [place] - [address] [place] [address] Laboratory Report Ordering Provider Test Date Status ARIELLEPOMPA 06/22/2023 11:37:40 Final Observation Date Value Abnormality Reference (Units ) Status Iron 06/22/2023 11:37:40 57 33-151 (ug/dL) Final Iron-binding capacity 06/22/2023 11:37:40 461 Above high normal 250-425 (ug/dL) Final Transferrin Sat % 06/22/2023 11:37:40 12 Below low normal 15-55 (%) Final Performing Location LABORATORY C - [address] [place] [address]
--- OUTSIDE RECORDS SUMMARY | 2023-09-21 23:45 | External Medical Summary | Summary of Care ---
Author Name Unknown Organization [facility] Address [address] [facility] [place] [address] Phone [phone] Care Team Providers Care Manager Of Data Name Role Phone Shelby Hector MD Primary Care Provid er Reason for Visit * Reason Comments Return Visit Encounter Details Date Type Department Care Team (Late st Contact Info) Description 05/25/2023 10:15 AM EST Office Visit Gynecology/Obstetric s Zonia Ruggieros [address] [place] [address] Nehal Mendoza CRNP [address] [place] [address] Normal in second trimester*; Multigravida of advanced [...] as of this encounter (statuses as of 05/25/2023) Medications Medication Sig Dispensed Refills Start Date [...] as of this encounter (statuses as of 05/25/2023) Active Problems Problem Noted Date Diagnosed Date [...] as of this encounter (statuses as of 05/25/2023) Resolved Problems Problem Noted Date Diagnosed Date Resolved Date Pilonidal cyst 08/17/2010 09/26/2016 CELLULITIS OF BUTTOCK, RIGHT UPPER 08/17/2010 07/15/2016 STREP SORE THROAT 06/04/2002 07/15/2016 ACUTE URI NOS 06/04/2002 07/15/2016 documented as of this encounter (statuses as of 05/25/2023) Immunizations Name Administration Dates Next Due PPD [...] in the Last Year Never true 10/30/2018 [place] Depression Scale Answer Date Recorded [place] Depression Scale Total 6 03/01/2023 The thought [...] Sign Reading Time Taken Comments Blood Pressure 112/62 05/25/2023 10:14 AM EST Pulse - - Temperature - - Respiratory Rate - - Oxygen Saturation - - Inhaled Oxygen Concentration - - Weight 62.1 kg (137 lb) 05/25/2023 10:14 AM EST Height 160 cm (5' 2.99") 05/25/2023 10:14 AM EST Body Mass Index 24.28 05/25/2023 10:14 AM EST documented in this encounter Progress Notes * Nehal Mendoza CRNP - 05/25/2023 10:29 AM EST 22w3d Having bill horses in legs at night. Constipated, discussed meds safe in . Baby is active. No contractions, bleeding, or LOF. SAVI Torres * Suzy High LPN - 05/25/2023 10:14 AM EST 22w3d Muscle cramps Bill horse in legs Constipated Safe for epsom salt baths for LE documented in this encounter Plan of Treatment Upcoming Encounters Date Type Department Care Team (Late st Contact Info) Description 06/22/2023 10:45 AM EST Office Visit Gynecology/Obstetrics [facility] 132 [facility] [place] [address] Erica Anderson, [address] [place] [address] 07/06/2023 9:00 AM EDT Laboratory Laboratory, [facility] 132 [facility] [place] [phone] DixonMikhail griffith [facility] [address] [facility] [place] [address] 07/06/2023 9:15 AM EDT Office Visit [facility]cology[facility] [address] [facility] [place] [address] Backer, SAVI Larsen 132 [facility] [place] [address] Health Maintenance Due Date Last Done Comments [...] and were consensually agreed upon. Care Teams Manager Of Data Relationship Specialty Start Date End Date Shelby Hector MD [address] [place] [address] PCP - General Family Medicine 06/14/22 documented as of this encounter
--- OUTSIDE RECORDS SUMMARY | 2023-09-21 23:45 | External Medical Summary ---
Author Name Unknown Address Unknown Organization [id number]:LABORATORY [facility] [place] - [address] [place] [address] Laboratory Report Ordering Provider Test Date Status ALETHA GUZMÁN 06/22/2023 11:37:40 Final Observation Date Value Abnormality Reference (Units ) Status Retic, % (auto) 06/22/2023 11:37:40 2.24 Above high normal 0.80-1.90 (%) Final Reticulocytes, Absolute 06/22/2023 11:37:40 77.7 31.3-100.1 (K/uL) Final Reticulocyte fraction, immature 06/22/2023 11:37:40 34.3 Above high normal 2.5-20.6 (%) Final Reticulocyte HGB 06/22/2023 11:37:40 28.3 Below low normal 29.7-37.4 (pg) Final Performing Location LABORATORY C - [address] [place] [address]
--- OUTSIDE RECORDS SUMMARY | 2023-09-21 23:45 | External Medical Summary ---
Author Name Unknown Address Unknown Organization K0G[facility] [address] [place] [address] Laboratory Report Ordering Provider Test Date Status ALETHA GUZMÁN 07/06/2023 10:16:39 Final Observation Date Value Abnormality Reference (Units ) Status Glucose [Moles/volume] in Serum or Plasma --1 hour post 50 g glucose PO 07/06/2023 10:16:39 108 70-129 (mg/dL) Final Performing Location LABORATORY [facility] - [address] [place] [address]
--- OUTSIDE RECORDS SUMMARY | 2023-09-21 23:45 | External Medical Summary | Summary of Care ---
Author Name Unknown Organization [facility] Address [address] [facility] [place] [address] Phone [phone] Care Team Providers Care Special Education Tutor Name Role Phone Shelby Hector MD Primary Care Provid er Reason for Visit * Reason Comments Outpatient Testing Encounter Details Date Type Department Care Team (Late st Contact Info) Description 06/22/2023 11:50 AM EST Laboratory Laboratory, [facility] [address] [place] [address] [facility] 132 [place] [address] AMA (advanced maternal age) multigravida 35+ Allergies Active Allergy Reactions Criticality Noted Date [...] in the Last Year Never true 10/30/2018 [place] Depression Scale Answer Date Recorded [place] Depression Scale Total 6 03/01/2023 The thought [...] 1:15 PM EST Cardiac Studies Cardiac Studies, [facility] [address] Normal ; AMA (advanced maternal age) multigravida 35+ 06/22/2023 2:15 PM EST Imaging Radiology, [address] [address] 07/06/2023 9:00 AM EDT Laboratory Laboratory, [facility] 132 [facility] [place] [phone] DixonMikhail griffith [address] [place] [address] 07/06/2023 9:15 AM EDT Office Visit Gynecology/Obstetri cs Zonia Dixon [address] [place] [address] Backer, SAVI Larsen [address] [place] [address] Pending Results Name Type Priority Associated Diagnoses Date /Time CBC WITH WBC DIFFERENTIAL AND ANEMIA REFLEX WORKUP Lab Routine AMA (advanced maternal age) multigravida 35+ 06/22/2023 11:37 AM EST ANEMIA CBC Lab Routine AMA (advanced maternal age) multigravida + 06/22/2023 11:37 AM EST DIFFERENTIAL, AUTOMATED Lab Routine AMA (advanced maternal age) multigravida + 06/22/2023 11:37 AM EST ANEMIA REFLEX CHEMISTRY HOLD Lab Routine AMA (advanced maternal age) multigravida + 06/22/2023 11:37 AM EST Health Maintenance Due Date Last Done Comments Pneumococcal Vaccine: Pediatrics (0 to 5 Years) and At-Risk Patients (6 to 64 Years) (1 of 2 - PCV) 02/04/1994 Depression Screening 10/31/2019 10/30/2018 DTaP,Tdap,and Td Vaccines (7 - Td or Tdap) 03/17/2020 03/17/2010, 02/09/1999, 02/09/1999, Additional history exists COVID-19 Vaccine ( season) 2022 Influenza Vaccine (FLU shot) (#1) [...] as of this encounter Visit Diagnoses Diagnosis AMA (advanced maternal age) multigravida 35+ Elderly multigravida unspecified as to episode of care or not applicable Normal state, incidental AMA (advanced maternal age) multigravida 35+ Elderly multigravida unspecified as to episode of care or not applicable documented in this encounter Advance Directives Latest Code Status on File Code Status Date Activated Date Inactivated Comments Full Code 10/04/2019 12:16 PM 10/04/2019 6:39 PM This order reflects the patients wishes and were consensually agreed upon. Care Teams Special Education Tutor Relationship Specialty Start Date End Date Shelby Hector MD [address] [place] [address] PCP - General Family Medicine 06/14/22 documented as of this encounter
--- OUTSIDE RECORDS SUMMARY | 2023-09-21 23:45 | External Medical Summary ---
Author Name Unknown Address Unknown Organization : Laboratory Report Ordering Provider Test Date Status TAYLORBACKER 04/27/2023 09:35:36 Final Observation Date Value Abnormality Reference (Units ) Status INTERPRETATION 04/27/2023 09:35:36 SEE BELOW Final Screen negative for open NTD . RISK FOR ONTD 04/27/2023 09:35:36 <1:5000 Final CALC'D GESTATIONAL AGE 0104/27/2023 09:35:36 18.4 Final AFP, SERUM 04/27/2023 09:35:36 49.5 (ng/mL) Final AFP MOM 04/27/2023 09:35:36 0.97 Final Reference Range:
NTD < 2.50
IDD <1.90
TWINS <4.00
TWINS IDD <3.50
TRIPLETS <4.50
The AFP test result indicates that this patient is
screen negative for open NTD. It should be noted
that normal test results can never guarantee the
of a normal baby and that 2-3% of newborns
have some type of physical or mental defect, many
of which are undetectable through any known
diagnostic technique.
This is a screening test, not a diagnostic test.
This risk assessment report is based in part on
demographic data provided by the ordering
physician. Please notify the laboratory promptly
if any data are incorrect. For assistance with
recalculations, please call your local [facility] laboratory. For assistance with
interpretation of these results, please contact
your Local [facility] genetic counselor or
call [phone] ([phone]).
Interpretive Cutoffs
Screen Positive for Open NTD:
> or = 2.50 adjusted MOM
> or = 1.90 adjusted MOM for insulin- dependent diabetics
> or = 4.00 adjusted MOM for twins
> or = 3.50 adjusted MOM for twins insulin-dependent diabetics
> or = 4.50 adjusted MOM for triplets
For additional information, please refer to
[email or web address]
(This link is being provided for
informational/educational purposes only.) DATE OF 04/27/2023 09:35:36 1990 Final COLLECTION DATE 04/27/2023 09:35:36 04/27/2023 Final MATERNAL WEIGHT 04/27/2023 09:35:36 133 (lbs ) Final EST'D DATE OF DELIVERY 04/27/2023 09:35:36 09/25/2023 Final TIMOTHY DETERMINED BY 04/27/2023 09:35:36 LMP Final MOTHER'S ETHNIC ORIGIN 04/27/2023 09:35:36 WHITE Final NUMBER OF FETUSES 04/27/2023 09:35:36 1 Final INSULIN DEPEND DIABETIC 04/27/2023 09:35:36 N Final REPEAT SPECIMEN 04/27/2023 09:35:36 N Final HX OF NEURAL TUBE DEFECTS 04/27/2023 09:35:36 N Final PREV DOWN SYND 04/27/2023 09:35:36 N Final DONOR EGG 04/27/2023 09:35:36 N Final DONOR AGE: EGG RETRIEVAL 04/27/2023 09:35:36 NOT GIVEN Final Test performed by [facility]
[address],
[place] [address]

[place]ding Pantograph Machine Operator: Batool Dumont MD,PHD,YESSENIA
Test Reported by Nara Rojas,
[facility],
[address] [place], [place]
Jeffery Morales M.D., Ph.D., Director of Laboratories
, [place] [id number] Performing Location
--- OUTSIDE RECORDS SUMMARY | 2023-09-21 23:45 | External Medical Summary | Summary of Care ---
Author Name Unknown Organization [facility] Address [address] [facility] [place] [address] Phone [phone] Care Team Providers Care Flare Stitcher Name Role Phone Shelby Hector MD Primary Care Provid er Reason for Visit * Reason Comments Return Visit Encounter Details Date Type Department Care Team (Late st Contact Info) Description 03/29/2023 11:45 AM EST Office Visit Gynecology/Obstetric s Zonia Dixon [address] [place] [address] Gail Peterson CRNP [address] [place] [address] Normal in second trimester*; Multigravida of advanced [...] as of this encounter (statuses as of 03/29/2023) Medications Medication Sig Dispensed Refills Start Date [...] as of this encounter (statuses as of 03/29/2023) Active Problems Problem Noted Date Diagnosed Date [...] as of this encounter (statuses as of 03/29/2023) Resolved Problems Problem Noted Date Diagnosed Date Resolved Date Pilonidal cyst 08/17/2010 09/26/2016 CELLULITIS OF BUTTOCK, RIGHT UPPER 08/17/2010 07/15/2016 STREP SORE THROAT 06/04/2002 07/15/2016 ACUTE URI NOS 06/04/2002 07/15/2016 documented as of this encounter (statuses as of 03/29/2023) Immunizations Name Administration Dates Next Due PPD 12/08/2015 Season Influenza, Cell Culte r, 18+ Yrs, With Preserv (Flucelvax) 01/22/2014 Seasonal [...] in the Last Year Never true 10/30/2018 [place] Depression Scale Answer Date Recorded [place] Depression Scale Total 6 03/01/2023 The thought [...] Reading Time Taken Comments Blood Pressure 116/70 03/29/2023 11:42 AM EST Pulse - - Temperature - - Respiratory Rate - - Oxygen Saturation - - Inhaled Oxygen Concentration - - Weight 58.7 kg (129 lb 6.4 oz) 03/29/2023 11:42 AM EST Height - - Body Mass Index 22.93 08/29/2022 3:06 PM EDT documented in this encounter Progress Notes * Gail Peterson CRNP - 03/29/2023 11:47 AM EST 14w2d No bleeding/cramping. Not feeling movement yet. Nausea still present, manageable if she eats regularly. Staying hydrated. Low risk NIPT - having a girl! Discussed MSAFP and role in screening for ONTD- can check insurance, reviewed timing of test. 4 week return, will schedule anatomy scan at 20 weeks - ordered. SAVI Peguero * Barbi Garcia LPN - 03/29/2023 11:41 AM EST 14w2d Denies vaginal bleeding/rom Absent movement documented in this encounter Plan of Treatment Upcoming Encounters Date Type Department Care Team (Late st Contact Info) Description 04/27/2023 9:15 AM EST Office Visit Gynecology/Obstetrics [facility] [address] [place] [address] Gail Peterson CRNP [address] [place] [address] 05/10/2023 9:15 AM EST Imaging Radiology [facility] [address] [place] [address] Scheduled Orders Name Type Priority Associated Diagnoses Orde r Schedule US PREG SINGLE/1ST GEST, 14 WEEKS OR LATER Medical Imaging Routine Normal in second trimester Expected: 05/08/2023 (Approximate), Expires: 04/29/2024 Health Maintenance Due Date Last Done Comments [...] and were consensually agreed upon. Care Teams Flare Stitcher Relationship Specialty Start Date End Date Shelby Hector MD [address] [place] [address] PCP - General Family Medicine 06/14/22 documented as of this encounter
--- OUTSIDE RECORDS SUMMARY | 2023-09-21 23:45 | External Medical Summary ---
Author Name Unknown Address Unknown Organization K01:LABORATORY [facility] - [facility] [address] [place] [address] Laboratory Report Ordering Provider Test Date Status ALETHA GUZMÁN 06/22/2023 11:37:40 Final Observation Date Value Abnormality Reference (Units ) Status WBC, Total 06/22/2023 11:37:40 10.59 4.00-10.8 0 (K/uL) Final RBC 06/22/2023 11:37:40 3.46 3.85-5.15 (M/uL) Final Hemoglobin 06/22/2023 11:37:40 10.7 Below low normal 12 .0-15.3 (g/dL) Final Anemia reflex testing trigge rs on a HGB < 12.0 for Females and HGB < 13.0 for Males in accordance with the WHO Anemia Guidelines
Anemia reflex testing triggers on a HGB < 12.0 for Females and HGB < 13.0 for Males in accordance with the WHO Anemia Guidelines HCT 06/22/2023 11:37:40 32.4 Below low normal 36. 0-45.2 (%) Final MCV 06/22/2023 11:37:40 93.6 81.5-97.5 (fL) Final MCH 06/22/2023 11:37:40 30.9 27.0-34.0 (pg) Final MCHC 06/22/2023 11:37:40 33.0 32.0-36.0 (g/dL) Final RDW 06/22/2023 11:37:40 12.5 11.5-15.5 (%) Final Platelets 06/22/2023 11:37:40 293 140-400 (K /uL) Final MPV 06/22/2023 11:37:40 10.3 6.6-11.1 ( fL) Final Nucleated erythrocytes/100 leukocytes [Ratio] in Blood by Automated count 06/22/2023 11:37:40 0 <=0 (/100 WBCs) Final Performing Location LABORATORY [facility] - [address] [facility] [address]
[2023-09-22] MEDS: LACTATED RINGER'S 1,000 ML IV SCH ×3 (00:40→22:15)
--- NOTE | 2023-09-22 00:50 | Obstetrical Progress Note ---
Date of Service September 22, 2023 Assessment & Plan Admission and Anticipated Discharge Date Admission Date: September 21, 2023 Subjective Patient has been thinking about this and had more questions about C section vs trial of labor Answered them all. VE: unchanged from last exam, Oxytocin had been at 26 miu/min She has decided to have C section. Patient understands C section is a major surgery, with risks including but not limited to bleeding , infection, injury to surrounding organs like bowels, bladder, ureters, adhesions, scarring, wound infection, blood cloths in legs/ lungs, longer recovery. All questions were answered. She signed an informed consent. Results & Data Vital Signs (Past 12 Hours) Vital Signs Temp Pulse Resp BP Pulse Ox 09/22/23 00:46 84 100 09/22/23 00:41 91 H 100 09/22/23 00:40 80 141/90 H 09/22/23 00:36 89 99 09/22/23 00:31 83 99 09/22/23 00:26 82 100 09/22/23 00:25 93 H 132/82 09/22/23 00:21 90 100 09/22/23 00:16 90 99 09/22/23 00:11 89 100 09/22/23 00:09 84 132/77 09/22/23 00:06 84 99 09/22/23 00:01 85 100 09/22/23 00:00 20 09/22/23 00:00 20 09/21/23 23:56 98 H 123/60 100 09/21/23 23:51 91 H 100 09/21/23 23:46 83 99 09/21/23 23:41 87 100 09/21/23 23:39 81 142/69 H 09/21/23 23:36 86 100 09/21/23 23:31 93 H 100 09/21/23 23:26 83 99 09/21/23 23:25 81 144/68 H 09/21/23 23:21 80 100 09/21/23 23:16 81 100 09/21/23 23:11 91 H 100 09/21/23 23:06 85 100 09/21/23 23:02 20 09/21/23 23:02 20 09/21/23 23:01 101 H 100 09/21/23 22:56 89 100 09/21/23 22:54 99 H 124/68 09/21/23 22:51 91 H 99 09/21/23 22:46 84 99 09/21/23 22:41 100 09/21/23 22:41 81 05 22:41 81 136/71 09/21/23 22:36 86 100 09/21/23 22:31 84 100 09/21/23 22:30 18 09/21/23 22:30 18 09/21/23 22:26 77 99 09/21/23 22:25 96 H 136/77 09/21/23 22:21 89 100 09/21/23 22:16 84 99 09/21/23 22:11 72 99 09/21/23 22:09 90 124/70 09/21/23 22:06 85 100 09/21/23 22:01 77 100 09/21/23 22:00 18 09/21/23 22:00 18 09/21/23 21:56 76 139/76 100 09/21/23 21:51 70 100 09/21/23 21:46 76 100 09/21/23 21:41 73 100 09/21/23 21:40 76 118/75 09/21/23 21:36 87 100 09/21/23 21:31 71 100 09/21/23 21:30 20 09/21/23 21:30 20 09/21/23 21:26 100 09/21/23 21:26 80 09/21/23 21:26 71 131/73 09/21/23 21:25 37.0 C 09/21/23 21:21 78 100 09/21/23 21:16 72 100 09/21/23 21:11 86 100 09/21/23 21:10 85 123/64 09/21/23 21:06 71 100 09/21/23 21:01 85 99 09/21/23 21:00 18 09/21/23 21:00 18 09/21/23 20:56 85 100 09/21/23 20:54 83 126/73 09/21/23 20:51 74 99 09/21/23 20:46 82 100 09/21/23 20:41 71 99 09/21/23 20:40 74 123/63 09/21/23 20:36 80 100 09/21/23 20:31 81 100 09/21/23 20:30 18 09/21/23 20:30 18 09/21/23 20:26 79 100 09/21/23 20:25 81 121/62 09/21/23 20:21 79 100 09/21/23 20:16 79 100 09/21/23 20:11 81 118/65 100 09/21/23 20:05 102 H 99 09/21/23 20:00 98 H 18 99 09/21/23 19:55 94 H 98 09/21/23 19:54 90 122/75 09/21/23 19:50 100 H 98 09/21/23 19:45 107 H 97 09/21/23 19:40 110 H 98 09/21/23 19:39 88 130/76 09/21/23 19:35 106 H 98 09/21/23 19:30 102 H 100 09/21/23 19:25 99 H 99 09/21/23 19:20 36.8 C 20 09/21/23 19:20 90 99 09/21/23 19:15 36.8 C 106 H 18 98 09/21/23 19:10 97 H 129/63 98 09/21/23 19:05 102 H 98 09/21/23 19:00 93 H 99 09/21/23 18:55 105 H 98 09/21/23 18:54 110 H 118/67 09/21/23 18:50 90 99 09/21/23 18:45 94 H 99 09/21/23 18:40 100 H 99 09/21/23 18:39 90 121/66 09/21/23 18:35 94 H 100 09/21/23 18:30 93 H 100 09/21/23 18:26 88 119/63 09/21/23 18:25 86 99 09/21/23 18:20 104 H 98 09/21/23 18:15 98 H 99 09/21/23 18:11 100 H 114/57 L 09/21/23 18:10 106 H 100 09/21/23 18:05 97 H 98 09/21/23 18:01 18 09/21/23 18:01 36.8 C 18 09/21/23 18:00 93 H 99 09/21/23 17:55 100 09/21/23 17:55 93 H 09/21/23 17:55 94 H 102/56 L 09/21/23 17:50 88 99 09/21/23 17:45 82 99 09/21/23 17:40 94 H 113/57 L 100 09/21/23 17:35 89 99 09/21/23 17:30 37.3 C 90 99 09/21/23 17:26 90 110/54 L 09/21/23 17:25 107 H 99 09/21/23 17:20 79 100 09/21/23 17:15 85 99 09/21/23 17:10 100 09/21/23 17:10 83 09/21/23 17:10 83 129/67 09/21/23 17:05 81 100 09/21/23 17:00 81 100 09/21/23 16:55 82 100 09/21/23 16:54 86 123/70 09/21/23 16:50 103 H 100 09/21/23 16:45 92 H 100 09/21/23 16:42 87 140/77 09/21/23 16:40 85 99 09/21/23 16:35 77 99 09/21/23 16:30 78 100 09/21/23 16:27 77 125/67 09/21/23 16:25 81 100 09/21/23 16:20 90 100 09/21/23 16:15 99 H 100 09/21/23 16:10 100 09/21/23 16:10 87 09/21/23 16:10 87 129/62 91 09/21/23 16:05 83 100 09/21/23 16:00 91 H 100 09/21/23 15:55 93 H 127/64 100 09/21/23 15:50 75 100 09/21/23 15:45 85 100 09/21/23 15:40 95 H 100 09/21/23 15:35 72 100 09/21/23 15:30 69 99 09/21/23 15:25 100 09/21/23 15:25 89 09/21/23 15:25 71 126/68 09/21/23 15:20 78 100 09/21/23 15:15 86 96 09/21/23 15:11 76 122/71 09/21/23 15:10 78 100 09/21/23 15:05 100 H 98 09/21/23 15:00 72 100 09/21/23 14:55 75 121/67 100 05/30/24 14:50 74 100 09/21/23 14:45 68 99 09/21/23 14:40 99 09/21/23 14:40 71 05 14:40 67 115/63 09/21/23 14:35 71 99 09/21/23 14:30 70 99 09/21/23 14:25 71 113/71 100 09/21/23 14:22 73 92 09/21/23 14:20 70 98 09/21/23 14:15 75 99 09/21/23 14:10 87 116/64 98 09/21/23 14:05 89 98 09/21/23 14:00 36.5 C 16 09/21/23 14:00 80 99 09/21/23 13:55 84 99 09/21/23 13:54 86 121/75 09/21/23 13:51 83 124/74 09/21/23 13:50 98 09/21/23 13:50 83 09/21/23 13:50 85 126/77 09/21/23 13:47 96 H 119/73 09/21/23 13:45 91 H 124/69 99 09/21/23 13:42 96 H 121/70 09/21/23 13:40 97 H 100 09/21/23 13:39 91 H 130/74 09/21/23 13:35 100 H 100 05 13:31 110 H 131/84 09/21/23 13:30 96 H 100 09/21/23 13:25 89 100 09/21/23 13:24 84 129/69 09/21/23 13:20 96 H 100 09/21/23 13:18 91 H 129/69 09/21/23 13:15 88 100
[2023-09-22] MEDS: ceFAZolin 2000MG 2,000 MG/15 ML SYR IV ONE (01:19)
[2023-09-22] MEDS ORDERED: LIDOCAINE 2%/EPINEPHRINE 1:200,000 20 ML PF ONE (01:21)
[2023-09-22] MEDS ORDERED: ONDANSETRON INJ 2 MG/ML 2 ML VIAL ONE (01:21)
[2023-09-22] MEDS ORDERED: DEXAMETHASONE SOD INJ 4 MG/ML VIAL ONE (01:21)
[2023-09-22] MEDS ORDERED: KETOROLAC 30 MG/ML VIAL ONE (01:21)
[2023-09-22] MEDS ORDERED: OXYTOCIN 10 UNITS/ML VIAL ONE ×2 (01:21→02:32)
[2023-09-22] MEDS ORDERED: MoRPHine SULFATE PF 1 MG/ML 10 ML AMP/VIAL ONE (01:21)
[2023-09-22] MEDS: CLINDAMYCIN/D5W 900 MG/50 ML BAG IV SCH (01:21)
[2023-09-22] MEDS: CITRIC ACID/SODIUM CITRATE 15 ML UDC PO ONE (01:24)
--- NOTE | 2023-09-22 01:30 | Communication Note ---
Date of Service: September 22, 2023 Decision made to electively proceed with C/S. Epidural working well. Patient signed new consent for epidural anesthesia with back up plan GA. ASA 2.
[2023-09-22] MEDS ORDERED: DexMEDEtomidine HCL IV 100 MCG/ML VIAL IV ONE (02:22)
[2023-09-22] MEDS ORDERED: MIDAZOLAM HCL 1 MG/ML 2ML VIAL ONE (02:26)
[2023-09-22] MEDS: ARISTA ABSORBABLE HEMOSTAT 3GM TOP ONE (02:30)
[2023-09-22] MEDS ORDERED: ePHEDrine sulfate 50 MG/ML AMP IV PRN (02:31)
[2023-09-22] MEDS ORDERED: NALBUPHINE HCL 5 MG in SYRINGE 0 ML IV PRN (02:31)
[2023-09-22] MEDS ORDERED: LACTATED RINGER'S 500 ML IV PRN (02:31)
[2023-09-22] MEDS ORDERED: diphenhydrAMINE 50 MG/ML VIAL IV PRN ×2 (02:31→20:31)
[2023-09-22] MEDS ORDERED: ONDANSETRON INJ 2 MG/ML 2 ML VIAL IV PRN ×2 (02:31→20:31)
[2023-09-22] MEDS ORDERED: MEPERIDINE HCL 25 MG/ML CARP/VIAL IV PRN (02:31)
[2023-09-22] MEDS ORDERED: METOCLOPRAMIDE HCL 20 MG in SODIUM CHLORIDE 0.9% 50 ML IV PRN (02:31)
[2023-09-22] MEDS ORDERED: NALOXONE HCL 0.4 MG/1 ML VIAL/CARP IV PRN (02:31)
[2023-09-22] MEDS ORDERED: NALOXONE HCL 0.08 MG in SYRINGE 1.8 ML IV PRN (02:31)
[2023-09-22] MEDS ORDERED: PROMETHAZINE HCL 6.25 MG in SODIUM CHLORIDE 0.9% 50 ML IV PRN (02:31)
[2023-09-22] MEDS ORDERED: NALOXONE HCL 1 MG in SODIUM CHLORIDE 0.9% 1,000 ML IV PRN (02:31)
[2023-09-22] MEDS ORDERED: DROPERIDOL 5 MG/2 ML VIAL IV PRN (02:31)
[2023-09-22] MEDS ORDERED: DC INTRASPINAL MORPHINE SCH (02:45)
[2023-09-22] MEDS ORDERED: NO NARCOTICS OR SEDATIVES SCH (02:45)
[2023-09-22] MEDS ORDERED: SENNA 8.6 MG TAB PO PRN (03:01)
[2023-09-22] MEDS ORDERED: MAGNESIUM HYDROXIDE SUSP 30 ML UDC PO PRN (03:01)
[2023-09-22] MEDS ORDERED: HYDROCORTISONE ACETATE 25 MG SUPP PR PRN (03:01)
[2023-09-22] MEDS ORDERED: BENZOCAINE 20% SPRY 85 APPLN/85 GM CAN EXT PRN (03:01)
--- NOTE | 2023-09-22 03:04 | Anesthesiology Progress Note ---
Date of Service September 22, 2023 Anesthesia Post Procedure Vital Signs Vital Signs: Temp Pulse Resp BP Pulse Ox 09/22/23 01:36 106 H 94 09/22/23 01:31 95 09/22/23 01:31 96 H 09/22/23 01:31 94 H 94 09/22/23 01:26 111 H 95 09/22/23 01:21 94 H 100 09/22/23 01:16 93 H 99 09/22/23 01:11 89 99 09/22/23 01:09 80 144/75 H 09/22/23 01:06 80 99 09/22/23 01:01 88 99 09/22/23 00:56 93 H 99 09/22/23 00:51 84 100 09/22/23 00:46 84 100 09/22/23 00:41 91 H 100 09/22/23 00:40 37.4 C 80 141/90 H 09/22/23 00:36 89 99 09/22/23 00:31 83 99 09/22/23 00:30 20 09/22/23 00:30 20 09/22/23 00:26 82 100 09/22/23 00:25 93 H 132/82 09/22/23 00:21 90 100 09/22/23 00:16 90 99 09/22/23 00:11 89 100 09/22/23 00:09 84 132/77 09/22/23 00:06 84 99 09/22/23 00:01 85 100 09/22/23 00:00 09/22/23 00:00 20 09/21/23 23:56 98 H 123/60 100 09/21/23 23:51 91 H 100 09/21/23 23:46 83 99 09/21/23 23:41 87 100 09/21/23 23:39 81 142/69 H 09/21/23 23:36 86 100 09/21/23 23:31 93 H 100 09/21/23 23:26 83 99 09/21/23 23:25 81 144/68 H 09/21/23 23:21 80 100 09/21/23 23:16 81 100 09/21/23 23:11 91 H 100 09/21/23 23:06 85 100 09/21/23 23:02 20 09/21/23 23:02 20 09/21/23 23:01 101 H 100 09/21/23 22:56 89 100 09/21/23 22:54 99 H 124/68 09/21/23 22:51 91 H 99 09/21/23 22:46 84 99 09/21/23 22:41 100 09/21/23 22:41 81 09/21/23 22:41 81 136/71 09/21/23 22:36 86 100 09/21/23 22:31 84 100 09/21/23 22:30 18 09/21/23 22:30 18 09/21/23 22:26 77 99 09/21/23 22:25 96 H 136/77 09/21/23 22:21 89 100 09/21/23 22:16 84 99 09/21/23 22:11 72 99 09/21/23 22:09 90 124/70 09/21/23 22:06 85 100 09/21/23 22:01 77 100 09/21/23 22:00 18 09/21/23 22:00 18 09/21/23 21:56 76 139/76 100 09/21/23 21:51 70 100 09/21/23 21:46 76 100 09/21/23 21:41 73 100 09/21/23 21:40 76 118/75 09/21/23 21:36 87 100 09/21/23 21:31 71 100 09/21/23 21:30 20 09/21/23 21:30 20 09/21/23 21:26 100 09/21/23 21:26 80 09/21/23 21:26 71 131/73 09/21/23 21:25 37.0 C 09/21/23 21:21 78 100 09/21/23 21:16 72 100 09/21/23 21:11 86 100 09/21/23 21:10 85 123/64 09/21/23 21:06 71 100 09/21/23 21:01 85 99 09/21/23 21:00 18 09/21/23 21:00 18 09/21/23 20:56 85 100 09/21/23 20:54 83 126/73 09/21/23 20:51 74 99 09/21/23 20:46 82 100 09/21/23 20:41 71 99 09/21/23 20:40 74 123/63 0524 20:36 80 100 09/21/23 20:31 81 100 09/21/23 20:30 18 09/21/23 20:30 18 09/21/23 20:26 79 100 09/21/23 20:25 81 121/62 09/21/23 20:21 79 100 09/21/23 20:16 79 100 09/21/23 20:11 81 118/65 100 09/21/23 20:05 102 H 99 09/21/23 20:00 98 H 18 99 09/21/23 19:55 94 H 98 09/21/23 19:54 90 122/75 09/21/23 19:50 100 H 98 09/21/23 19:45 107 H 97 09/21/23 19:40 110 H 98 09/21/23 19:39 88 130/76 09/21/23 19:35 106 H 98 09/21/23 19:30 102 H 100 09/21/23 19:25 99 H 99 09/21/23 19:20 36.8 C 20 09/21/23 19:20 90 99 09/21/23 19:15 36.8 C 106 H 18 98 09/21/23 19:10 97 H 129/63 98 09/21/23 19:05 102 H 98 09/21/23 19:00 93 H 99 09/21/23 18:55 105 H 98 09/21/23 18:54 110 H 118/67 09/21/23 18:50 90 99 09/21/23 18:45 94 H 99 09/21/23 18:40 100 H 99 09/21/23 18:39 90 121/66 09/21/23 18:35 94 H 100 09/21/23 18:30 93 H 100 09/21/23 18:26 88 119/63 09/21/23 18:25 86 99 09/21/23 18:20 104 H 98 09/21/23 18:15 98 H 99 09/21/23 18:11 100 H 114/57 L 09/21/23 18:10 106 H 100 09/21/23 18:05 97 H 98 09/21/23 18:01 18 09/21/23 18:01 36.8 C 18 09/21/23 18:00 93 H 99 09/21/23 17:55 100 09/21/23 17:55 93 H 09/21/23 17:55 94 H 102/56 L 09/21/23 17:50 88 99 09/21/23 17:45 82 99 09/21/23 17:40 94 H 113/57 L 100 09/21/23 17:35 89 99 09/21/23 17:30 37.3 C 90 99 09/21/23 17:26 90 110/54 L 09/21/23 17:25 107 H 99 09/21/23 17:20 79 100 09/21/23 17:15 85 99 09/21/23 17:10 100 09/21/23 17:10 83 09/21/23 17:10 83 129/67 09/21/23 17:05 81 100 09/21/23 17:00 81 100 09/21/23 16:55 82 100 09/21/23 16:54 86 123/70 09/21/23 16:50 103 H 100 09/21/23 16:45 92 H 100 09/21/23 16:42 87 140/77 09/21/23 16:40 85 99 09/21/23 16:35 77 99 09/21/23 16:30 78 100 09/21/23 16:27 77 125/67 09/21/23 16:25 81 100 09/21/23 16:20 90 100 09/21/23 16:15 99 H 100 09/21/23 16:10 100 09/21/23 16:10 87 09/21/23 16:10 87 129/62 91 09/21/23 16:05 83 100 09/21/23 16:00 91 H 100 09/21/23 15:55 93 H 127/64 100 09/21/23 15:50 75 100 09/21/23 15:45 85 100 09/21/23 15:40 95 H 100 09/21/23 15:35 72 100 09/21/23 15:30 69 99 09/21/23 15:25 100 09/21/23 15:25 89 09/21/23 15:25 71 126/68 09/21/23 15:20 78 100 09/21/23 15:15 86 96 09/21/23 15:11 76 122/71 09/21/23 15:10 78 100 09/21/23 15:05 100 H 98 09/21/23 15:00 72 100 09/21/23 14:55 75 121/67 100 09/21/23 14:50 74 100 09/21/23 14:45 68 99 09/21/23 14:40 99 09/21/23 14:40 71 09/21/23 14:40 67 115/63 09/21/23 14:35 71 99 09/21/23 14:30 70 99 09/21/23 14:25 71 113/71 100 09/21/23 14:22 73 92 09/21/23 14:20 70 98 09/21/23 14:15 75 99 09/21/23 14:10 87 116/64 98 09/21/23 14:05 89 98 09/21/23 14:00 36.5 C 16 09/21/23 14:00 80 99 09/21/23 13:55 84 99 09/21/23 13:54 86 121/75 09/21/23 13:51 83 124/74 09/21/23 13:50 98 09/21/23 13:50 83 09/21/23 13:50 85 126/77 09/21/23 13:47 96 H 119/73 09/21/23 13:45 91 H 124/69 99 09/21/23 13:42 96 H 121/70 09/21/23 13:40 97 H 100 09/21/23 13:39 91 H 130/74 09/21/23 13:35 100 H 100 09/21/23 13:31 110 H 131/84 09/21/23 13:30 96 H 100 09/21/23 13:25 89 100 09/21/23 13:24 84 129/69 09/21/23 13:20 96 H 100 09/21/23 13:18 91 H 129/69 09/21/23 13:15 88 100 09/21/23 12:31 98 H 129/83 09/21/23 12:01 90 126/74 09/21/23 11:30 96 H 132/77 09/21/23 11:00 36.5 C 16 09/21/23 08:40 109 H 114/71 09/21/23 08:00 36.5 C 18 09/21/23 07:15 115 H 120/61 05/24 06:31 18 09/21/23 06:31 36.4 C L 18 09/21/23 05:17 36.5 C 18 09/21/23 05:00 121 H 137/84 09/21/23 04:58 18 09/21/23 04:58 36.5 C 18 Pain Intensity Bilateral Anterior Abdomen: Pain Intensity: 2 Transfer of Care Handoff Completed per policy Notes Mental Status: alert / awake / arousable Patient Amnestic to Procedure: Yes Nausea / Vomiting: adequately controlled Pain: adequately controlled Airway Patency, RR, SpO2: stable & adequate BP & HR: stable & adequate Hydration State: stable & adequate Neuraxial Anesthesia: was administered and sensory block is resolving Anesthetic Complications: no major complications apparent and Pt Satisfied with anesthetic care
--- NOTE | 2023-09-22 03:04 | Anesthesia Procedure Note ---
Date of Service September 22, 2023 Anesthesia Post Epidural Note Vital Signs Vital Signs: Temp Pulse Resp BP Pulse Ox 37.4 C 106 H 20 144/75 H 94 09/22/23 00:40 09/22/23 01:36 09/22/23 00:30 09/22/23 01:09 09/22/23 01:36 Pain Intensity Bilateral Anterior Abdomen: Pain Intensity: 2 Notes Mental Status: alert / awake / arousable and participated in evaluation Nausea / Vomiting: adequately controlled Pain: adequately controlled Airway Patency, RR, SpO2: stable & adequate BP & HR: stable & adequate Hydration State: stable & adequate Neuraxial Anesthesia: was administered and sensory block is resolving Anesthetic Complications: no major complications apparent Epidural: Removed without complications and With tip intact
--- NOTE | 2023-09-22 03:15 | Operative Report ---
Post Operative Report Pre & Post Diagnosis Operation Date: 09/22/23 01:40 Pre-Op Diagnosis: 1. Arrest to progress despite adequate contractions documented by intrauterine pressure catheter 2. Suspected macrosomia Post-Op Diagnosis: 1. Arrest to progress despite adequate contractions documented by intrauterine pressure catheter 2. Suspected macrosomia I identified the patient and participated in the time-out.: Yes Procedure Operation Date: 09/22/23 01:40 Actual Procedures p Section in [facility] 09/22/23 at 0206 - Clara Almaguer MD Surgeon Clara Almaguer MD Brand Communications Manager Myesha Swift RN Estimated Blood Loss 804 Findings Consistent with Post-Op Diagnosis Baby was a viable female infant, delivered at 02:06 am, in direct OP position,cephalic presentatio , Apgars 9/9, weight 3920 gr, 8 lb 10 oz Maternal findings: Normal uterus, fallopian tubes and ovaries. Specimens Placenta Drains Carlson catheter: 500 ml clear urine Anesthesia Type Labor Epidural Complications none Disposition Accompanied Patient To Recovery: Yes Indications The patient was a 33-year-old G1, P0 at 39 weeks and 5 days of gestation who was admitted on September 20 with spontaneous rupture of membranes at term, remote from delivery,IV oxytocin per protocol increase to maximum dose guided by IUPC, prolonged rupture of membranes, failure to progress despite adequate contractions, direct OP posterior position, suspected macrosomia/CPD. Description of Procedure Patient was taken to operating room where epidural anesthesia was checked to be adequate. She was placed in dorsal supine position with a leftward tilt. She was prepared and draped in usual sterile fashion. A financial skin incision was made and carried through to the underlying layer of fascia with the Bovie. Fascia was incised in the midline and incision was extended laterally with the help of Cline scissors. Then the upper aspect of the fascial incision was grasped with 2 Niko clamps elevated the underlying rectus muscles were dissected off sharply with Cline scissors. Same thing was done on the lower incision. Then the muscles were in the midline, peritoneum was identified grasped with 2 pickups and entered sharply with Metzenbaum scissors. Peritoneal incision was extended superior and inferiorly with good visualization of the bladder. The bladder blade was inserted. Vesicouterine peritoneum was identified, grasped with pickups and entered sharply with Metzenbaum scissors, bladder flap was created digitally and bladder blade was reinserted. Uterus was incised in transverse fashion, incision was extended laterally , membranes were ruptured and clear fluid was obtained. Baby's head was brought to the incision and delivered without difficulty, followed by shoulders with minimal traction and the whole baby without difficulty. Mouth and nose were suctioned there was dried on the field he was vigorously crying and moving. The cord was clamped times and cut at 1 minute delay and then the was handed off to the pediatric team. Then the placenta was delivered manually as intact and complete. Unable to externalize the uterus due to its size. Uterine incision was repaired with 0 Vicryl in a running locked fashion, second umbricating layer was placed with the same suture in running locked fashion. Excellent hemostasis achieved. pelvis was irrigated with warm normal saline and suctioned. Incision was checked To be hemostatic again. parietal peritoneum was reapproximated with 3-0 Vicryl in a running fashion and the muscles were reapproximated in the same suture in a running fashion. All of the fascia and rectus muscles were hemostatic. Rectus fascia was reapproximated with 0 Vicryl in continuous fashion. Subcuticular fat tissue was brought together with 2-0 Vicryl in a running fashion, skin was closed with 4-0 Monocryl in a subcuticular cuticular fashion. The mom and baby tolerated procedure well. Sponge needle instrument count was correct x3. No complications happened, I was present during whole procedure. the patient was given cefazolin and clindamycin before surgery and azithromycin during surgery. My production administrative assistant was needed for retraction, hemostasis and aid during delivery of infant I attest to the content of the Intraoperative Record and any orders documented therein. Any exceptions are noted below.
[2023-09-22] MEDS: ACETAMINOPHEN 1,000 MG/100 ML VIAL IV STA (03:54)
[2023-09-22] MEDS: OXYTOCIN 20 UNITS in D5W AND LACTATED RINGERS 1,000 ML IV SCH (06:00)
[2023-09-22] MEDS: DIPHTHER/TETAN/PERTUS Vaccine (Tdap, Adol/Adult) 0.5mL IM ONE (06:35)
[2023-09-22] MEDS: SODIUM CHLORIDE 0.9% PF INJ 10 ML VIAL EPI STA (08:06)
[2023-09-22] MEDS: fentaNYL citrate PF 100 MCG/2 ML VIAL EPI STA (08:06)
[2023-09-22] MEDS: LIDOCAINE 2%/EPINEPHRINE 1:200,000 20 ML PF EPI STA (08:06)
[2023-09-22] MEDS: BUPIVACAINE 0.25% PF 30 ML VIAL EPI STA (08:06)
[2023-09-22] MEDS: MEASLES, MUMPS & RUBELLA VIRUS VACCINE (MMR) 0.5ML VIAL SQ ONE (08:07)
[2023-09-22] MEDS ORDERED: Nursing to Pharmacy Communication SCH (08:15)
[2023-09-22] MEDS: FERROUS SULFATE 325 MG TAB PO SCH (08:38)
[2023-09-22] MEDS: DOCUSATE SODIUM 100 MG CAP PO SCH (08:38)
[2023-09-22] MEDS: SIMETHICONE 80 MG CHEW PO SCH (08:38)
[2023-09-22] MEDS: KETOROLAC 30 MG/ML VIAL IV PRN (11:06)
[2023-09-22] MEDS: PRENATAL VITAMIN 1 TAB PO SCH (11:52)
[2023-09-22] MEDS: HYDROmorphone INJ 0.5 MG/0.5 ML SYR IV PRN ×2 (14:39→20:47)
[2023-09-22] MEDS: OXYTOCIN 20 UNITS/LR 1,002 ML IV SCH (14:42)
[2023-09-22] MEDS ORDERED: PROMETHAZINE HCL 25 MG in SODIUM CHLORIDE 0.9% 50 ML IV PRN (20:31)
[2023-09-22] MEDS ORDERED: diphenhydrAMINE Capsule 25 MG CAP PO PRN (20:31)
[2023-09-22] MEDS ORDERED: KETOROLAC 30 MG/ML VIAL IV PRN (20:31)
[2023-09-22] MEDS ORDERED: MEPERIDINE HCL 50 MG/ML CARP IV PRN (20:31)
[2023-09-22] MEDS: AZITHROMYCIN 500 MG in DEXTROSE 5% 250 ML IV ONE (22:14)
[2023-09-22] MEDS: MoRPHine SULFATE PF 1 MG/ML 10 ML AMP/VIAL EPI ONE (22:15)
[2023-09-22] MEDS: SODIUM CHLORIDE 0.9% 1,000 ML IV SCH (22:15)
[2023-09-23] MEDS: ACETAMINOPHEN 325 MG TAB PO STA (00:13)
[2023-09-23 06:28] LABS: Hematocrit (blood only) 31.5 % (37.0-47.0); Hemoglobin 10.6 g/dl (12.0-16.0); Mean Corpuscular Hemoglobin 31.1 pg (25.0-34.0); Mean Corpuscular Hgb Conc 33.7 g/dL (32.0-36.0); Mean Corpuscular Volume 92.4 fL (80.0-100.0); Mean Platelet Volume 10.7 fL (9.4-12.4); Platelet Count 169 K/uL (130-400); RDW Coefficient of Variation 14.8 % (11.5-14.5); RDW Standard Deviation 50.6 fL (36.4-46.3); Red Blood Count 3.41 M/uL (4.20-5.40); White Blood Count 15.27 K/ul (4.8-10.8)
[2023-09-23 06:52] LABS: Basophils # (auto) 0.03 K/uL (0.00-0.20); Basophils % (auto) 0.2 %; Immature Granulocytes # (auto) 0.08 K/uL (0.01-0.20); Immature Granulocytes % (auto) 0.5 %; Lymphocytes # (auto) 1.11 K/uL (1.20-3.40); Lymphocytes % (auto) 7.3 %; Monocytes # (auto) 0.76 K/uL (0.11-0.59); Neutrophils # (auto) 13.29 K/uL (1.40-6.50)
[2023-09-23] MEDS: IBUPROFEN 600 MG TAB PO PRN (07:58)
[2023-09-23] MEDS: oxyCODONE/ACETAMINOPHEN 5mg/325mg TAB PO PRN (07:58)
[2023-09-23] MEDS ORDERED: ACETAMINOPHEN 325 MG TAB PO PRN (10:35)
--- NOTE | 2023-09-23 10:35 | Obstetrical Progress Note ---
Date of Service September 23, 2023 Assessment & Plan Admission and Anticipated Discharge Date Admission Date: September 21, 2023 Subjective Patient is seen and examined. She feels better, complains of soreness while moving in and out of bed. Pain is under control with oral meds. Ambulated to BR only without dizziness Voiding without difficulty Tolerating regular diet with out N&V Flatus + BM + watery once, h/o IBS Bleeding is minimal No fever/ chills/ CP/ SOB/ N&V/ Leg pain Breast feeding without problems Vital Signs Temp Pulse Resp BP Pulse Ox O2 Del Method 09/23/23 08:00 36.8 C 90 18 130/75 94 Room Air 09/23/23 03:55 36.6 C 09/23/23 01:00 37.4 C 09/23/23 00:00 38.5 C H 09/22/23 23:05 101 H 18 120/73 93 Room Air Lab Results 09/21/23 09/21/23 09/22/23 Range/Units 05:30 06:05 01:19 WBC 10.19 (4.8-10.8) K/ul RBC 4.09 L (4.20-5.40) M/uL Hgb 12.6 (12.0-16.0) g/dl Hct 37.4 (37.0-47.0) % MCV 91.4 (80.0-100.0) fL MCH 30.8 (25.0-34.0) pg MCHC 33.7 (32.0-36.0) g/dL RDW Std Deviation 49.7 H (36.4-46.3) fL RDW Coeff of Caroline 14.7 H (11.5-14.5) % Plt Count 209 (130-400) K/uL MPV 11.3 (9.4-12.4) fL Immature Gran % (Auto) % Neut % (Auto) % Lymph % (Auto) % [place] % (Auto) % Eos % (Auto) % Baso % (Auto) % Neut # (Auto) (1.40-6.50) K/uL Lymph # (Auto) (1.20-3.40) K/uL [place] # (Auto) (0.11-0.59) K/uL Eos # (Auto) (0.00-0.50) K/uL Baso # (Auto) (0.00-0.20) K/uL Immature Gran # (Auto) (0.01-0.20) K/uL Amniotic Protein POS RPR Nonreactive (Nonreactive) Blood Type A Negative Antibody Screen NEGATIVE Screen (Negative) 09/23/23 Range/Units 06:00 WBC 15.27 H (4.8-10.8) K/ul RBC 3.41 L (4.20-5.40) M/uL Hgb 10.6 L (12.0-16.0) g/dl Hct 31.5 L (37.0-47.0) % MCV 92.4 (80.0-100.0) fL MCH 31.1 (25.0-34.0) pg MCHC 33.7 (32.0-36.0) g/dL RDW Std Deviation 50.6 H (36.4-46.3) fL RDW Coeff of Caroline 14.8 H (11.5-14.5) % Plt Count 169 (130-400) K/uL MPV 10.7 (9.4-12.4) fL Immature Gran % (Auto) 0.5 % Neut % (Auto) 87.0 % Lymph % (Auto) 7.3 % [place] % (Auto) 5.0 % Eos % (Auto) 0.0 % Baso % (Auto) 0.2 % Neut # (Auto) 13.29 H (1.40-6.50) K/uL Lymph # (Auto) 1.11 L (1.20-3.40) K/uL [place] # (Auto) 0.76 H (0.11-0.59) K/uL Eos # (Auto) 0.00 (0.00-0.50) K/uL Baso # (Auto) 0.03 (0.00-0.20) K/uL Immature Gran # (Auto) 0.08 (0.01-0.20) K/uL Amniotic Protein RPR (Nonreactive) Blood Type A Negative Antibody Screen Cancelled Screen Negative (Negative) PE: General: Alert, orientedx3, NAD CVS: S1S2 RRR Lungs; CTAB Abd: soft, NT, ND, BS+, fundus firm, below Umbilicus Incision/ dressing: Clean, dry, intact, desires it removed in shower Perineum intact, Lochia rubra minimal Ext; NT, 2+/ 2+ edema, Homans sign neg/ neg AP: 33 yo s/p C Section, pod# 1 VSS Afebrile doing well Was placed on IV AB for 24 hours after delivery for prolonged ROM/ Labor, tachycardia, it was cancelled yesterday afternoon Still has IV site, will complete last dose now Continue routine postop care Encourage ambulation, PO intake All questions were answered Results & Data Vital Signs (Past 12 Hours) Vital Signs Temp Pulse Resp BP Pulse Ox O2 Del Method 09/23/23 08:00 36.8 C 90 18 130/75 94 Room Air 09/23/23 03:55 36.6 C 09/23/23 01:00 37.4 C 09/23/23 00:00 38.5 C H 09/22/23 23:05 101 H 18 120/73 93 Room Air
[2023-09-23] MEDS: ceFAZolin 2000MG 2,000 MG/15 ML SYR IV ONE (12:49)
[2023-09-23] MEDS: CLINDAMYCIN/D5W 900 MG/50 ML BAG IV ONE (12:49)
[2023-09-23] MEDS: ADVANCED PROBIOTIC 625 MG CAPSULE PO SCH (12:50)
[2023-09-23] MEDS: bisacodyL 5 MG TABEC PO SCH (20:28)
[2023-09-24] MEDS ORDERED: bisacodyL 10 MG SUPP PR PRN (03:01)
[2023-09-24 06:53] LABS: Basophils # (auto) 0.04 K/uL (0.00-0.20); Basophils % (auto) 0.3 %; Eosinophils # (auto) 0.12 K/uL (0.00-0.50); Eosinophils % (auto) 0.9 %; Hematocrit (blood only) 29.7 % (37.0-47.0); Hemoglobin 9.8 g/dl (12.0-16.0); Immature Granulocytes % (auto) 0.8 %; Lymphocytes # (auto) 2.41 K/uL (1.20-3.40); Lymphocytes % (auto) 18.9 %; Mean Corpuscular Hemoglobin 30.7 pg (25.0-34.0); Mean Corpuscular Volume 93.1 fL (80.0-100.0); Mean Platelet Volume 10.8 fL (9.4-12.4); Monocytes % (auto) 4.7 %; Neutrophils % (auto) 74.4 %; Platelet Count 201 K/uL (130-400); RDW Coefficient of Variation 14.8 % (11.5-14.5); RDW Standard Deviation 51.2 fL (36.4-46.3); Red Blood Count 3.19 M/uL (4.20-5.40); White Blood Count 12.77 K/ul (4.8-10.8)
--- NOTE | 2023-09-24 11:02 | Obstetrical Progress Note ---
Date of Service September 24, 2023 Assessment & Plan Admission and Anticipated Discharge Date Admission Date: September 21, 2023 Subjective Patient is seen and examined. She feels well, no complaints. Decided to go home today. Pain is under control with oral meds. Ambulating without dizziness Voiding without difficulty Tolerating regular diet with out N&V Flatus + BM + Bleeding is minimal No fever/ chills/ CP/ SOB/ N&V/ Leg pain Breast feeding without problems Vital Signs Temp Pulse Pulse Resp BP BP BP 09/24/23 08:00 36.3 C L 99 H 22 108/74 09/24/23 04:15 36.5 C 79 18 116/76 09/23/23 23:05 36.5 C 96 H 18 125/82 09/23/23 19:45 36.4 C L 112 H 16 117/73 09/23/23 17:35 116 H 09/23/23 14:00 36.7 C 123 H 22 109/76 09/23/23 12:44 36.8 C 71 18 139/83 Pulse Ox O2 Del Method 09/24/23 08:00 97 Room Air 09/24/23 04:15 97 Room Air 09/23/23 23:05 97 Room Air 09/23/23 19:45 97 Room Air 09/23/23 17:35 09/23/23 14:00 96 Room Air 09/23/23 12:44 94 Intake and Output 09/23/23 09/24/23 09/24/23 22:59 06:59 14:59 Intake Total 50 / 52 Balance 50 / 52 Intake: IV 50 / 50 Clindamycin/D5w 900 mg In 50 ml 50 / 50 @ 100 mls/hr IV NOW ONE Rx#: [id number] Lab Results 09/21/23 09/21/23 09/22/23 Range/Units 05:30 06:05 01:19 WBC 10.19 (4.8-10.8) K/ul RBC 4.09 L (4.20-5.40) M/uL Hgb 12.6 (12.0-16.0) g/dl Hct 37.4 (37.0-47.0) % MCV 91.4 (80.0-100.0) fL MCH 30.8 (25.0-34.0) pg MCHC 33.7 (32.0-36.0) g/dL RDW Std Deviation 49.7 H (36.4-46.3) fL RDW Coeff of Caroline 14.7 H (11.5-14.5) % Plt Count 209 (130-400) K/uL MPV 11.3 (9.4-12.4) fL Immature Gran % (Auto) % Neut % (Auto) % Lymph % (Auto) % [place] % (Auto) % Eos % (Auto) % Baso % (Auto) % Neut # (Auto) (1.40-6.50) K/uL Lymph # (Auto) (1.20-3.40) K/uL [place] # (Auto) (0.11-0.59) K/uL Eos # (Auto) (0.00-0.50) K/uL Baso # (Auto) (0.00-0.20) K/uL Immature Gran # (Auto) (0.01-0.20) K/uL Amniotic Protein POS RPR Nonreactive (Nonreactive) Blood Type A Negative Antibody Screen NEGATIVE Screen (Negative) 09/23/23 09/24/23 Range/Units 06:00 06:26 WBC 15.27 H 12.77 H (4.8-10.8) K/ul RBC 3.41 L 3.19 L (4.20-5.40) M/uL Hgb 10.6 L 9.8 L (12.0-16.0) g/dl Hct 31.5 L 29.7 L (37.0-47.0) % MCV 92.4 93.1 (80.0-100.0) fL MCH 31.1 30.7 (25.0-34.0) pg MCHC 33.7 33.0 (32.0-36.0) g/dL RDW Std Deviation 50.6 H 51.2 H (36.4-46.3) fL RDW Coeff of Caroline 14.8 H 14.8 H (11.5-14.5) % Plt Count 169 201 (130-400) K/uL MPV 10.7 10.8 (9.4-12.4) fL Immature Gran % (Auto) 0.5 0.8 % Neut % (Auto) 87.0 74.4 % Lymph % (Auto) 7.3 18.9 % [place] % (Auto) 5.0 4.7 % Eos % (Auto) 0.0 0.9 % Baso % (Auto) 0.2 0.3 % Neut # (Auto) 13.29 H 9.50 H (1.40-6.50) K/uL Lymph # (Auto) 1.11 L 2.41 (1.20-3.40) K/uL [place] # (Auto) 0.76 H 0.60 H (0.11-0.59) K/uL Eos # (Auto) 0.00 0.12 (0.00-0.50) K/uL Baso # (Auto) 0.03 0.04 (0.00-0.20) K/uL Immature Gran # (Auto) 0.08 0.10 (0.01-0.20) K/uL Amniotic Protein RPR (Nonreactive) Blood Type A Negative Antibody Screen Cancelled Screen Negative (Negative) PE: General: Alert, orientedx3, NAD CVS: S1S2 RRR Lungs; CTAB Abd: soft, NT, ND, BS+, fundus firm, below Umbilicus Incision: Clean, dry, intact Perineum intact, Lochia rubra minimal Ext; NT, + edema, Homans sign neg/ neg AP: 33 yo s/p C Section, pod# 2 VSS Afebrile doing well Continue routine postop care Encourage ambulation, PO intake All questions were answered D/C home, f/u in office Results & Data Vital Signs (Past 12 Hours) Vital Signs Temp Pulse Resp BP BP Pulse Ox O2 Del Method 09/24/23 08:00 36.3 C L 99 H 22 108/74 97 Room Air 09/24/23 04:15 36.5 C 79 18 116/76 97 Room Air 09/23/23 23:05 36.5 C 96 H 18 125/82 97 Room Air
== END 2023-09-24 16:34 | disposition home or self-care (01) | DRG 788 ==
LOC: OPB 04:44 → 4S1 04:47 → 4E2 09-22 06:12